=== PATIENT | female | born 1980 | race Caucasian/White ===

== ENCOUNTER 2018-11-18 13:03 | Emergency (ER) | payer BC, SELFPAY ==
[2018-11-18 13:06] VITALS: BP 121/71; PULSE 81; RESP 18; TEMP 36.8; O2SAT 100
--- NOTE | 2018-11-18 13:16 | ED.GENADUL_ITS ---
Discharge Plan Disposition Patient Disposition: HOME Condition: Stable Discharge Details Chief Complaint: AnimalBite Clinical Impression: Dog bite of extremity Primary Care Provider: Fito Harris ED Provider: Rodger Aguillon Home Meds and New Rx's Prescriptions: Continued escitalopram oxalate [Lexapro] 10 mg Tablet 10 mg PO DAILY RF: 0 Discharge Instructions Instructions: Animal Bite (ED) Additional Instructions: Continue to observe signs of dog bite for any secondary infection. If you have worsening symptoms and return immediately for reassessment. You may use over -the-counter acetaminophen or ibuprofen for pain or discomfort. Referrals: Fito Harris [Primary Care Provider] - (As needed for reassessment) Discharge Data Discharge Date/Time-TO BE ENTERED AT DEPARTURE: 11/18/18 13:47 Medical Decision Making Patient presenting to the emergency department for chief complaint of dog bite. Patient states this happened approximately 1 hour ago when she got out of her car some dogs came up and sniffed her as she was approaching the house which she thought nothing of. Then as she walked close to the house a Japanese Bonner came up and bit her in the right thigh and the left posterior calf. She denies any other injury or trauma, states that this appeared to be more similar to n ormal dog behavior. She did go home after the incident and appropriately washed the wound and noted no deep puncture but significant bruising. Physical exam shows moderate ecchymosis and swelling slight swelling to the right thigh with small abrasion and no bleeding noted. No puncture wound is noted on exam. Right calf has small area of ecchymosis that patient states may or may not be acute but no tenderness and otherwise exam is unremarkable. Given only small abrasion I do not feel that patient needs any antibiotic therapies, did discuss with patient risk versus benefit of rabies vaccination series which after thorough discussion patient decided to defer on this medication which I feel is appropriate at this time. Patient does have tetanus that is greater than 10 years ago and is agreeable to updating tetanus today. Otherwise I do not feel there or any other treatments needed except for basic wound care that patient can perform at home. After discussion of diagnosis and plan of care patient has no further needs, questions, or concerns and states clear understanding to return to the emergency department for any worsening symptoms. HPI General Mode of arrival: ambulatory . Date/Time Provider Initiated Documentation: 11/18/18 13:12 . Limitations to Documentation: no limitations . Information obtained by: patient and RN notes reviewed . History of Present Illness 38 year old F presents to the emergency department with the chief complaint of Dog bite, right thigh, Patient notes no other symptoms.. Patient did receive the following treatments prior to arrival, none Related Data Home Medications Medication Instructions Recorded Confirmed escitalopram oxalate [Lexapro] 10 mg PO DAILY 11/18/18 11/18/18 Allergies Allergy/AdvReac Type Severity Reaction Status Date / Time No Known Allergies Allergy Unverified 11/18/18 13:09 General Stated Complaint: AnimalBite CHE: 3 Review of Systems Musculoskeletal Denies abnormal gait, Denies deformity, Denies limited range of motion and Denies muscle weakness Integumentary/Breasts Reports as per HPI Neurologic Denies abnormal gait PFSH Medical History Anxiety Surgical History Repair of umbilical hernia Social History Smoking/Tobacco Use Status: Never Alcohol Intake: never Do you feel safe at home: Yes Do you feel safe in your relationship?: Yes Exam Const General: cooperative, no acute distress and not ill appearing Orientation: alert, awake and oriented x3 Resp Effort & Inspection: normal respiratory effort, able to speak in complete sentences and no respiratory distress Extrem Right lower extremity: hip/thigh Details: tenderness Location: of the proximal upper leg Location: laterally, normal ROM and ecchymosis (To right thigh with small abrasion no puncture wound); no deformity Left lower extremity: lower leg Details: ecchymosis (lateral calf); no tenderness Course Vital Signs Temperature 36.8 C 11/18/18 13:06 Pulse 81 11/18/18 13:06 Respiratory Rate 18 11/18/18 13:06 Blood Pressure 121/71 11/18/18 13:06 Pulse Oximetry 100 11/18/18 13:06 Temperature 36.8 C 11/18/18 13:06 Temperature Source Skin 11/18/18 13:06 Pulse 81 11/18/18 13:06 Respiratory Rate 18 11/18/18 13:06 Respiratory Effort 11/18/18 13:10 Blood Pressure 121/71 11/18/18 13:06 Blood Pressure Position Sitting 11/18/18 13:06 Pulse Oximetry 100 11/18/18 13:06 Oxygen Delivery Method Room Air 11/18/18 13:06 Oxygen Flow Rate 0 11/18/18 13:06 Pain Level 1 11/18/18 13:06
[2018-11-18 13:50] VITALS: BP 121/71; PULSE 81; RESP 18; TEMP 36.8; O2SAT 100
== END 2018-11-18 13:47 | disposition home or self-care (01) ==
PROVIDERS: Emergency Provider Nurse Practitioner Family; PCP Nurse Practitioner Family
DX: S70.311A Abrasion, right thigh, initial encounter (principal); S80.12XA Contusion of left lower leg, initial encounter; W54.0XXA Bitten by dog, initial encounter
CPT/HCPCS: 99282

== ENCOUNTER 2019-04-01 01:04 | Outpatient (CLI) | payer BC, SELFPAY ==
[2019-04-01 09:53] LABS: Anion Gap 7.8 mmol/L (3-11); BUN 15 mg/dL (7-18); CO2 27.2 mmol/L (21.0-32.0); CREATININE 0.87 mg/dL (0.55-1.02); Calcium 8.3 mg/dL (8.5-10.1); Calculated LDL 71 mg/dL; Chloride 105 mmol/L (98-107); Cholesterol 124 mg/dL (50-200); Glucose 87 mg/dL (70-100); HDL Cholesterol 46 mg/dL (40-60); Potassium 4.3 mmol/L (3.5-5.1); Sodium 140 mmol/L (136-145); TSH 1.16 uIU/mL (0.36-3.74); Triglyceride 36 mg/dL (30-150)
== END 2019-04-01 01:24 ==
PROVIDERS: PCP Nurse Practitioner Family; Visit Provider Nurse Practitioner Family
DX: Z00.00 Encounter for general adult medical examination without abnormal findings (principal); Z83.49 Family history of other endocrine, nutritional and metabolic diseases
CPT/HCPCS: 36415; 80048; 80061; 84443

== ENCOUNTER 2020-04-07 12:32 | Outpatient (REF) | payer BC, SELFPAY ==
--- NOTE | 2020-04-07 09:30 | PAPFT_PTH ---
PATIENT: Lizy Daily LOC: XU U#:[id number] AGE/SX: 39/F ROOM: RE04/07/[address]: TONE Kumar : 1980 BED: DIS: 04/07/2020 SPEC #: [id number] RECD: 04/07/20 13:16 STATUS: DEWEY REDusty #: [id number] KAYLEE: 04/07/20 09:[address]: Patti Estrada DEPT: [facility] Cytology RECD BY: Daja Silva ENTERED: 04/07/20 13:16 SP TYPE: PAPFT OTHR DR: Fito Harris Tissues: 1 - CX/ENDOCX FOR PAP SMEARS Procedures: PAP THIN PREP/UVM Screening HPV DNA PROBE Comments: [id number] ([id number] [facility])
== END 2020-04-07 12:52 ==
LOC: LBN 12:32
PROVIDERS: PCP Nurse Practitioner Family; Visit Provider Nurse Practitioner Family
DX: Z12.4 Encounter for screening for malignant neoplasm of cervix (principal)
CPT/HCPCS: 88142; 87624

== ENCOUNTER 2020-11-25 16:49 | Outpatient (REF) | payer BC, SELFPAY ==
[2020-11-29 14:58] LABS: Chlamydia Result Negative (Negative); GC Result Negative (Negative)
== END 2020-11-25 16:50 | disposition home or self-care (01) ==
LOC: LBN 16:49
PROVIDERS: PCP Nurse Practitioner Family; Visit Provider Nurse Practitioner Family
DX: Z11.3 Encounter for screening for infections with a predominantly sexual mode of transmission (principal)
CPT/HCPCS: 87491; 87591

== ENCOUNTER 2021-01-27 18:05 | Outpatient (REF) | payer BC, SELFPAY ==
[2021-01-30 14:04] LABS: Chlamydia Result Negative (Negative); GC Result Negative (Negative)
== END 2021-01-27 18:06 | disposition home or self-care (01) ==
LOC: LBN 18:05
PROVIDERS: PCP Nurse Practitioner Family; Visit Provider Obstetrics & Gynecology
DX: Z11.3 Encounter for screening for infections with a predominantly sexual mode of transmission (principal)
CPT/HCPCS: 87491; 87591

== ENCOUNTER 2021-04-28 12:38 | Outpatient (CLI) | payer BC, SELFPAY ==
--- NOTE | 2021-04-28 11:59 | DI.RAD_ITS ---
Exam(s) XR CHEST 2V PA LATERAL EXAM: XR CHEST 2V PA LATERAL CLINICAL HISTORY: COUGH, R05.8 TECHNIQUE: 2D digital imaging was performed of the chest. Two images were obtained. PA and lateral views were obtained. COMPARISON: No exams were available for comparison FINDINGS: MEDIASTINUM: Normal. HEART: Normal. PULMONARY VASCULATURE: Normal. LUNGS: Clear. PLEURAL SPACE: No pleural effusion or pneumothorax. BONE:Within normal limits for the patient's age. OTHER FINDINGS:Normal. IMPRESSION: No acute pulmonary findings. DATA REPOSITORY: RADIATION DOSE DELIVERED:
== END 2021-04-28 12:58 ==
LOC: DI 12:41
PROVIDERS: PCP Nurse Practitioner Family; Visit Provider Family Medicine
DX: R05.8 Other specified cough (principal)
CPT/HCPCS: 71046

== ENCOUNTER 2021-04-28 15:19 | Outpatient (REF) | payer BC, SELFPAY ==
[2021-04-28 14:08] LABS: Abs Immature Grans 0.02 10^3/uL (0.0-0.06); Absolute Basophil Count 0.05 10^3/uL (0.0-0.2); Absolute Eosinophil Count 0.08 10^3/uL (0.0-0.7); Absolute Lymphocyte Count 1.87 10^3/uL (1.2-3.4); Absolute Monocyte Count 0.56 10^3/uL (0.1-0.8); Absolute Neutrophil Count 3.72 10^3/uL (1.2-6.7); Basophils % 0.8; Eosinophils % 1.3; HCT 38.1 % (36.0-46.0); HGB 11.6 g/dL (11.2-15.7); Immature Grans % 0.3; Lymphocytes % 29.7; MCH 27.3 pg (27.0-33.0); MCHC 30.4 % (32.0-36.0); MCV 89.6 fL (80-95); MPV 12.5 fL (8.0-11.0); Monocytes % 8.9; Nucleated RBC 0 %; Platelet Count 203 10^3/uL (130-400); RBC 4.25 10^6/uL (3.93-5.22); RDW 13.7 % (11.7-14.6); RDW-SD 44.7 fL
[2021-04-28 14:38] LABS: ALT 22 U/L (14-59); AST 14 U/L (15-37); Albumin 3.9 g/dL (3.4-5.0); Alkaline Phosphatase 56 U/L (46-116); Anion Gap 6.4 mmol/L (3-11); BUN 17 mg/dL (7-18); Bilirubin, Total 0.6 mg/dL (0.2-1.0); CO2 29.6 mmol/L (21.0-32.0); CREATININE 0.9 mg/dL (0.55-1.02); Calcium 8.7 mg/dL (8.5-10.1); Chloride 105 mmol/L (98-107); Glucose 85 mg/dL (74-106); Potassium 4.3 mmol/L (3.5-5.1); Sodium 141 mmol/L (136-145); Total Protein 7.2 g/dL (6.4-8.2)
[2021-04-29 18:13] LABS: COVID-19 RT-PCR UVMMC Result Negative (Negative)
== END 2021-04-28 15:20 | disposition home or self-care (01) ==
LOC: LBN 15:19
PROVIDERS: PCP Nurse Practitioner Family; Visit Provider Family Medicine
DX: J02.9 Acute pharyngitis, unspecified (principal); R05.8 Other specified cough; Z20.822 Contact with and (suspected) exposure to COVID-19
CPT/HCPCS: 80053; U0003; 85025

== ENCOUNTER 2021-06-16 16:47 | Outpatient (REF) | payer BC, SELFPAY ==
--- NOTE | 2021-06-16 15:30 | SKI_PTH ---
PATIENT: Lizy Daily LOC: XU U#:[id number] AGE/SX: 41/F ROOM: RE06/16/[address]: Selin Hess MD : 1980 BED: DIS: 06/16/2021 SPEC #: [id number] RECD: 06/16/21 16:51 STATUS: DEWEY NEVAREZ #: [id number] KAYLEE: 06/16/21 15:[address]: Selin Hess DEPT: Surgical Specimen RECD BY: Daja Silva ENTERED: 06/16/21 16:52 SP TYPE: HOLLY BAUER DR: Fito Harris Tissues: 1 - SKIN BIOPSY(SHAVE/PUNCH) Procedures: GROSS AND MICRO LEVEL 3 Comments: [id number]
== END 2021-06-16 16:48 | disposition home or self-care (01) ==
LOC: LBN 16:47
PROVIDERS: PCP Nurse Practitioner Family; Visit Provider Obstetrics & Gynecology
DX: L72.3 Sebaceous cyst (principal)
CPT/HCPCS: 88304; 88305

== ENCOUNTER 2021-06-22 16:24 | Outpatient (REF) | payer BC, SELFPAY ==
[2021-06-23 18:10] LABS: Chlamydia Result Negative (Negative); GC Result Negative (Negative)
== END 2021-06-22 16:25 | disposition home or self-care (01) ==
LOC: LBN 16:24
PROVIDERS: PCP Nurse Practitioner Family; Visit Provider Obstetrics & Gynecology
DX: Z11.3 Encounter for screening for infections with a predominantly sexual mode of transmission (principal)
CPT/HCPCS: 87491; 87591

== ENCOUNTER 2021-06-23 01:43 | Outpatient (CLI) | payer BC, SELFPAY ==
[2021-06-23 15:34] LABS: C-Reactive Protein < 0.05 mg/dL (0.0-0.3)
[2021-06-26 11:12] LABS: Syphilis Serology (RPR) Negative (Negative)
[2021-06-26 11:34] LABS: Hepatitis A Antibody IgM Negative (Negative); Hepatitis B Core Antibody Negative (Negative); Hepatitis B surface Ag Negative (Negative); Hepatitis C Ab w Rflx HCV PCR Negative (Negative)
[2021-06-26 11:39] LABS: HIV-1/2 Ag & Ab Screen Negative (Negative)
[2021-06-26 14:00] LABS: ANA Interpretation Positive (Negative)
== END 2021-06-23 01:44 | disposition home or self-care (01) ==
LOC: LBO 01:43
PROVIDERS: PCP Nurse Practitioner Family; Visit Provider Obstetrics & Gynecology
DX: Z11.3 Encounter for screening for infections with a predominantly sexual mode of transmission (principal); N90.89 Other specified noninflammatory disorders of vulva and perineum; Z11.4 Encounter for screening for human immunodeficiency virus [HIV]; Z11.59 Encounter for screening for other viral diseases
CPT/HCPCS: 36415; 86704; 86709; 86803; 87340; 87389; 86038; 86140; 86592

== ENCOUNTER 2021-07-03 12:23 | Outpatient (REF) | payer BC, SELFPAY | END 2021-07-03 12:24 | disposition home or self-care (01) | LOC: LBN 12:23 | PROVIDERS: PCP Nurse Practitioner Family; Visit Provider Obstetrics & Gynecology | DX: N94.89 Other specified conditions associated with female genital organs and menstrual cycle (principal) | CPT/HCPCS: 87480; 87510; 87660 ==

== ENCOUNTER 2022-01-19 02:15 | Outpatient (CLI) | payer BC, SELFPAY ==
--- OUTSIDE RECORDS SUMMARY | 2022-01-19 02:17 | XMS_ITS | Continuity of Care Document ---
:1980 External Reference #:[id number] Author Advance Directives Description No Information Available Problems Description No Information Available Medications Active Medications SIG Qnty Indications Ordering Provide r Date Amoxicillin 500mg 1 po tid Unknown 2008 Capsules Vital Signs Date Vital Result Comment 06/22/2016 10:39am Weight 119.00 lb Height 64 inches BP Systolic 114 mmHg BP Diastolic 80 mmHg Weight 53.977 kg Height in cm's 162.6 cm BMI (Body Mass Index) 20.42 kg/m2 BSA (Body Surface Area) 1.56 m2 05/21/2008 8:41am Weight 118.00 lb BP Systolic 114 mmHg BP Diastolic 72 mmHg Heart Rate 60 /min Respiratory Rate 16 /min Body Temperature 97.9 ?F Weight 53.524 kg Body Temperature 36.6 ?C Assessments Description No Information Available
--- OUTSIDE RECORDS SUMMARY | 2022-01-19 02:17 | XMS_ITS | Encounter Summary ---
:1980 Author Organization [facility] Address [address] [place] [address] Care Team Providers Name Role Phone Sedrick Gant Primary Care Provider Encounter Details Date Type Department Care Team Description 04/27/2010 Office Visit Dermatology Manish Hodges MD [address] [place] [address] [address] DERMATOLOGY [place], [place] [address] [place] [address] [phone] (Wo rk) Social History Tobacco Use Types Packs/Day Years Used Date Never Assessed Sex Assigned at Date Recorded Not on file documented as of this encounter Plan of Treatment Not on filedocumented as of this encounter Visit Diagnoses Not on filedocumented in this encounter Care Teams Supervisor Record Press Relationship Specialty Start Date End Date Sedrick Gant PA PCP - General 04/11/10 05/21/11 [address] [place] [id number] documented as of this encounter
--- OUTSIDE RECORDS SUMMARY | 2022-01-19 02:17 | XMS_ITS | Clinical Summary ---
:1980 Author Organization [facility] Address [address] [place] [address] Care Team Providers Name Role Phone Fito Harris KENTRELL Primary Care Provider Social History Tobacco Use Types Packs/Day Years Used Date Never Assessed Sex Assigned at Date Recorded Not on file Plan of Treatment Health Maintenance Due Date Last Done Comments Hepatitis C Screen 1980 COVID-19 Vaccine (1) 1985 Insurance Payer Benefit Plan / Subscriber ID Effective Dates Phone Addre ss Type Group ANTHEM BCBS [place] [id number] 2016-Solitario [phone] [address] [address] [place] [id number] [address] [place] [address] Lizy Nice Personal/Family Self 1980 [address] (Home) [place] [address] Lizy Nice Personal/Family Self 1980 [address] (Home) [place] [address] Care Teams Oven Stripper Relationship Specialty Start Date End Date Fito Harris APRN PCP - General 05/20/[address] [place] [address] [address] [place], [place] [id number]
--- OUTSIDE RECORDS SUMMARY | 2022-01-19 02:17 | XMS_ITS | Encounter Summary ---
:1980 Author Organization [facility] Address [address] [place] [address] Care Team Providers Name Role Phone Unavailable Primary Care Provider Unavailable Encounter Details Date Type Department Care Team Description 06/10/2006 Results Only [facility] - Génesis Madison, conversion CNM [address] [address] [place] [address] (Wo rk) Social History Tobacco Use Types Packs/Day Years Used Date Never Assessed Sex Assigned at Date Recorded Not on file documented as of this encounter Plan of Treatment Not on filedocumented as of this encounter Procedures Procedure Name Priority Date/Time Associated Diagnosis Comme nts CYTOPATHOLOGY Routine 06/10/2006 0:00 EST Results for this procedure are i n the results section . documented in this encounter Results CYTOPATHOLOGY (06/10/2006 0:00 EST) Pathology Report: CYTOPATHOLOGY REPORT [facility] Reports generated via electronic interface contain harsha ginal data; however they are lacking the format of the original re port. Caution should be taken when reading/interpreting unfo rmatted reports. Name: ? LIZY GALEANA ? Accession #: ? [id number] : ? 1980 (Age: 26) ??F ?Collect Date: ? 05/21 Location: ? [facility] ? Receive Date : ? 06/11/2006 Provider: ?GÉNESIS BARRIOS [facility] Copy to: ? Specimen/Source: ? ThinPrep Pap Test, Cervix/Endocervix, processed on [employer] ThinPrep Imaging System, with manual evaluation Last Menstrual Period: ? 05/20/06 Other: ? Additional clinical information: All previous paps wnl per patient HPVA - HPV testing requested if ASC-US on the current ThinPrep Pap test. ? SPECIMEN ADEQUACY ? Satisfactory for Evaluation - transformation zone component present GENERAL CATEGORIZATION ? Negative for Intraepithelial Lesion or Malignan cy ? Document reviewed and electronically signed by: ? YU Nayak(ASCP) ? Report Date: ??06/12/2006 10:21 End of Report Specimen Performing Organization Address City/State/ZIP Code Phon e Number [facility] [address] [place] [address] SERVICES [facility] [address] [place] [address] documented in this encounter Visit Diagnoses Not on filedocumented in this encounter
--- OUTSIDE RECORDS SUMMARY | 2022-01-19 02:17 | XMS_ITS | Encounter Summary ---
:[address] [facility] Address [address] [place] [address] Care Team Providers Name Role Phone Unavailable Primary Care Provider Unavailable Encounter Details Date Type Department Care Team Description 06/19/2007 Results Only [facility] - Génesis Madison, conversion CNM [id number] [place] [phone] (Wo rk) Social History Tobacco Use Types Packs/Day Years Used Date Never Assessed Sex Assigned at Date Recorded Not on file documented as of this encounter Plan of Treatment Not on filedocumented as of this encounter Procedures Procedure Name Priority Date/Time Associated Diagnosis Comme nts CYTOPATHOLOGY Routine 06/19/2007 0:00 EST Results for this procedure are i n the results section . documented in this encounter Results CYTOPATHOLOGY (06/19/2007 0:00 EST) Pathology Report: CYTOPATHOLOGY REPORT [facility] Reports generated via electronic interface contain harsha ginal data; however they are lacking the format of the original re port. Caution should be taken when reading/interpreting unfo rmatted reports. Name: ? LIZY GALEANA ? Accession #: ? [id number] : ? 1980 (Age: 27) ??F ?Collect Date: ? 05/22 Location: ? [facility] ? Receive Date : ? 06/23/2007 Provider: ?GÉNESIS BARRIOS [facility] Copy to: ? Specimen/Source: ? ThinPrep Pap Test, Cervix/Endocervix, processed on [employer] ThinPrep Imaging System, with manual evaluation Last Menstrual Period: ? 06/02/07 Other: ? HPVA - HPV testing requested if ASC-US on the current ThinPrep Pap test. ? SPECIMEN ADEQUACY ? Unsatisfactory for Evaluation, - insufficient numbers of squamous epith elial cells (less than 10% of expected cellularity) - sample preparation compromised by excessive blood GENERAL CATEGORIZATION ? Specimen processed and examined, but unsatisfac tory for evaluation of epithelial abnormality. Recommend repeat Pap test or further follow up, as cli nically indicated. ? Document reviewed and electronically signed by: ? YU Nayak(ASCP) ? Report Date: ??06/27/2007 12:12 End of Report Specimen Performing Organization Address City/State/ZIP Code Phon e Number [facility] [address] [place] [address] SERVICES [facility] [address] [place] [address] documented in this encounter Visit Diagnoses Not on filedocumented in this encounter
--- OUTSIDE RECORDS SUMMARY | 2022-01-19 02:17 | XMS_ITS | Encounter Summary ---
:1980 Author Organization [facility] Address [address] [place] [address] Care Team Providers Name Role Phone Unavailable Primary Care Provider Unavailable Reason for Referral Consult (Routine) - Closed Specialty Diagnoses / Referred By Contact Referred To Contact Procedures Reproductive Diagnoses Male factor infertility Kristopher Carr Mp[facility] and MD Saúl [address] Infertility [address] [place], [place] [address] [address] [facility] Fax: [phone] [place] [phone] Referral ID Status Reason Start Date Expiration Date Visits V isits Requested Authorized [id number] Closed Specialty 05/22/2018 1 1 Services Required Question Answer Reason for Request: Azoospermia Encounter Details Date Type Department Care Team Description 05/22/2018 Orders Only [facility] Kristopher Carr Male fac tor Urology - [facility] peg Hays MD infertility (Primary [address] [place] [address] Avenue [phone] [address] (Wo rk) Social History Tobacco Use Types Packs/Day Years Used Date Never Assessed Sex Assigned at Date Recorded Not on file documented as of this encounter Plan of Treatment Scheduled Referrals Name Type Priority Associated Diagnoses Order S chedule AMB CONS/FOLLOW UP Outpatient Referral Routine Male Factor Or dered: INFERTILITY Infertility 05/22/2018 documented as of this encounter Visit Diagnoses Diagnosis 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
--- OUTSIDE RECORDS SUMMARY | 2022-01-19 02:17 | XMS_ITS | Encounter Summary ---
:[address] [facility] Address [address] [place] [address] Care Team Providers Name Role Phone Fito Harris APRN Primary Care Provider Encounter Details Date Type Department Care Team Description 06/17/2021 Lab Requisition [facility] Selin Hess, Encounter for other Pathology & MD general examination Laboratory Medicine [address] [place], [place] [address] [facility] [phone] [place] [address] Social History Tobacco Use Types Packs/Day Years Used Date Never Assessed Sex Assigned at Date Recorded Not on file documented as of this encounter Plan of Treatment Not on filedocumented as of this encounter Procedures Procedure Name Priority Date/Time Associated Diagnosis Comme nts SURGICAL PATHOLOGY Today 06/16/2021 15:30 Encounter for othe r Results for this EST general examination procedur e are in the results section. documented in this encounter Results SURGICAL PATHOLOGY (06/16/2021 15:30 EST) Note to Patient The following [facility] pathology results CENTER have been interpreted LABORATORY by your pathologist SERVICES and may be available to you before your health provider has had the opportunity to review them. Please allow time for your provider to receive these results and explore management options, if applicable. Final Diagnosis A. SKIN/CYST, PERINEUM, EXCISION/DEBRIDEMENT: [facility] - Fibroadipose tissue and ac clari inflammatory debris, consistent with abscess formation in the setting of a sebaceous cyst. [facility]ENTER LABORATORY SERVICES Attestation By the signature [facility] Electronica lly below, the attending CENTER signed by physician Srinivasan certifies LABORATORY Steve Mcgee MD on that they have 1) SERVICES 06/21/2021 a t 0836 personally conducted a gross and/or microscopic examination of the described specimen(s), and/or personally interpreted the results of laboratory testing of the described specimen(s), and 2) personally rendered or confirmed the above diagnosis. Clinical History Perineal cyst [facility] Gross Description A. [facility] Received in formalin [place] d with proper patient identification (initials R, T) and not otherwise specified is a 0.7 x 0.6 x 0.4 cm aggregate of michaels soft tissue. The specimen is submitted entirely in A1. [facility] AFSANEH ROSADO(ASCP) 06/19/2021 7:53 SER VICES Performing Lab [facility] Scanned Images [facility] Specimen Tissue - Skin (tissue) specimen (specime n) Performing Organization Address City/State/ZIP Code Phon e Number [facility] [address] [place] [address] SERVICES documented in this encounter Visit Diagnoses Diagnosis Encounter for other general examination documented in this encounter Care Teams Director Financial Systems Relationship Specialty Start Date End Date Fito Harris APRN PCP - General 05/20/[address] [place] [address] [address] [place] [address] documented as of this encounter
--- OUTSIDE RECORDS SUMMARY | 2022-01-19 02:17 | XMS_ITS | Encounter Summary ---
:1980 Author Organization [facility] Address [address] [place] [address] Care Team Providers Name Role Phone Unavailable Primary Care Provider Unavailable Encounter Details Date Type Department Care Team Description 07/08/2008 Before PRISM [facility] - Génesis Lam Converted Visit Maple conversion SHY Mandujano (Maple) [id number] [place] [phone] (Wo rk) Social History Tobacco Use Types Packs/Day Years Used Date Never Assessed Sex Assigned at Date Recorded Not on file documented as of this encounter Plan of Treatment Not on filedocumented as of this encounter Procedures Procedure Name Priority Date/Time Associated Diagnosis Comme [facility] CYTOPATHOLOGY Routine 07/08/2008 0:00 EST Results for this procedure are i n the results section . documented in this encounter Results CYTOPATHOLOGY (07/08/2008 0:00 EST) Pathology Report: CYTOPATHOLOGY REPORT ? [facility] ? LAB Reports generated via Lum[employer] interface contain original data; ? however they are lacking the format of the original report. ? Caution should be taken when reading/interpreting unformatted reports. ? Name: ? LISSETTLIZY ? Accession #: ? [id number] ? : ? 1980 (Age: 28) ??F ?Collect Date: ? 07/08/2008 ? Location: ? [facility] ? Receive Date: ? 07/12/2008 ? Provider: ?GÉNESIS LAR SEN CNM ? Copy to: ? Specimen/Source: ? Pap Test, Cervix/Endocervix, ThinPrep Imaging System ? with manual evaluation ? Last Menstrual Period: ? 02/02/09 ? Other: ? HPVA - HPV testing requested if ASC-US on the current ThinPrep Pap test. ? SPECIMEN ADEQUACY ? Satisfactory for Eval uation ? - transformation zone compon ent present ? - scant squamous epithelial component secondary to excessive inflammation ? GENERAL CATEGORIZATION ? Negative for Intraepi thelial Lesion or Malignancy ? Document reviewed and electr onically signed by: ? Angeline Jaimes, SCT( ASCP) ? Report Date: ??02/27/ 2009 16:19 ? End of Report ? Specimen Performing Organization Address City/State/ZIP Code Phon e Number [facility] [address] [place] [address] SERVICES [facility] [address] [place] [address] documented in this encounter Visit Diagnoses Not on filedocumented in this encounter
--- OUTSIDE RECORDS SUMMARY | 2022-01-19 02:17 | XMS_ITS | Clinical Summary ---
:1980 Author Organization [facility] [place] [address] Care Team Providers Name Role Phone Grisel Jean APRN Primary Care Provider [phone] Medications No known medications Active Problems Problem Noted Date Acne vulgaris 05/22/2011 Social History Tobacco Use Types Packs/Day Years Used Date Never Smoker Sex Assigned at Date Recorded Not on file Plan of Treatment Health Maintenance Due Date Last Done Comments Covid-19 Vaccine (#1) 1985 HIV screen 1998 Hepatitis C Screening 1998 Tdap adult 1999 Tetanus vaccine 1999 HPV test 2010 PAP Smear 2010 Breast Cancer Share Decision Needed 2020 Influenza (Flu) vaccine ( of - Influenza standard 01/18/2022 series) Care Teams Manager Infusion Relationship Specialty Start Date End Date Grisel Jean APRN PCP - General 05/22/[address] [place] [address] [place] [address]
--- OUTSIDE RECORDS SUMMARY | 2022-01-19 02:17 | XMS_ITS | Encounter Summary ---
:1980 Author Organization [facility] Address [address] [place] [address] Care Team Providers Name Role Phone Fito Harris APRN Primary Care Provider Encounter Details Date Type Department Care Team Description 01/28/2021 Lab Requisition [facility] Outr Resulting Lab, Pathology & Laboratory Provider [facility] [address] [place] [address] Social History Tobacco Use Types Packs/Day Years Used Date Never Assessed Sex Assigned at Date Recorded Not on file documented as of this encounter Plan of Treatment Not on filedocumented as of this encounter Procedures Procedure Name Priority Date/Time Associated Comments Diagnosis CHLAMYDIA/N. Routine 01/27/2021 15:00 Results for this GONORRHOEAE AMPLIFIED EDT proced ure are in RNA the results section. documented in this encounter Results CHLAMYDIA/N. GONORRHOEAE AMPLIFIED RNA (01/27/2021 15:00 EDT) Pathologist Sig nature Gonococcus Result Negative Negative [facility] Chlamydia Result Negative Negative [facility] Specimen Swab - Entire wall of cervix (body struc ture) Performing Organization Address City/State/ZIP Code Phon e Number [facility] [address] [place] [address] SERVICES documented in this encounter Visit Diagnoses Not on filedocumented in this encounter Care Teams Wool Puller Relationship Specialty Start Date End Date Fito Harris APRN PCP - General 05/20/21 [facility] [address] [place] [address] documented as of this encounter
--- OUTSIDE RECORDS SUMMARY | 2022-01-19 02:17 | XMS_ITS | Encounter Summary ---
:1980 Author Organization [facility] Address [address] [place] [address] Care Team Providers Name Role Phone Fito Harris APRN Primary Care Provider Encounter Details Date Type Department Care Team Description 06/23/2021 Lab Requisition [facility] Outr Resulting Lab, Pathology & Laboratory Provider [facility] [address] [place] [address] Social History Tobacco Use Types Packs/Day Years Used Date Never Assessed Sex Assigned at Date Recorded Not on file documented as of this encounter Plan of Treatment Not on filedocumented as of this encounter Procedures Procedure Name Priority Date/Time Associated Diagnosis Comme nts HOLD SST Today 06/23/2021 14:35 Results for this EST procedure are i n the results section. SYPHILIS SEROLOGY Today 06/23/2021 14:35 Result s for this EST procedure are i n the results section. ANTI NUCLEAR AB Today 06/23/2021 14:35 Results for this (KELLI), IFA EST procedure are i n the results section. documented in this encounter Results HOLD SST (06/23/2021 14:35 EST) Pathologist Sig nature Hold Hold [facility] Specimen Blood - Venous blood (substance) Performing Organization Address City/[facility]/ZIP Code Phon e Number [facility] [address] [place] [address] SERVICES SYPHILIS SEROLOGY (06/23/2021 14:35 EST) Pathologist Sig nature Syphilis Serology Negative Negative [facility] Specimen Blood - Venous blood (substance) Performing Organization Address City/[facility] Code Phon e Number [facility] [address] [place] [address] SERVICES (ABNORMAL) ANTI NUCLEAR AB (KELLI), IFA (06/23/2021 14:35 EST) KELLI Interpretation Positive (A) Negative [facility] Comment: [facility] For titers greater than or e qual to 1:160 (except the centromere and nucleolar patterns) it is recommended that specific follow-up autoantibody testing ??(such as for dsDNA and Extractable Nuclear Antig SERVICES ens) be performed on all diffuse and/or speckled patterns NOTE: For add-on testing dsD NA is stable for 7 days refrigerated while Extractable Nuclear Antigens are only stable for 48 hours refrigerated. KELLI Titer and Pattern 1:1280 Dense Fine [place] [address] Speckled [facility] Specimen Blood - Venous blood (substance) Narrative [facility] - 06/26/2021 13:55 EST Results were obtained with the INOVA NOV A Lite HEp-2 KELLI Kit by indirect immunofluorescence. Performing Organization Address City/State/ZIP Code Phon e Number [facility] [address] [place] [address] SERVICES documented in this encounter Visit Diagnoses Not on filedocumented in this encounter Care Teams Clinical Trial Head Relationship Specialty Start Date End Date Fito Harris APRN PCP - General 05/20/[address] [place] [address] [address] [place], [place] [id number] documented as of this encounter
--- OUTSIDE RECORDS SUMMARY | 2022-01-19 02:17 | XMS_ITS | Encounter Summary ---
:1980 Author Organization [facility] Address [address] [place] [address] Care Team Providers Name Role Phone Fito Harris APRN Primary Care Provider Encounter Details Date Type Department Care Team Description 11/26/2020 Lab Requisition [facility] Outr Resulting Lab, Pathology & Laboratory Provider [facility] [address] [place] [address] Social History Tobacco Use Types Packs/Day Years Used Date Never Assessed Sex Assigned at Date Recorded Not on file documented as of this encounter Plan of Treatment Not on filedocumented as of this encounter Procedures Procedure Name Priority Date/Time Associated Comments Diagnosis CHLAMYDIA/N. Routine 11/25/2020 15:30 Results for this GONORRHOEAE AMPLIFIED EDT proced ure are in RNA the results section. documented in this encounter Results CHLAMYDIA/N. GONORRHOEAE AMPLIFIED RNA (11/25/2020 15:30 EDT) Pathologist Sig nature Gonococcus Result Negative Negative [facility] Chlamydia Result Negative Negative [facility] Specimen Swab - Entire endocervix (body structure ) Performing Organization Address City/State/ZIP Code Phon e Number [facility] [address] [place] [address] SERVICES documented in this encounter Visit Diagnoses Not on filedocumented in this encounter Care Teams Unix System Administrator Relationship Specialty Start Date End Date Fito Harris APRN PCP - General 05/20/21 [facility] [address] [place] [address] documented as of this encounter
--- OUTSIDE RECORDS SUMMARY | 2022-01-19 02:17 | XMS_ITS | Continuity of Care Document ---
:1980 External Reference #:[id number] Author Advance Directives Description No Information Available [...]
--- OUTSIDE RECORDS SUMMARY | 2022-01-19 02:17 | XMS_ITS | Encounter Summary ---
:1980 Author Organization [facility] Address [address] [place] [address] Care Team Providers Name Role Phone Fito Harris APRN Primary Care Provider Encounter Details Date Type Department Care Team Description 06/23/2021 Lab Requisition [facility] Outr Resulting Lab, Pathology & Laboratory Provider [facility] [address] [place] [id number] Social History Tobacco Use Types Packs/Day Years Used Date Never Assessed Sex Assigned at Date Recorded Not on file documented as of this encounter Plan of Treatment Not on filedocumented as of this encounter Procedures Procedure Name Priority Date/Time Associated Comments Diagnosis HIV 1/2 ANTIGEN AND Routine 06/23/2021 14:35 Resu lts for this ANTIBODY, 4TH EST procedure are in GENERATION the results section. documented in this encounter Results HIV 1/2 ANTIGEN AND ANTIBODY, 4TH GENERATION (06/23/2021 14:35 EST) HIV 1 and 2 NegativeComment: If Negative [facility] Antibody/p24 acute HIV-1 LABORATORY Antigen, 4th infection is SERVICES Generation suspected in a high risk patient, submit plasma specimen for HIV-1 RNA quantitation test. Specimen Blood - Venous blood (substance) Narrative [facility] - 06/26/2021 11:36 EST Fourth Generation assay performed on the Siemens Centaur XPT. Performing Organization Address City/State/ZIP Code Phon e Number [facility] [address] [place] [address] SERVICES documented in this encounter Visit Diagnoses Not on filedocumented in this encounter Care Teams Certified Tumor Registrar Relationship Specialty Start Date End Date Fito Harris APRN PCP - General 05/20/[address] [place] [address] [address] [place], [place] [phone] documented as of this encounter
--- OUTSIDE RECORDS SUMMARY | 2022-01-19 02:17 | XMS_ITS | Encounter Summary ---
:1980 Author Organization [facility] Address [address] [place] [address] Care Team Providers Name Role Phone Fito Harris APRN Primary Care Provider Encounter Details Date Type Department Care Team Description 04/28/2021 Lab Requisition [facility] Outr Resulting Lab, Pathology & Laboratory Provider [facility] [address] [place] [address] Social History Tobacco Use Types Packs/Day Years Used Date Never Assessed Sex Assigned at Date Recorded Not on file documented as of this encounter Plan of Treatment Not on filedocumented as of this encounter Procedures Procedure Name Priority Date/Time Associated Diagnosis Comme nts COVID-19 TEST [facility] Today 04/28/2021 11:25 LAB PCR EST COVID-19 TESTING Routine 04/28/2021 11:25 Results for this EST procedure are i n the results section. documented in this encounter Results COVID-19 TEST [facility] LAB PCR (04/28/2021 11:25 EST) Specimen Swab Performing Organization Address City/State/ZIP Code Phon e Number [facility] [address] [place] [address] SERVICES COVID-19 TESTING (04/28/2021 11:25 EST) COVID-19 rt-PCR Negative Negative [facility] Result Comment: [facility]ENTER [facility] This test has not been FDA c leared or approved. This test has been authorized by FDA under an EUA for use by authorized laboratories. This test has been authorized only for detection of nucleic acid fro SERVICES m 2019-nCoV, not for any oth er viruses or pathogens. This test is only authorized for the duration of the declaration that circumstances exist justifying the authorization of emergency use of in vitro d iagnostic tests for detectio n and/or diagnosis of 2019-nCoV under section 564(b)(1) of Act, 21 U.S.C ?? 360bbb-3(b) (1), unless the authorization is terminated or revoked sooner. Negative results do not prec lude 2019-nCoV infection and should not be used as the sole basis for treatment or other patient management decisions. Negative results must be combined with clinical observa tions, patient history, and epidemiological informatio n. Performed on the eBooks in Motionher Fusion instrument Performing Lab [place] [facility] Lab [facility] Specimen Swab Performing Organization Address City/State/ZIP Code Phon e Number [facility] [address] [place] [address] SERVICES documented in this encounter Visit Diagnoses Not on filedocumented in this encounter Care Teams Electronics Test Engineer Relationship Specialty Start Date End Date Fito Harris APRN PCP - General 05/20/[address] [place] [address] [address] [place] [address] documented as of this encounter
--- OUTSIDE RECORDS SUMMARY | 2022-01-19 02:17 | XMS_ITS | Encounter Summary ---
:1980 Author Organization [facility] Address [address] [place] [address] Care Team Providers Name Role Phone Grisel Jean KENTRELL Primary Care Provider [phone] Reason for Visit Reason Comments Acne Encounter Details Date Type Department Care Team Description 05/22/2011 Office Visit Dermatology Manish Hodges, Acne vulgaris [address] [facility] (Primary Dx) [address] [place] [address] [id number] [place] [address] [phone] (Wo rk) Social History Tobacco Use Types Packs/Day Years Used Date Never Smoker Sex Assigned at Date Recorded Not on file documented as of this encounter Progress Notes Manish Hodges MD - 05/22/2011 5:49 PM EST Problem: Followup acne vulgaris. Lizy follows up and states that she still is not achieving adequate control of her acne. She has always been very desirous to avoid oral therapies in the past. She prefers just to use topicals. Physical examination reveals a pleasant now 31-year-old woman who has mild papular acne on her jaw line today and she states a little bit on her shoulders and back. It is fairly mild today. Assessment & Plan: Acne vulgaris, adult. a. Tretinoin in the past was too drying for her and Benzoyl Peroxide in the past caused too much irritation. Currently she is using Clindamycin 1% Solution in the morning and Sulfacet-R Lotion in the evening, but the latter is getting hard to find. She has to wait a week for them to order it and get it. b. Discussed the option of using Clindamycin in the morning and Metronidazole 0.75% Gel in the evening, 45gm dispensed with p.r.n. refills on the latter, and 60ml of the Clindamycin Solution with p.r.n. refills. c. Discussed the option of Spironolactone. The patient would like to think about this. Described the difficulty of treating her adult acne with just topicals. d. RTC p.r.n. Copy: [facility] [place] documented in this encounter Plan of Treatment Not on filedocumented as of this encounter Visit Diagnoses Diagnosis Acne vulgaris - Primary Other acne documented in this encounter Care Teams Combine Mechanic Relationship Specialty Start Date End Date Grisel Jean APRN PCP - General 05/22/[address] [place] [address] [place] [address] documented as of this encounter
--- OUTSIDE RECORDS SUMMARY | 2022-01-19 02:17 | XMS_ITS | Encounter Summary ---
:[address] [facility] Address [address] [place] [address] Care Team Providers Name Role Phone Fito Harris APRN Primary Care Provider Encounter Details Date Type Department Care Team Description 06/22/2021 Lab Requisition [facility] Outr Resulting Lab, Pathology & Laboratory Provider [facility] [address] [place] [address] Social History Tobacco Use Types Packs/Day Years Used Date Never Assessed Sex Assigned at Date Recorded Not on file documented as of this encounter Plan of Treatment Not on filedocumented as of this encounter Procedures Procedure Name Priority Date/Time Associated Comments Diagnosis CHLAMYDIA/N. Routine 06/22/2021 9:45 Results for this GONORRHOEAE AMPLIFIED EST proced ure are in RNA the results section. documented in this encounter Results CHLAMYDIA/N. GONORRHOEAE AMPLIFIED RNA (06/22/2021 9:45 EST) Pathologist Sig nature Gonococcus Result Negative Negative [facility] Chlamydia Result Negative Negative [facility] Specimen Urine - Urine, Initial Void Narrative [facility] - 06/23/2021 18:04 EST A first catch urine specimen is acceptab le for detection of Gonorrhea and Chlamydia, but might detect up to 10% fewer infecti ons when compared with vaginal and endocervical swab samples. Performing Organization Address City/State/ZIP Code Phon e Number [facility] [address] [place] [address] SERVICES documented in this encounter Visit Diagnoses Not on filedocumented in this encounter Care Teams Staff Radiographer Relationship Specialty Start Date End Date Fito Harris APRN PCP - General 05/20/21 [facility] [address] [place], [place] [phone] documented as of this encounter
--- OUTSIDE RECORDS SUMMARY | 2022-01-19 02:17 | XMS_ITS | Encounter Summary ---
:1980 Author Organization [facility] Address [address] [place] [address] Care Team Providers Name Role Phone Fito Harris APRN Primary Care Provider Encounter Details Date Type Department Care Team Description 05/04/2019 Lab Requisition [facility] Unknown, Provider, Pathology & Laboratory [facility] [address] [place] [address] [place] [address] Social History Tobacco Use Types Packs/Day Years Used Date Never Assessed Sex Assigned at Date Recorded Not on file documented as of this encounter Plan of Treatment Not on filedocumented as of this encounter Procedures Procedure Name Priority Date/Time Associated Comments Diagnosis CHLAMYDIA/N. Routine 05/04/2019 9:46 Results for this GONORRHOEAE AMPLIFIED EST proced ure are in RNA the results section. documented in this encounter Results CHLAMYDIA/N. GONORRHOEAE AMPLIFIED RNA (05/04/2019 9:46 EST) Pathologist Sig nature Gonococcus Result Negative Negative [facility] Chlamydia Result Negative Negative [facility] Specimen Urine - Urine (substance) Narrative [facility] - 05/05/2019 15:02 EST A first catch urine specimen is acceptab le for detection of Gonorrhea and Chlamydia, but might detect up to 10% fewer infecti ons when compared with vaginal and endocervical swab samples. Performing Organization Address City/State/ZIP Code Phon e Number [facility] [address] [place] [address] SERVICES documented in this encounter Visit Diagnoses Not on filedocumented in this encounter Additional Health Concerns Infection Onset Date Last Indicated Resolved Time R/O COVID-19 11/30/2019 11/30/2019 12/05/2019 22:17 EDT documented as of this encounter Care Teams Ultrasound Technologist Sonographer Relationship Specialty Start Date End Date Fito Harris APRN PCP - General 05/20/[address] [place] [address] [address] [place] [address] documented as of this encounter
--- OUTSIDE RECORDS SUMMARY | 2022-01-19 02:17 | XMS_ITS | Encounter Summary ---
:1980 Author Organization [facility] Address [address] [place] [address] Care Team Providers Name Role Phone Fito Harris APRN Primary Care Provider Encounter Details Date Type Department Care Team Description 05/04/2019 Lab Requisition [facility] Unknown, Provider, Pathology & Laboratory [facility] [address] [place] [address] [place] [address] Social History Tobacco Use Types Packs/Day Years Used Date Never Assessed Sex Assigned at Date Recorded Not on file documented as of this encounter Plan of Treatment Not on filedocumented as of this encounter Procedures Procedure Name Priority Date/Time Associated Diagnosis Comme nts MEASLES IGG AB Routine 05/04/2019 9:46 EST Result s for this procedure are i n the results section . [facility] Routine 05/04/2019 9:46 EST Results for this procedure are i n the results section . documented in this encounter Results MEASLES IGG AB (05/04/2019 9:46 EST) Measles IgG Ab PositiveComment: See Note [facility] Presence of LABORATORY SERVICES detectable measles virus IgG antibodies. Specimen Blood - Venous blood (substance) Performing Organization Address City/State/ZIP Code Phon e Number [facility] [address] [place] [address] SERVICES [facility] (05/04/2019 9:46 EST) Pathologist Sig nature [facility] 7.9 See Note mIU/mL [facility] TORY SERVICES Specimen Blood - Venous blood (substance) Narrative [facility] - 05/06/2019 15:23 EST NOTE: Female [facility] Reference Ranges (>= 13 Menst ruating): PHYSIOLOGICAL STATUS ? REFE RENCE RANGE ? ---- Follicular (-12 to -4 days): ?? 2.5 - 1 0.2 mIU/mL Midcycle (-3 to +2 days): ?3.4 - 33.4 mIU/mL Luteal (+4 to +12 days): ? 1.5 - 9.1 mIU/mL Postmenopausal: ? 23.0 - 116.3 mIU/mL Reference Ranges for female patients <13 years old have not been established. Performing Organization Address City/State/ZIP Code Phon e Number [facility] [address] [place] [address] SERVICES documented in this encounter Visit Diagnoses Not on filedocumented in this encounter Additional Health Concerns Infection Onset Date Last Indicated Resolved Time R/O COVID-19 11/30/2019 11/30/2019 12/05/2019 22:17 EDT documented as of this encounter Care Teams Outpatient Coder Relationship Specialty Start Date End Date Fito Harris APRN PCP - General 05/20/[address] [place] [address] [address] [place], [place] [phone] documented as of this encounter
[2022-01-19 15:36] LABS: Kit/Specimen SENT
[2022-01-19 15:46] LABS: Abs Immature Grans 0.02 10^3/uL (0.0-0.06); Absolute Basophil Count 0.03 10^3/uL (0.0-0.2); Absolute Eosinophil Count 0.05 10^3/uL (0.0-0.7); Absolute Lymphocyte Count 1.18 10^3/uL (1.2-3.4); Absolute Monocyte Count 0.62 10^3/uL (0.1-0.8); Absolute Neutrophil Count 7.66 10^3/uL (1.2-6.7); Basophils % 0.3; Eosinophils % 0.5; HCT 36.1 % (36.0-46.0); Immature Grans % 0.2; Lymphocytes % 12.3; MCHC 33.2 % (32.0-36.0); MCV 87 fL (80-95); MPV 12.1 fL (8.0-11.0); Monocytes % 6.5; Neutrophils % 80.2; Platelet Count 145 10^3/uL (130-400); RBC 4.14 10^6/uL (3.93-5.22); RDW 14.3 % (11.7-14.6); RDW-SD 46.2 fL; WBC 9.56 10^3/uL (4.4-10.8)
[2022-01-19 16:29] LABS: TSH (W/Ref FT4) 0.76 uIU/mL (0.36-3.74)
[2022-01-19 20:16] LABS: *AMPHETAMINES SCREEN URINE Negative (Negative); *BARBITURATES SCREEN URINE Negative (Negative); *BENZODIAZEPINES SCREEN URINE Negative (Negative); Cannabinoids THC Negative (Negative); Cocaine Screen,Urine Negative (Negative); METHADONE URINE SCREEN Negative (Negative); OPIATES URINE SCREEN Negative (Negative)
[2022-01-19 20:26] LABS: Tricyclic Antidepressants Negative (Negative)
[2022-01-21 09:27] LABS: HIV-1/2 Ag & Ab Screen Negative (Negative)
[2022-01-21 17:27] LABS: Chlamydia Result Negative (Negative); GC Result Negative (Negative)
[2022-01-22 09:39] LABS: Hepatitis C Ab w Rflx HCV PCR Negative (Negative)
[2022-01-22 09:47] LABS: Hepatitis B Surface Ag Negative (Negative)
[2022-01-22 10:12] LABS: Rubella IgG Ab (UVM) Positive (See Note); Varicella IgG Antibody Positive (See Note)
[2022-01-22 15:30] LABS: Syphilis IgG w/Reflex Nonreactive (Nonreactive)
[2022-01-26 12:26] LABS: Buprenorphine Negative ng/mL (Cutoff: 5.0); Norbuprenorphine Negative ng/mL (Cutoff: 2.5)
[2022-02-06 23:33] LABS: Result Summary NEGATIVE; Specimen WB Whole Blood
== END 2022-01-19 02:16 | disposition home or self-care (01) ==
LOC: LBO 02:16
PROVIDERS: PCP Nurse Practitioner Family; Visit Provider Advanced Practice Midwife
DX: Z34.91 Encounter for supervision of normal pregnancy, unspecified, first trimester (principal)
CPT/HCPCS: 36415; 80307; 81220; 81222; 86787; 86803; 86850; 86900; 86901; 87340; 87389; 87491; 87591; 84443; 85025; 86762; 86780; 87086

== ENCOUNTER 2022-04-06 14:42 | Outpatient (REF) | payer BC, SELFPAY | END 2022-04-06 14:43 | disposition home or self-care (01) | LOC: LBN 14:42 | PROVIDERS: PCP Nurse Practitioner Family; Visit Provider Advanced Practice Midwife | DX: Z34.92 Encounter for supervision of normal pregnancy, unspecified, second trimester (principal) | CPT/HCPCS: 87480; 87510; 87660 ==

== ENCOUNTER 2022-05-04 01:10 | Outpatient (CLI) | payer BC, SELFPAY ==
--- OUTSIDE RECORDS SUMMARY | 2022-05-04 01:11 | XMS_ITS | Continuity of Care Document ---
:1980 Author Organization [facility] Address [address] [place] [address] Care Team Providers Name Role Phone Fito Harris Lottie Primary Care Physician Encounter NCTY_UT Date(s): 03/29/22 - 03/29/[address] [facility] [address] [place] [address] Discharge Disposition: Home or Self Care Attending Physician: Marin Menezes MD Admitting Physician: Marin Menezes MD Referring Physician: Marin Menezes MD Allergies, Adverse Reactions, Alerts Substance Reaction Severity Status LATEX Unknown Active sulfamethoxazole-trimethoprim Urticaria Moderate Ac tive Assessment and Plan Future AppointmentsDiagnostic Tests PendingInsulin [facility] 03/29/22Homocysteine, Total, P HERRON 03/29/22Vitamin D, 25-OH Total UV 03/29/22 Immunizations Given and Recorded Vaccine Date Status Refusal Reason SARS-CoV-2 (COVID-19) mRNA-1273 vaccine 10/04/20 Recorded SARS-CoV-2 (COVID-19) mRNA-1273 vaccine 09/09/20 Recorded tetanus/diphth/pertuss (Tdap) adult/adol 11/20/18 Recorde d tetanus/diphth/pertuss (Tdap) adult/adol 07/08/08 Recorde d tetanus-diphth toxoids (Td) adult/adol 05/20/98 Recorded Not Given Vaccine Date Status Refusal Reason influenza, unspecified formulation1 11/27/21 Not Given Patient Refuses 1Result Comment: Patient declined - 04/29/2020 Medications cephalexin 500 mg oral capsule 500 mg = 1 cap, Oral, BID Start Date: 11/27/21 Status: OrderedmetroNIDAZOLE 500 mg oral tablet 500 mg = 1 tab, Oral, BID Start Date: 11/27/21 Status: Orderedmultivitamin adult, oral tablet 1 tab, Oral, Daily Start Date: 11/27/21 Status: OrderedVyvanse 20 mg oral capsule 20 mg = 1 cap, Oral, every morning, 0 Refill(s) Start Date: 11/27/21 Status: Ordered Problem List No Known Problems Procedures Procedure Date Related Diagnosis Body Site Status Umbilical Herniorrhaphy with Prolene 11/14/10 Completed Mesh Laparoscopic ablation of pelvic 01/17/00 Completed endometriosis Results Laboratory List Name Date C-Reactive Protein High Sensitivity (CRP) 03/29/22 Comprehensive Metabolic Panel (CMP) 03/29/22 Ferritin 03/29/22 Folate Level 03/29/22 Free T4 03/29/22 Hemoglobin A1c 03/29/22 Iron Level and TIBC 03/29/22 Lipid Panel 03/29/22 T3, Free [facility] 03/29/22 Vitamin B12 Level 03/29/22 Most recent to oldest [Reference Range]: 1 BUN [7-18 mg/dL] 14 mg/dL (03/29/22 10:06 AM) Cholesterol Total [50-200 mg/dL] 216 mg/dL *HI* (03/29/22 10:06 AM) LDL [0-130 mg/dL] 118 mg/dL (03/29/22 10:06 AM) Glucose Level [74-106 mg/dL] 82 mg/dL (03/29/22 10:06 AM) Potassium Level [3.5-5.1 mmol/L] 4.3 mmol/L (03/29/22 10:06 AM) HDL [40-60 mg/dL] 83 mg/dL *HI* (03/29/22 10:06 AM) T4 Free [0.76-1.46 ng/dL] 0.84 ng/dL (03/29/22 10:06 AM) AST [15-37 unit/L] 16 unit/L (03/29/22 10:06 AM) ALT [14-59 unit/L] 26 unit/L (03/29/22 10:06 AM) Sodium Level [136-145 mmol/L] 135 mmol/L *LOW* (03/29/22 10:06 AM) Folate Level [8.6-58.9 ng/mL] 55.7 ng/mL (03/29/22: AM) Triglycerides [0-150 mg/dL] 74 mg/dL (03/29/22 AM) Calcium Level [8.5-10.1 mg/dL] 8.1 mg/dL *LOW* (03/29/22 AM) Albumin Level [3.4-5.0 g/dL] 3.0 g/dL *LOW* (03/29/22 AM) Protein Total [6.4-8.2 g/dL] 6.4 g/dL (03/29/22 AM) Iron Sat [20-55 %] 16 % *LOW* (03/29/22 AM) Bilirubin Total [0.2-1.0 mg/dL] 0.4 mg/dL (03/29/22 AM) B12 Level [193-986 pg/mL] 524 pg/mL (03/29/22 AM) Alk Phos [46-146 unit/L] 49 unit/L (03/29/22 AM) Ferritin Level [8-252 ng/mL] 22 ng/mL (03/29/22 AM) CO2 [21-32 mmol/L] 25 mmol/L (03/29/22 AM) TIBC [250-450 mcg/dL] 389 mcg/dL (03/29/22: AM) Iron [50-170 mcg/dL] 62 mcg/dL (03/29/22 AM) eGFR Non-AA [>=60] 95 (03/29/22: AM) eGFR AA [>=60] 95 (03/29/22: AM) Hemoglobin A1c [4.0-6.0 %] 5.0 % (03/29/22 AM) Chloride Level [98-107 mmol/L] 102 mmol/L (03/29/22 AM) CRP High Sens [0.00-3.00 mg/L] 2.20 mg/L (03/29/22: AM) Creatinine Level [0.55-1.02 mg/dL] 0.80 mg/dL (11/10/22 10:06 AM) T3, Free [facility] [2.8-5.3 pg/mL] 3.0 pg/mL 1 *NA* (03/29/22 10:06 AM) 1Result Comment: Test performed [place] [address] Social History Social History Type Response Sex Female Patient Care team information Care Team PersonnelName: Fito Harris DYED YARN OPERATOR Position: Physician Member Role: Primary Care Physician Address: Address: [address]
[2022-05-04 16:17] LABS: HCT 34.4 % (36.0-46.0); HGB 11.4 g/dL (11.2-15.7); MCH 30.5 pg (27.0-33.0); MCHC 33.1 % (32.0-36.0); MCV 92 fL (80-95); MPV 11.8 fL (8.0-11.0); Platelet Count 140 10^3/uL (130-400); RBC 3.74 10^6/uL (3.93-5.22); RDW 13.2 % (11.7-14.6); RDW-SD 44.6 fL; WBC 11.69 10^3/uL (4.4-10.8)
[2022-05-04 16:20] LABS: Glucose,1 Hr (Glucola) 162 mg/dL (80-140)
== END 2022-05-04 01:11 | disposition home or self-care (01) ==
LOC: LBO 01:10
PROVIDERS: PCP Nurse Practitioner Family; Visit Provider Advanced Practice Midwife
DX: Z34.92 Encounter for supervision of normal pregnancy, unspecified, second trimester (principal); Z3A.26 26 weeks gestation of pregnancy
CPT/HCPCS: 36415; 82950; 85027

== ENCOUNTER 2022-05-17 02:10 | Outpatient (CLI) | payer BC, SELFPAY ==
[2022-05-17 10:01] LABS: Glucose 1 Hour 187 mg/dL
[2022-05-17 12:06] LABS: Glucose 3 Hour 99 mg/dL
--- NOTE | 2022-05-28 10:43 | W.DIABETESNO ---
Date of service: 05/28/22 Time of Service: 10:44 Diabetes Note Reason for Visit: GDM NOTE: Met with Lizy at [facility] today. She was dx with GDM last week and comes in today with QID finger sticks for last week. All values wnl. Reviewed diet principles to manage GDM. Provided written materials and contact information. WIll be available prn. Time Spent in Nutritional Counseling and Treatment: 10
== END 2022-05-17 02:11 | disposition home or self-care (01) ==
LOC: LBO 02:10
PROVIDERS: PCP Nurse Practitioner Family; Visit Provider Advanced Practice Midwife
DX: Z34.93 Encounter for supervision of normal pregnancy, unspecified, third trimester (principal)
CPT/HCPCS: 36415; 82951

== ENCOUNTER 2022-07-10 07:20 | Outpatient (CLI) | payer BC, SELFPAY ==
[2022-07-10 08:59] VITALS: BP 117/67; PULSE 73; TEMP 36.9
[2022-07-10 09:09] VITALS: BP 117/67; PULSE 73
--- NOTE | 2022-07-10 09:51 | W.OBNST ---
Date of service: 07/10/22 Time of Service: 09:51 NST Evaluation Reason for NST Reasons for Nonstress Test: ADVANCED MATERNAL AGE Gestational Age Gestational Age in Weeks and Days: 35 Weeks and 6Days Test and Monitor Explained Test/Monitor Explained: Test Explained and Monitor Explained Vital Signs Blood Pressure: 117/67 Pulse: 73 Temperature: 98.4 F NST Information Date on Monitor: 07/10/22 Time on Monitor: 09:02 Date off Monitor: 07/10/22 Time off Monitor: 09:44 Total Time on Monitor: 42 NST Interventions: PO Hydration NST Evaluation Patient States Movement: Present FHR Baseline: 145 Variability: Moderate 6-25 bpm Accelerations: 15x15 Decelerations: None NST Results: Reactive Note N/A NST Note Note: Category 1, reactive nonstress test NST Reviewed and Verified by: Lisa Gómez
[2022-07-10 09:52] VITALS: BP 117/67; PULSE 73; TEMP 36.9
== END 2022-07-10 09:44 | disposition home or self-care (01) ==
LOC: BCD 07:22 → OBS 08:57
PROVIDERS: PCP Nurse Practitioner Family; Visit Provider Obstetrics & Gynecology
DX: O09.523 Supervision of elderly multigravida, third trimester (principal); Z3A.35 35 weeks gestation of pregnancy
CPT/HCPCS: 59025

== ENCOUNTER 2022-07-12 17:50 | Inpatient (IN) | payer BC, SELFPAY ==
[2022-07-12 17:54] VITALS: BP 149/85; PULSE 116; RESP 18; TEMP 36.1; O2SAT 98
--- NOTE | 2022-07-12 18:00 | DI.RAD_ITS ---
Exam(s) XR TIB/FIB RT EXAM: XR TIB/FIB RT CLINICAL HISTORY: pain mid shaft post fall. TECHNIQUE: 2D digital imaging was performed. Two views. COMPARISON: No exams were available for comparison FINDINGS: BONES: There is a spiral fracture through the distal 3rd of the tibia with mild displacement. There is an oblique fracture through the proximal fibula with mild displacement. No bony destructive lesio n is seen. Visualized portion of knee and ankle joints are unremarkable however the ankle is not incl uded on the lateral view.. SOFT TISSUE: Swelling IMPRESSION: Proximal fibular fracture. Distal tibial fracture. DATA REPOSITORY: RADIATION DOSE DELIVERED:
--- NOTE | 2022-07-12 19:14 | DI.VRAD_ITS ---
PROCEDURE INFORMATION: Exam: XR Right Tibia and Fibula Exam date and time: 07/12/2022 6:42 PM Age: 42 years old Clinical indication: Injury or trauma; Fall; Blunt trauma; Lower leg; Right TECHNIQUE: Imaging protocol: Radiologic exam of the right tibia and fibula. Views: 2 views. COMPARISON: No relevant prior studies available. FINDINGS: Bones/joints: Spiral fracture of the right tibia distal diametaphyseal region. Mild displacement. There is also a proximal fibular displaced fracture at the fibular neck region. This is an oblique fracture. Distal fibular shaft is anteriorly displaced 7 mm. Proximal tibial shaft is anterior displaced 7 mm. Proximal tibial shaft is medially displaced 5 mm. Soft tissues: Soft tissue swelling. No foreign body. IMPRESSION: Tibia and fibular fractures as detailed above. Mild displacement. Dictated and Authenticated by: Percy Rubin MD. Ordering:ANASTASIYA Farnsworth MD
--- NOTE | 2022-07-12 19:27 | W.ORTHOCONSU ---
Assessment and Plan Assessment and plan (1) Closed fracture of right tibia and fibula: Status: Acute Assessment and plan: 42 year old female s/p fall with Right tibia & fibula shaft fxs; 36 weeks Discussed with hospitalist, OB, and [facility] teams Medical admission & optimization for surgery tomorrow: Right tibia intramedullary nailing NPO post midnight, IVF, NWB RLE, elevation, splint Patient met, evaluated, and plan discussed. Slip and fall twisting injury right leg last night. No pre-existing leg problems. Some pre-existing in the past bilateral foot neuropathy versus tendinitis that has not been completely worked up. Comfortable at rest. Difficulty with repositioning. No significant numbness or tingling pressure or pain. Right splint opened up and leg evaluated. Compartments all compressible. Moderate central anterior tibial bruise. Skin intact. Demonstrate intact motor EHL and able to wiggle toes. No significant pain with passive stretch. Not compartment syndrome or open fracture. Brisk cap refill distally. Reviewed the options for treatment tib-fib fractures relatively well aligned in adult including operative versus nonoperative management. Decision to proceed with surgery today right tibia intramedullary nailing with careful coordination between [facility] and OB teams The risks, benefits, and alternatives were thoroughly discussed. Patient was counseled regarding pain management, expected postoperative course, and recovery timeline. All questions were answered. Informed consent was obtained. Agree and understand treatment plan. [facility] All Active Problems (Updated 07/12/22 @ 19:30 by Tejas Muller MD) Closed fracture of right tibia and fibula (Acute 07/12/22) Swelling of left foot (Acute) SUSSY (stress urinary incontinence, female) (Acute) Gestational diabetes mellitus (GDM) affecting (Acute) 3 hour test F96, 1 h 187, 2h 150, 3h 99 Anxiety (Chronic) Family history of thyroid disease in mother (Acute) Advanced maternal age in multigravida (Acute) (Acute) Medical History Yeast vaginitis Surgical History Repair of umbilical hernia 2011 [facility] S/P laparoscopy Family History Father Diabetes Hypertension Mother Thyroid disorder Osteoporosis Social History Smoking/Tobacco Use Status: Never Smoking risk assessment performed?: Yes Alcohol Intake: never Drug use: Never Substance use type: does not use 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 Date GA/Weeks # Preg Succ Route Wgt Sex Labor Lgth Anesthesia Location Prov Complic 01/12/05 39 No Yes vaginal 6 lb 8 oz Female 6hr [place], [place] Delivery Date: 01/12/05 Last Updated by: Ashlyn Blake CNM SROM X 12 hours then augmentation with delivery 6 hours later. Results Last Vital Signs Temp 97.0 F L 07/12/22 17:54 Pulse 116 H 07/12/22 17:54 Resp 18 07/12/22 17:54 BP 149/85 H 07/12/22 17:54 Pulse Ox 98 07/12/22 17:54 Labs 07/12/22 20:12 07/12/22 20:12
--- NOTE | 2022-07-12 20:02 | OBCE_ITS ---
Date of service: 07/12/22 Time of Service: 20:02 Assessment and Plan Assessment and plan (1) Closed fracture of right tibia and fibula: Status: Acute Assessment and plan: I spoke with Dr. Muller who plans to proceed with surgery in the morning. I would normally recommend prophylactic Lovenox in a patient who anticipate being immobile. However the hope is to provide vaginal anesthesia and it would be best not to dose her Lovenox until 12 hours after her surgery. If the patient requires general anesthesia then she will be monitored for uterine contractions and heart rate during her surgery. (2) : Status: Acute Assessment and plan: Patient was scheduled tomorrow for a OB ultrasound to assess amniotic fluid index and estimated weight. We will cancel that and reschedule for later in the day or as an outpatient next week. Assuming that she does not require general anesthesia I did recommend a 1 hour monitoring postop of the heart rate and uterine contractions. (3) Advanced maternal age in multigravida: Status: Acute Assessment and plan: We will plan to continue her twice weekly visits including twice weekly NSTs in the postop period History of Present Illness History of Present Illness Chief Complaint: closed right tibia and fibula fracture, 36w0d Narrative: Patient is a 42-year-old G2, P1 female currently 36 weeks 0 days EGA with an estimated date of delivery of 08/09/2021. Patient was walking her dogs this evening when she slipped on ice and twisted her leg then proceeded to fall on he r buttocks. She did not strike her abdomen or have any vaginal bleeding or loss of amniotic fluid. She was driven to the [facility] ED by her neighbor and underwent xray of her tender, swollen R lower extremity with showed a spiral fracture of the distal right tibia and a proximal right fibula with displacement at the fibular neck region. Radiology interpretation was that there was no soft tissue swelling proximity to fractures. Patient has been admitted to the orthopedic service with OB consultation regarding management of related issues. Patient's course 1. AMA >40; Referred to [facility] [place] (offered and declines amniocentesis) - ASA recommended daily 1a. MFM recommendations for women 40 or greater: a. Weekly NST with GIANA, or twice weekly NST or Weekly BPP b. Induction between 39 and 39.6 c. If IOL declined, 2X weekly NST and GIANA d. US 34 week ____due to increased risk for SGA or LGA -ASA 2. cfDNA and CF testing being done, declines SMA. cfDNA low prob x5 male, CF negative 3. ADHD no meds 4. Has umbilical hernia, no issues during this 5. Anxiety - citalopram 10 mg PO daily- stopped taking 02/2022 6. GDM, diet controlled: (3 hr GTT, F 96, 1h 187, 2h 150, 3h 99). Finger sticks, Dietary Consults Consult date: 07/12/22 Requesting physician: Tejas Muller Review of Systems Constitutional Constitutional: Reports body ache(s) (Right lower extremity tender but not excruciating per patient report) Cardiovascular Cardiovascular: Reports system reviewed and no additional complaints, except as documented (swelling of extremities during . Negative LE Doppler 06/28/22.) and Reports claudication Gastrointestinal Gastrointestinal: Reports system reviewed and no additional complaints, except as documented Genitourinary Comments: No uterine contractions, no loss of fluid, no vaginal bleeding. Musculoskeletal Comments: Unable to weight-bear on right lower extremity. Integumentary/Breasts Skin/Breast: Reports system reviewed and no additional complaints, except as documented Neurologic Comments: Sensation motion are intact right lower extremity Psychiatric Psychiatric: Reports system reviewed and no additional complaints, except as documented Comments: Patient has some concerns about undergoing surgery at this stage of her . I provided reassurance about the safety of the anesthesia method and the importance of properly repairing her fracture. [facility] All Active Problems (Updated 07/12/22 @ 19:30 by Tejas Muller MD) Closed fracture of right tibia and fibula (Acute 07/12/22) Swelling of left foot (Acute) SUSSY (stress urinary incontinence, female) (Acute) Gestational diabetes mellitus (GDM) affecting (Acute) 3 hour test F96, 1 h 187, 2h 150, 3h 99 Anxiety (Chronic) Family history of thyroid disease in mother (Acute) Advanced maternal age in multigravida (Acute) (Acute) Medical History Yeast vaginitis Surgical History Repair of umbilical hernia 2011 [facility] S/P laparoscopy Family History Father Diabetes Hypertension Mother Thyroid disorder Osteoporosis Social History Smoking/Tobacco Use Status: Never Smoking risk assessment performed?: Yes Alcohol Intake: never 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 Date GA/Weeks # Preg Succ Route Wgt Sex Labor Lgth Anesth esia Location Prov Complic 01/12/05 39 No Yes vaginal 6 lb 8 oz Female 6hr [place] Delivery Date: 01/12/05 Last Updated by: Ashlyn Blake CNM SROM X 12 hours then augmentation with delivery 6 hours later. Exam Narrative Exam Narrative: Patient sitting in wheelchair. No acute distress. Const Nutritional Appearance: average body habitus Orientation: alert, awake and oriented x3 Resp Effort & Inspection: normal respiratory effort GI Palpation: soft (No focal abdominal tenderness) and other (Gravid. heart tones auscultated by Doppler in the ER) Other: Vaginal exam deferred. Patient denies uterine contractions none palpated Back/Spine/Pelvis Back: no CVA tenderness Skin General skin exam: no rashes or lesions noted Trauma: no lacerations or abrasions Extrem Right lower extremity: normal capillary refill and edema Psych Appearance: grossly normal Mental Status: mental status grossly normal Speech and Movement: speech and movement normal Mood: congruent mood and anxious mood Affect: normal affect Attitude: cooperative Thought Process: normal Thought Content: normal Insight: insight good Judgment: judgment good Results Last Vital Signs Temp 97.0 F L 07/12/22 17:54 Pulse 116 H 07/12/22 17:54 Resp 18 07/12/22 17:54 BP 149/85 H 07/12/22 17:54 Pulse Ox 98 07/12/22 17:54 Labs 07/12/22 19:50 07/12/22 19:50 Imaging Chest x-ray: report reviewed and image reviewed
[2022-07-12] MEDS: MORPHine 10 MG/ML VIAL 2 MG IVP (20:18)
[2022-07-12 20:22] LABS: Abs Immature Grans 0.06 10^3/uL (0.0-0.06); Absolute Basophil Count 0.02 10^3/uL (0.0-0.2); Absolute Eosinophil Count 0.03 10^3/uL (0.0-0.7); Absolute Lymphocyte Count 1.13 10^3/uL (1.2-3.4); Absolute Monocyte Count 0.65 10^3/uL (0.1-0.8); Basophils % 0.2; Eosinophils % 0.3; HCT 33.4 % (36.0-46.0); Immature Grans % 0.6; Lymphocytes % 11.7; MCH 28.9 pg (27.0-33.0); MCHC 32.9 % (32.0-36.0); MCV 88 fL (80-95); MPV 12.7 fL (8.0-11.0); Monocytes % 6.7; Neutrophils % 80.5; Platelet Count 127 10^3/uL (130-400); RDW-SD 41.8 fL; WBC 9.69 10^3/uL (4.4-10.8)
[2022-07-12 20:39] LABS: ALT 18 U/L (14-59); AST 12 U/L (15-37); Albumin 2.6 g/dL (3.4-5.0); Alkaline Phosphatase 113 U/L (46-116); Anion Gap 6.2 mmol/L (3-11); BUN 13 mg/dL (7-18); Bilirubin, Total 0.3 mg/dL (0.2-1.0); CO2 22.8 mmol/L (21.0-32.0); CREATININE 0.9 mg/dL (0.55-1.02); Calcium 8.1 mg/dL (8.5-10.1); Chloride 105 mmol/L (98-107); Estimated GFR 81.86 (mL/min/1.73m2); Glucose 127 mg/dL (74-106); Potassium 3.5 mmol/L (3.5-5.1); Sodium 134 mmol/L (136-145); Total Protein 6.2 g/dL (6.4-8.2)
[2022-07-12] MEDS: MORPHine 4 MG/ML SYR (20:52)
[2022-07-12 21:24] VITALS: BP 145/83; PULSE 83; TEMP 36.3; O2SAT 96
[2022-07-12 21:31] LABS: Source Nasal/Nares
--- NOTE | 2022-07-12 21:35 | HPE_ITS ---
Date of service: 07/12/22 Time of Service: 21:35 Assessment and Plan Assessment and plan (1) Closed fracture of right tibia and fibula: Status: Acute Assessment and plan: Splint is applied to the right lower extremity. Distal sensation and circulation is intact at this time. Management of the fracture will be done by orthopedics tomorrow. She can be fed tonight and will be n.p.o. after midnight. (2) Gestational diabetes mellitus (GDM) affecting : Status: Acute Assessment and plan: Blood sugar will be tested 4 times a day. (3) Advanced maternal age in multigravida: Status: Acute Assessment and plan: She has been seen by obstetrics and they will check her again tomorrow. There are no obstetric complications at this time. She normally takes aspirin but this will be restarted tomorrow if okay with orthopedics. History of Present Illness History of Present Illness Chief Complaint: Pain, right lower extremity Narrative: This 42-year-old female is here in the emergency department because of right lower extremity pain. She is currently 36 weeks with her second . She is 2 para 1 with 1 living child who is 17 years old. She was walking her dogs a short while ago and went to turn and as she was going down a small incline she slipped and fell landing on her right leg. She twisted it. She also landed on her buttocks. She did not land on her abdomen and did not hit her head or chest. She called out for help and someone came to help her and brought her to the hospital. She was evaluated in the emergency department was found to have a distal shaft fracture of her right tibia and a proximal rig ht fibular fracture. She has been seen by obstetrics who felt that she should be admitted to the hospital service. Orthopedics was consulted and is planning on operating on her tomorrow. She has no chronic medical problems except there is a record of urinary incontinence and attention deficit disorder. Only medicine she is on currently is aspirin because of her advanced maternal age. She has no allergies. She does not use tobacco. She said she used alcohol rarely before she got . She does have a history of gestational diabetes and been monitoring her blood sugars and they have been generally well controlled with sugars between 72 and 143. Fasting sugars are usually between 7 0 and 90 and blood sugars later in the day are often 110 and 130. It sounds like she is quite presybeterian about checking her sugars regularly 4 times a day. She said she had a wrist fracture when she was a child. She has had surgeries of laparoscopic copies that was for endometriosis and repair of an umbilical hernia. She thinks umbilical hernia is recurring at this time is not causing any significant discomfort. She states she has had the COVID vaccines but has not had a flu shot this season. Review of Systems Constitutional Constitutional: Denies chills, Denies fever(s), Denies increased appetite, Denies weakness and Denies weight loss Cardiovascular Cardiovascular: Denies chest pain, Denies rapid heart rate, Reports leg edema and Denies dyspnea Respiratory Respiratory: Denies cough and Denies dyspnea Gastrointestinal Gastrointestinal: Denies abdominal pain, Denies diarrhea, Denies nausea and Denies vomiting Genitourinary Genitourinary: Reports amenorrhea, Denies difficulty voiding and Denies dysuria Neurologic Neurologic: Denies weakness [facility] All Active Problems (Updated 07/12/22 @ 19:30 by Tejas Muller MD) Closed fracture of right tibia and fibula (Acute 07/12/22) Swelling of left foot (Acute) SUSSY (stress urinary incontinence, female) (Acute) Gestational diabetes mellitus (GDM) affecting (Acute) 3 hour test F96, 1 h 187, 2h 150, 3h 99 Anxiety (Chronic) Family history of thyroid disease in mother (Acute) Advanced maternal age in multigravida (Acute) (Acute) Medical History Yeast vaginitis Surgical History Repair of umbilical hernia 2011 [facility] S/P laparoscopy Family History Father Diabetes Hypertension Mother Thyroid disorder Osteoporosis Social History Smoking/Tobacco Use Status: Never Smoking risk assessment performed?: Yes Alcohol Intake: never 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 Date GA/Weeks # Preg Succ Route Wgt Sex Labor Lgth Anesth esia Location Prov Complic 01/12/05 39 No Yes vaginal 2948.35 g Female 6hr [place] Delivery Date: 01/12/05 Last Updated by: Ashlyn Blake CNM SROM X 12 hours then augmentation with delivery 6 hours later. Meds Allergies and Home Medications Allergies Allergy/AdvReac Type Severity Reaction Status Date / Time No Known Allergies Allergy Verified 07/12/22 17:56 Home Medications Medication Instructions Recorded Confirmed Type prenat.vits,diana,ybv-imdf-btvrr 1 tab PO DAILY 12/06/21 07/12/22 History aspirin 81 mg capsule 81 mg PO DAILY 02/16/22 07/12/22 History ondansetron HCl 4 mg tablet 4 mg PO Q6H PRN nausea and 03/03/22 07/12/22 Rx vomiting #30 tabs cetirizine 10 mg capsule (Zyrtec) 10 mg PO DAILY PRN 03/16/22 07/12/22 History alcohol swabs (Alcohol Pads) 1 pad topical .4 times daily #200 05/17/22 07/12/22 Rx ea blood sugar diagnostic (FreeStyle #100 ea 05/17/22 07/12/22 Rx Lite Strips) blood-glucose meter (FreeStyle #1 ea 05/17/22 07/12/22 Rx Lite Meter kit) lancets 28 gauge (FreeStyle #100 ea 05/17/22 07/12/22 Rx Lancets) Exam Const General: cooperative, healthy appearing, comfortable, no acute distress, not ill appearing and well hydrated Nutritional Appearance: average body habitus and well nourished Orientation: alert, awake and oriented x3 Neck Neck: normal visual inspection, no lymphadenopathy and no JVD Resp Auscultation: clear to auscultation bilaterally, no rales, no rhonchi and no wheezes Cardio Rate: regular rate Rhythm: regular rhythm Heart Sounds: S1 normal, S2 normal, no gallops and no murmurs GI Palpation: soft and no hepatosplenomegaly Other: with Est weight of 2800g. No palp contractions. No uterine tenderness. Extrem General: no clubbing, no cyanosis and no edema Other: Splint is on the right lower extremity from the proximal lower leg to the right foot. There is intact sensation and warmth to the toes of the right foot. Splint is not removed. Results Labs 07/12/22 20:12 07/12/22 20:12 Labs: Laboratory Results - last 24 hr 07/12/22 07/12/22 07/12/22 20:12 20:12 21:15 WBC 9.69 RBC 3.80 L Hgb 11.0 L Hct 33.4 L MCV 88 MCH 28.9 MCHC 32.9 RDW 13.0 Plt Count 127 L MPV 12.7 H Immature Gran % 0.6 Neutrophils % 80.5 Lymphocytes % 11.7 Monocytes % 6.7 Eosinophils % 0.3 Basophils % 0.2 Nucleated RBC % 0.0 Absolute Neutrophils 7.80 H Absolute Lymphocytes 1.13 L Absolute Monocytes 0.65 Absolute Eosinophils 0.03 Absolute Basophils 0.02 Sodium 134 L Potassium 3.5 Chloride 105 Carbon Dioxide 22.8 Anion Gap 6.2 BUN 13 Creatinine 0.9 Est GFR (CKD-EPI 2020) 81.86 Glucose 127 H Calcium 8.1 L Total Bilirubin 0.3 AST 12 L ALT 18 Alkaline Phosphatase 113 Total Protein 6.2 L Albumin 2.6 L COVID-19 Source Nasal/Nares Last Vital Signs Temp 36.3 C L 07/12/22 21:24 Pulse 83 07/12/22 21:24 Resp 18 07/12/22 17:54 BP 145/83 H 07/12/22 21:24 Pulse Ox 96 07/12/22 21:24 Time Spent Time spent with Patient: 40-54 minutes Time was spent: preparing to see the patient(eg.review tests), obtaining and/or reviewing separately otained hiistory, ordering medications,tests, procedures and referring, communicating with other health patient care nursing assistant
[2022-07-12 21:42] VITALS: BP 127/89; PULSE 82; RESP 16; TEMP 37.1; O2SAT 98
[2022-07-12 22:14] LABS: COVID-19 PCR Negative (Negative)
[2022-07-12 22:20] VITALS: BP 124/85; PULSE 84; RESP 20; TEMP 36.7
--- NOTE | 2022-07-12 23:01 | ED.GENADUL_ITS ---
Discharge Plan Disposition Patient Disposition: Admit to [facility] Condition: Stable Discharge Details Clinical Impression: , Closed fracture of right tibia and fibula Admit Date/Time: 07/12/22 21:07 Admit Provider: Lisa Gómez Attending Provider: Lisa Gómez Primary Care Provider: Fito Harris ED Provider: Daja Haynes Discharge Data Discharge Date/Time-TO BE ENTERED AT DEPARTURE: 07/13/22 14:43 Medical Decision Making This 42-year-old female who presents 36 weeks has trauma noted to her right leg, she is neurovascularly intact, she is tearful She has no tenderness to abdomen, heart rate is monitored for several minutes and ranges from 1 35-1 45 No tenderness to CVA region, patient denies any vaginal bleeding No signs of head trauma Has a notable spiral fracture to her right tibia mildly displaced with right fibula fracture proximally, discussed with Dr. Muller, patient will need surgery He will take patient to the OR Dr. Therese Bocanegra will consult and actually evaluates the patient in the emergency department and agrees with plan Patient has been alert and oriented, we reviewed risk associated with radiation and benefit of performing x-ray Also patient is in significant pain, will lower morphine for discomfort and Tylenol Medical Records Medical records reviewed: Yes I reviewed the patient's medical records. Lab Data Lab results reviewed: Yes I reviewed the patient's lab results. HPI General Date/Time Provider Initiated Documentation: 07/12/22 17:56 . HPI Narrative: This 42-year-old female presents with report of slip and fall while walking her dogs, on ice twisting right ankle pain of right knee. Landed on buttocks. 36 weeks . Denies any additional injuries, vaginal bleeding, pelvic pain, cramping. She has been otherwise healthy, she is G2, P1. The event occurred approximately an hour prior to arrival. She denies any head injury or loss of consciousness. Pain is localized to her right lower leg. She has not been able to place weight on the leg since the event occurred. Related Data Home Medications Medication Instructions Recorded Confirmed prenat.vits,diana,[id number] 1 tab PO DAILY 12/06/21 07/12/22 aspirin 81 mg capsule 81 mg PO DAILY 02/16/22 07/12/22 ondansetron HCl 4 mg tablet 4 mg PO Q6H PRN nausea and 03/03/22 07/12/22 vomiting #30 tabs cetirizine 10 mg capsule (Zyrtec) 10 mg PO DAILY PRN 03/16/22 07/12/22 alcohol swabs (Alcohol Pads) 1 pad topical .4 times daily #200 05/17/22 07/12/22 ea blood sugar diagnostic (FreeStyle #100 ea 05/17/22 07/12/22 Lite Strips) blood-glucose meter (FreeStyle #1 ea 05/17/22 07/12/22 Lite Meter kit) lancets 28 gauge (FreeStyle #100 ea 05/17/22 07/12/22 Lancets) enoxaparin 40 mg/0.4 mL 40 mg (0.4 mL) subcut DAILY #4 mL 07/13/22 subcutaneous syringe (Lovenox) Previous Rx's Medication Instructions Recorded ondansetron HCl 4 mg tablet 4 mg PO Q6H PRN nausea and 03/03/22 vomiting #30 tabs alcohol swabs (Alcohol Pads) 1 pad topical .4 times daily #200 05/17/22 ea blood sugar diagnostic (FreeStyle #100 ea 05/17/22 Lite Strips) blood-glucose meter (FreeStyle #1 ea 05/17/22 Lite Meter kit) lancets 28 gauge (FreeStyle #100 ea 05/17/22 Lancets) enoxaparin 40 mg/0.4 mL 40 mg (0.4 mL) subcut DAILY #4 mL 07/13/22 subcutaneous syringe (Lovenox) Allergies Allergy/AdvReac Type Severity Reaction Status Date / Time No Known Allergies Allergy Verified 07/12/22 17:56 General Stated Complaint: Orthopedic CHE: 4 PFSH All Active Problems (Updated 07/14/22 @ 08:58 by AFSANEH Mondragon) Closed fracture of right tibia and fibula (Acute 07/12/22) Swelling of left foot (Acute) SUSSY (stress urinary incontinence, female) (Acute) Gestational diabetes mellitus (GDM) affecting (Acute) 3 hour test F96, 1 h 187, 2h 150, 3h 99 Anxiety (Chronic) Family history of thyroid disease in mother (Acute) Advanced maternal age in multigravida (Acute) (Acute) Medical History Yeast vaginitis Surgical History Repair of umbilical hernia 2012 [facility] S/P laparoscopy Family History Father Diabetes Hypertension Mother Thyroid disorder Osteoporosis Social History Smoking/Tobacco Use Status: Never Smoking risk assessment performed?: Yes Alcohol Intake: never Drug use: Never Substance use type: does not use 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 Date GA/Weeks # Preg Succ Route Wgt Sex Labor Lgth Anesth esia Location Prov [facility] 01/12/05 39 No Yes vaginal 2948.35 g Female 6hr [place], [place] Delivery Date: 01/12/05 Last Updated by: Ashlyn Blake CNM SROM X 12 hours then augmentation with delivery 6 hours later. Exam Const General: cooperative and anxious HENMT Head: normal to inspection Mouth: oral mucosae normal Eyes Pupils: PERRL Resp Effort & Inspection: normal respiratory effort Auscultation: clear to auscultation bilaterally Cardio Rate: regular rate Rhythm: regular rhythm GI Inspection: normal to inspection Other: Nontender abdominal exam Skin General skin exam: no rashes or lesions noted Neuro General: patient alert Extrem Other: Tenderness with palpation to midshaft tib-fib, tenderness to right knee, no tenderness right foot, neurovascularly intact Course Vital Signs Vital signs: Vital Signs Temperature 36.1 C L 07/12/22 17:54 Pulse 116 H 07/12/22 17:54 Respiratory Rate 18 07/12/22 17:54 Blood Pressure 149/85 H 07/12/22 17:54 Pulse Oximetry 98 07/12/22 17:54 Temperature 36.3 C L 07/12/22 21:24 Temperature Source Tympanic 07/12/22 21:24 Pulse 83 07/12/22 21:24 Respiratory Rate 18 07/12/22 17:54 Respiratory Effort Normal, Non-Labored 07/12/22 17:55 Blood Pressure 145/83 H 07/12/22 21:24 Pulse Oximetry 96 07/12/22 21:24 Oxygen Delivery Method Room Air 07/12/22 21:24 Oxygen Flow Rate 0 07/12/22 21:24 Pain Level 1 07/12/22 21:24 Procedures Orthopedic Splinting/Casting Injury #1: Side: right Lower Extremity Injury Location: lower leg Lower Extremity Immobilizer: posterior splint and stirrup splint Additional Comments: Neurovascularly intact pre and postprocedure discussed
[2022-07-12 23:10] LABS: Bilirubin Negative (Negative); Blood Negative (Negative); Clarity Sl Cloudy (Clear); Glucose Negative (Negative); Ketones Negative (Negative); Leukocyte Esterase Negative (Negative); Nitrite Negative (Negative); Specific Gravity >= 1.030 (1.005-1.025); Urobilinogen 0.2 mg/dL (Up to 0.2)
[2022-07-12 23:12] LABS: Bacteria Rare HPF (Negative); C & S Indicated? No; Casts Negative LPF (Negative); Crystals Negative HPF (Negative); Epithelial Cells Rare HPF (Negative); Mucus Negative (Negative); RBC Negative HPF (0-2); WBC Negative HPF (0-5)
[2022-07-12] MEDS: MORPHine 2 MG/ML SYR IVP (23:23)
[2022-07-12] MEDS: Normal Saline Flush 10 ML SYR IVP (23:25)
[2022-07-12] MEDS: Normal Saline 1,000 ML 200 ML IV (23:59)
[2022-07-13] VITALS (16 sets, daily range): BP systolic 114–142; BP diastolic 60–80; PULSE 72–95; RESP 12–18; TEMP 36.6–37.2; O2SAT 98–99; BMI 30.9
[2022-07-13] MEDS: MORPHine 2 MG/ML SYR IVP ×2 (01:20→03:10)
[2022-07-13] MEDS: Normal Saline Flush 10 ML SYR IVP ×2 (01:25→05:40)
[2022-07-13] MEDS: MORPHine 2 MG/ML SYR 1 MG IVP (03:43)
[2022-07-13] MEDS: MORPHine 2 MG/ML SYR 3 MG IVP ×2 (05:39→20:50)
--- NOTE | 2022-07-13 07:16 | ANES.PREOP_ITS ---
General Info Date of Service Date Performed: 07/13/22 Height: 5 ft 4 in Weight: 81.647 kg Body Mass Index (BMI): 30.9 Surgical Procedure: Operation Date: 07/13/22 09:10 Proposed Procedure Side Surgeon p Tibial Rodding/IM Nailing Left Tejas Muller MD Meds Allergies and Home Medications Allergies Allergy/AdvReac Type Severity Reaction Status Date / Time No Known Allergies Allergy Verified 07/12/22 17:56 Home Medication Medication Instructions Recorded prenat.vits,diana,[id number] 1 tab PO DAILY 12/06/21 aspirin 81 mg capsule 81 mg PO DAILY 02/16/22 ondansetron HCl 4 mg tablet 4 mg PO Q6H PRN nausea and 03/03/22 vomiting #30 tabs cetirizine 10 mg capsule (Zyrtec) 10 mg PO DAILY PRN 03/16/22 alcohol swabs (Alcohol Pads) 1 pad topical .4 times daily #200 05/17/22 ea blood sugar diagnostic (FreeStyle #100 ea 05/17/22 Lite Strips) blood-glucose meter (FreeStyle #1 ea 05/17/22 Lite Meter kit) lancets 28 gauge (FreeStyle #100 ea 05/17/22 Lancets) enoxaparin 40 mg/0.4 mL 40 mg (0.4 mL) subcut DAILY #4 mL 07/13/22 subcutaneous syringe (Lovenox) Current Visit Medications: Current Medications Generic Name Dose Route Start Last Admin Trade Name Freq PRN Reason Stop Dose Admin Acetaminophen 1,000 mg 07/12/22 21:41 Acetaminophen 500 Mg Tab PO Q6H PRN PRN Dimethicone/Zinc Oxide 0 gm 07/12/22 19:50 Nacho Protect Cream 142 Gm Tube TP PRN PRN Sodium Chloride 1,000 mls @ 200 mls/hr 07/12/22 20:15 07/12/22 23:59 Saline 1000ml Bag IV 200 mls/hr INFUSION BELL Administration Morphine Sulfate 3 mg 07/13/22 03:31 07/13/22 05:39 Morphine 2 Mg/Ml Syr IVP 3 mg Q2H PRN PRN Administration Ondansetron HCl 4 mg 07/12/22 21:24 Ondansetron 4 Mg/2 Ml Vial IVP Q4H PRN PRN Sodium Chloride 0 ml 07/12/22 23:00 07/13/22 05:40 Normal Saline Flush 10 Ml Syr IVP 10 ml PRN PRN Administration PFSH Active Problems Active Problems: Problem Status Onset Code Closed fracture of right tibia and fibula 07/12/22 S82.201A, S82.401A Swelling of left foot M79.89 SUSSY (stress urinary incontinence, female) N39.3 Gestational diabetes mellitus (GDM) affecting O24.419 Anxiety Family history of thyroid disease in mother Z83.49 Advanced maternal age in multigravida O09.529 Z34.90 Medical History Medical History Yeast vaginitis Surgical History Surgical History Repair of umbilical hernia 2011 [facility] S/P laparoscopy Tobacco Smoking/Tobacco Use Status: Never Alcohol Alcohol Intake: never Substance Use Substance use: Never Substance use type: does not use Prental History History 2 Para 1 Hx # Term Pregnancies 1 Multiple births 0 Hx # Pregnancies 0 Ectopic pregnancies 0 AB induced 0 Hx Number of Living Children 1 AB spontaneous 0 Past Pregnancies Del. Date GA/Weeks # Preg Succ Route Wgt Sex Labor Lgth Anesth [facility] 01[facility]05 39 No Yes vaginal 2948.35 g Female 6hr [place], [place] Delivery Date: 01/12/05 Last Updated by: Ashlyn Blake CNM SROM X 12 hours then augmentation with delivery 6 hours later. Vital Signs and Lab Results Vital Signs Most Recent Vital Signs in EMR: Most Recent Vital Signs Temp Pulse Resp BP Pulse Ox 37.0 C 88 18 114/72 98 07/13/22 05:33 07/13/22 05:33 07/13/22 05:33 07/13/22 05:33 07/12/22 21:42 Lab Results 07/12/22 20:12 07/12/22 20:12 Blood Type / Crossmatch: No Data to Display Complete Blood Count: White Blood Count 9.69 10^3/uL (4.4-10.8) 07/12/22 20:12 Red Blood Count 3.80 10^6/uL (3.93-5.22) L 07/12/22 20:12 Hemoglobin 11.0 g/dL (11.2-15.7) L 07/12/22 20:12 Hematocrit 33.4 % (36.0-46.0) L 07/12/22 20:12 Platelet Count 127 10^3/uL (130-400) L 07/12/22 20:12 Complete Metabolic Panel: Sodium 134 mmol/L (136-145) L 07/12/22 20:12 Potassium 3.5 mmol/L (3.5-5.1) 07/12/22 20:12 Chloride 105 mmol/L (98-107) 07/12/22 20:12 Carbon Dioxide 22.8 mmol/L (21.0-32.0) 07/12/22 20:12 BUN 13 mg/dL (7-18) 07/12/22 20:12 Creatinine 0.9 mg/dL (0.55-1.02) 07/12/22 20:12 Est GFR (CKD-EPI 2020) 81.86 (mL/min/1.73m2) 07/12/22 20:12 Calcium 8.1 mg/dL (8.5-10.1) L 07/12/22 20:12 Albumin 2.6 g/dL (3.4-5.0) L 07/12/22 20:12 Glucose 127 mg/dL (74-106) H 07/12/22 20:12 Liver Function Panel: Alanine Aminotransferase (ALT/SGPT) 18 U/L (14-59) 07/12/22 20: 12 Aspartate Amino Transf (AST/SGOT) 12 U/L (15-37) L 07/12/22 20: 12 Coagulation Panel: No Data to Display Cardiac Panel: No Data to Display Arterial Blood Gas: No Data to Display Venous Blood Gas: No Data to Display Pancreas Panel: No Data to Display Thyroid Panel: No Data to Display Infectious Disease: Coronavirus (COVID-19)(PCR) Negative (Negative) 07/12/22 21:15 Coronavirus 2019 Source Nasal/Nares 07/12/22 21:15 Blood Cultures: No Data to Display Toxicology Panel: No Data to Display Panel: No Data to Display Anesthesia Assessment and Plan Anesthesia History Personal History: No History of Anesthesia Complications Family History: No Family History of Anesthesia Complications Exercise Tolerance Exercise Tolerance: Metabolic Equivalents>4 Pertinent Negatives Pertinent Negatives: No Major Cardiovascular Symptoms or Complaints and No Major Pulmonary Symptoms or Complaints Cardiac & Pulmonary Exam Cardiac Exam: Normal S1/S2 Heart Sounds Pulmonary Exam: Clear Bilateral Breath Sounds Implantable Cardiac Device Does patient have a Pacemaker or an ICD?: No Airway Exam Known Difficult Airway: No Mallampati Class: 2 Mouth Opening: Normal (> 3cm) Thyromental Distance: Greater than 3 cm Neck Range of Motion: Full ROM Neck Circumference: Normal Teeth Condition: Normal Dentition ASA Classification ASA Score: ASA 2 Emergency Case?: No NPO Status NPO Status: NPO Clears >2 hours, Solids >8 hours and Full Stomach (36/weeks ) Status Status: Confirmed Anesthesia Plan Resuscitation Status: Full Code Anesthesia Technique: Spinal Anesthesia Airway Planned: Natural Airway Pain Management: Surgeon and patient request nerve block Monitors Used: Standard Monitors Preoperative Comments:: Plan for preoperative regional nerve block, SAB for surgery, no sedation. Backup GA plan with monitoring in place for duration of surgery if required.
--- NOTE | 2022-07-13 08:30 | DI.US_ITS ---
Exam(s) US OB GIANA WEIGHT EXAM: US OB GIANA WEIGHT CLINICAL HISTORY: AMA. TECHNIQUE: Transabdominal obstetrical ultrasound performed. COMPARISON: No exams were available for comparison FINDINGS:: Number of fetuses: One. position: Vertex. Placental location: Posterior. No evidence of previa. BIOMETRIC DATA: BPD: 92mm = 37+ 3 weeks HC: 334mm = 38+ 1 weeks AC: 317mm = 35+5 weeks FL: 71 mm = 36+ 3 weeks EFW: 2904 Gms = 53% Composite Age: 37+ 0 weeks EDC: 03 August 2022 Heart Rate: 157BPM Amniotic fluid index: 16.4 cm. Amount of fluid is visually within normal limits. IMPRESSION: size and weight are within the expected range. DATA REPOSITORY:
--- NOTE | 2022-07-13 08:30 | DI.RAD_ITS ---
Exam(s) XR TIB/FIB RT EXAM: XR TIB/FIB RT CLINICAL HISTORY: Closed fracture of right tibia and fibula. TECHNIQUE: 2D and realtime digital imaging was performed. COMPARISON: No exams were available for comparison FINDINGS: Hard copy images show placement of an intramedullary sammy through the tibia for fracture fixation. Th e alignment appears anatomic. Please see procedure note for details. Fluoro time: 135.9seconds RADIATION DOSE DELIVERED: janette Donnelly=6.10 mGy
[2022-07-13] MEDS: Lactated Ringers 1,000 ML 50 ML IV (09:43)
--- NOTE | 2022-07-13 10:40 | W.ANESNERVE ---
Nerve Block Single Injection Procedure Date and Time Date Performed: 07/13/22 Procedure Start: 09:22 Location Where Procedure Performed Procedure Location: PACU Reason Performed: Postoperative Analgesia Requesting Provider: Tejas Muller Timeout Performed Timeout Performed: Yes Monitoring Used ECG, Blood Pressure, SpO2, ETCO2 and See EMR for corresponding vital signs Sterility Sterility: Hand Hygiene, Surgical Cap, Surgical Mask, Sterile Gloves and Chlorhexidine Sedation Given During Procedure Sedation Given (Indicate Dose Given): No Sedation given Patient Mental Status Patient Mental Status: Awake Nerve Block 1st Nerve Block: Laterality: Right Block Type: Popliteal Sciatic Ultrasound Image Saved?: Yes Needle / Catheter Used: 100mm SonoPlex II Local Anesthetic Bolus (Indicate Dose Given): Lidocaine used for local infiltration of skin, Injected in 3-5ml increments after negative blood aspiration and Bupivacaine 0.375% Dose:: 20 mL Additives (Indicate Dose Given): None Ultrasound: Sterile probe cover and gel used Nerve Stimulator: Not Used Paresthesia: Right Paresthesia Duration: Transient (Described as pressure) Procedure Tolerated: No Complications Procedure Outcome: Successful Procedure Comment: Sheldon Kessler CRNA assist Performed By: Jasmin Overton 2nd Nerve Block: Laterality: Right Block Type: Adductor Canal Ultrasound Image Saved?: Yes Needle / Catheter Used: 100mm SonoPlex II Local Anesthetic Bolus (Indicate Dose Given): Lidocaine used for local infiltration of skin, Injected in 3-5ml increments after negative blood aspiration and Bupivacaine 0.375% Dose:: 10 mL Additives (Indicate Dose Given): None Ultrasound: Used to lefty site Nerve Stimulator: Not Used Paresthesia: None Procedure Tolerated: No Complications Procedure Outcome: Successful Procedure Comment: Sheldon Kessler CRNA assist with block Performed By: Jasmin Overton
[2022-07-13] MEDS: ceFAZolin 2 GM/50 ML BAG 100 GM (10:57)
[2022-07-13] MEDS: Bupivacaine 0.25% Pres-Free W/EPI 30 ML VIAL (10:58)
--- NOTE | 2022-07-13 12:14 | W.PM.OP ---
Date of service: 07/13/22 Time of Service: 10:00 Operative Note Operative Note DATE OF PROCEDURE: 07/13/22 PRE-OP DIAGNOSIS: Right displaced tibia and fibular shaft fractures POST-OP DIAGNOSIS: same Separate nondisplaced posterior malleolus fracture PROCEDURE: Right tibia intramedullary nailing, CPT #14870 Closed treatment without manipulation isolated posterior malleolus fracture, CPT #07241 SURGEON: Tejas Muller ALTERNATIVE MEDICINE PRACTITIONER: Uma Adam ANESTHESIA TYPE: Local By Surgeon, Spinal and Primary Nerve Block Refer to Anesthesia Record ESTIMATED BLOOD LOSS: 10 TOURNIQUET TIME: 0 COMPLICATIONS: None Patient was transported to: PACU Patient's condition: stable Implants: Synthes tibia expert nail 10 x 300 mm with 2x distal and 2x proximal 5.0 mm locking screws Indications: Please see complete medical record for details. Procedure Description: In the operating room, spinal anesthesia was induced. Appropriate obstetrical monitoring was done followed by shielding of the patient. The patient was positioned supine on the operating room table avoiding pressure of the IVC with tilt to her left. All bony prominences were well-padded. Preoperative antibiotics were administered. The right leg was prepped and draped in the usual sterile fashion. The correct patient, procedure, and side of the procedure were all verified prior to incision. The lateral extra-articular approach to the proximal tibia was with the patella mobilized medially. The appropriate start point was obtained with the cannulated awl and confirmed fluoroscopically. The awl was used to open the proximal tibia followed by insertion of a ball tip guidewire. The guidewire was directed down the tibia to the fracture site, which was reduced manually via closed means. The ball wire was then passed across the fracture and centered in the distal tibial physis. Reaming was then done sequentially taking care to maintain reduced fracture position starting with 8.5 mm and going up to 11.5 mm with strong chatter at this last reamer. During the reaming process, a nondisplaced posterior malleolus fracture became visible. It was scrutinized and monitored throughout the reaming especially distally. It demonstrated no displacement or motion. The depth gauge was used and appropriately length nail was selected. The nail was assembled on the jig and then passed into the tibia over the guidewire, carefully directed across reduced fracture, and then into a central position in the distal tibia with the guidewire removed before final seating. The posterior malleolus fracture was not disrupted. Distal locking was then done using perfect circles technique. The fracture was well reduced so only gentle backslapping was done. Proximal locking was then done medially to laterally through the jig. The jig was removed. X-rays used to confirm appropriate hardware placement and tibial and fibular shaft fracture reduction. The posterior malleolus is also remained in completely nondisplaced position. Decision was made to omit any additional fixation. The small locking sites were irrigated then skin closed with 3-0 nylon. The proximal lateral approach was then copiously irrigating ensuring all reamings were removed from the site before closing the retinaculum with 2-0 Monocryl, subcutaneous tissue with 2-0 Monocryl, and then skin with 3-0 Monocryl running. Steri-Strips applied over this incision. Xeroform over all incisions followed by 4 x 4 gauze, sterile soft roll, and the foot through thigh gently wrapped in Brant bandage. A cam boot was obtained appropriately sized to protect the posterior malleolus ankle fracture. The patient tolerated the procedure without complication and was transferred to the recovery room in a stable condition.
--- NOTE | 2022-07-13 12:14 | W.PM.PROGNOT ---
Date of Service Date of service: 07/13/22 Time of Service: 17:51 Assessment and Plan Assessment and plan (1) Closed fracture of right tibia and fibula: Status: Acute Assessment and plan: 42 year old female postop day #0 status post right tibia intramedullary nailing and nondisplaced posterior malleolus fracture Second dose IV antibiotics, resume diet, physical therapy and Occupational Therapy ordered Multimodal pain control. Typically use NSAIDs, but will avoid given . Acetaminophen and oxycodone as needed. Recommend ice and elevation right lower extremity minimize swelling and discomfort. Encourage range of motion to ankle and toes to improve circulation prevent stiffness. Exam not concerning for compartment syndrome or other problem. Although pain is reported high, she does not appear to be in any distress at all. Reassured patient. Patient has received minimal pain medicine since surgery. Medication recommendations and changes made?discussed with nursing staff and primary obstetric team Call if any questions or concerns Postoperative instructions? Surgery 07/13/22 Right tibia intramedullary nailing, closed treatment posterior malleolus fracture Activity: Weightbearing as tolerated in CAM boot with crutches or walker. Boot off while resting. Prescriptions: Per obstetrics team, recommend acetaminophen and oxycodone Dressings: Adjust/loosen Brant bandage as needed for comfort. Leave dressing in place for 5 days. May then remove and leave open to air or cover incisions with Band-Aids. May shower after 7 days. Follow-up: 10-[address] Muller (my office will call you to make this appointment) Subjective Subjective Interval history since last seen: Feeling significant pain and pressure in her entire leg. Nerve block is largely worn off. Some minor decrease sensation. Able to ambulate short distance physical therapy with boot. Exam Narrative Exam Narrative: No acute distress. Reports significant pain with pressure in the leg. Brant bandage opened up, and examined mend thoroughly. Leg compartments all soft. Thigh okay. Able to demonstrate reasonably good active range of motion ankle and toes. Absolutely no pain with passive stretch. Tolerates passive range of motion about knee without difficulty. Able to reposition lift leg up and put it back down without undue stress. Sensation largely intact dorsal foot with minor decrease sensation superficial peroneal, deep peroneal. Sensation largely intact throughout thigh and leg without paresthesias. Plantar foot is moderately densely numb patient reports from nerve block still. Extrem Other: Patient sitting upright in bed, appears somewhat uncomfortable. Right lower extremity with post-op dressing/BRANT wrap in place. Wiggles toes. Tolerates gentle passive movement of the hip and knee to prop lower leg up on pillows. Sensation intact to light touch. 2+ dorsalis pedis pulse. Objective Last Vital Signs Temp 99.0 F 07/13/22 09:19 Pulse 82 07/13/22 09:19 Resp 16 07/13/22 09:19 BP 142/79 H 07/13/22 09:19 Pulse Ox 98 07/13/22 09:19 Laboratory Results - last 24 hr 07/12/22 07/12/22 07/12/22 20:12 20:12 21:15 WBC 9.69 RBC 3.80 L Hgb 11.0 L Hct 33.4 L MCV 88 MCH 28.9 MCHC 32.9 RDW 13.0 Plt Count 127 L MPV 12.7 H Immature Gran % 0.6 Neutrophils % 80.5 Lymphocytes % 11.7 Monocytes % 6.7 Eosinophils % 0.3 Basophils % 0.2 Nucleated RBC % 0.0 Absolute Neutrophils 7.80 H Absolute Lymphocytes 1.13 L Absolute Monocytes 0.65 Absolute Eosinophils 0.03 Absolute Basophils 0.02 Sodium 134 L Potassium 3.5 Chloride 105 Carbon Dioxide 22.8 Anion Gap 6.2 BUN 13 Creatinine 0.9 Est GFR (CKD-EPI 2020) 81.86 Glucose 127 H Calcium 8.1 L Total Bilirubin 0.3 AST 12 L ALT 18 Alkaline Phosphatase 113 Total Protein 6.2 L Albumin 2.6 L Urine Color Urine Clarity Urine pH Ur Specific [place] Urine Protein Urine Ketones Urine Blood Urine Nitrite Urine Bilirubin Urine Urobilinogen Ur Leukocyte Esterase Urine RBC Urine WBC Ur Epithelial Cells Urine Crystals Urine Bacteria Urine Casts Urine Mucus Ur Culture Indicated? Urine Glucose COVID-19 Source Nasal/Nares SARS-CoV-2 (PCR) Negative 07/12/22 22:57 WBC RBC Hgb Hct MCV MCH MCHC RDW Plt Count MPV Immature Gran % Neutrophils % Lymphocytes % Monocytes % Eosinophils % Basophils % Nucleated RBC % Absolute Neutrophils Absolute Lymphocytes Absolute Monocytes Absolute Eosinophils Absolute Basophils Sodium Potassium Chloride Carbon Dioxide Anion Gap BUN Creatinine Est GFR (CKD-EPI 2020) Glucose Calcium Total Bilirubin AST ALT Alkaline Phosphatase Total Protein Albumin Urine Color Yellow Urine Clarity Sl Cloudy Urine pH 6.0 Ur Specific [place] >= 1.030 H Urine Protein 30 H Urine Ketones Negative Urine Blood Negative Urine Nitrite Negative Urine Bilirubin Negative Urine Urobilinogen 0.2 Ur Leukocyte Esterase Negative Urine RBC Negative Urine WBC Negative Ur Epithelial Cells Rare Urine Crystals Negative Urine Bacteria Rare Urine Casts Negative Urine Mucus Negative Ur Culture Indicated? No Urine Glucose Negative COVID-19 Source SARS-CoV-2 (PCR) Time Spent with Patient Time Spent with Patient: <25 minutes Time was spent: counseling the patient
--- NOTE | 2022-07-13 13:20 | NUR.NOTE ---
Returned to room 305 via Med Surg bed from OR. Alert oriented IV patent via R periph line .
[2022-07-13] MEDS: HYDROmorphone 2 MG/ML SYR 1 MG IVP (14:24)
[2022-07-13] MEDS: oxyCODONE 5 mg/Acetaminophen 325 mg TAB PO (15:21)
--- NOTE | 2022-07-13 15:54 | W.ANESPOSTOP ---
Postoperative Evaluation Date, Time and Location Date Performed: 07/13/22 Time Performed: 15:54 Patient Location: Obstetrics Vital Signs Most Recent Imported Vital Signs: Most Recent Vital Signs Temp Pulse Resp BP Pulse Ox 36.8 C 95 H 14 130/70 99 07/13/22 13:24 07/13/22 14:34 07/13/22 14:30 07/13/22 14:34 07/13/22 14:30 Pain Score Most Recent Pain Score: Most Recent Pain Score Pain Level 8 07/13/22 15:21 Assessment Mental Status: Awake (Alert & Oriented to Patient Baseline) Airway and Respiratory Function: Patent airway with normal (patient baseline) respiratory exam Cardiovascular Function: Hemodynamically Stable Hydration Status: Adequately Hydrated Nausea & Vomiting: No Nausea or Vomiting Pain: Pain is Moderate or Severe Postoperative Pain Management: Pain being addressed with medication (Reports medial pain, receiving oral pain medications) Peripheral Nerve Block: Regional nerve block not resolved at time of post operative discharge
--- NOTE | 2022-07-13 16:22 | PT.INIE ---
PT Notes Visit Reasons: Right Tib/Fib Fracture Physical Therapy Inpatient Initial Evaluation Date: 07/13/22 Referring Doctor: Tejas Muller MD PT Orders: PT CONSULT: s/p ortho surgery Precautions: Fall. Standard. WBAT R LE with CAM boot. 36 weeks gestation Patient Profile/Admitting Diagnosis: Lizy is 42 yo female that presented to the ER on 07/12/22 after a fall resulting in right tibial fibular fracture. She is POD #0 for right tibia intramedullary nailing. She is currently 36 weeks gestation. PMHX: See EMR Social History/Home Situation: Lives with partner in apartment, 12 [address] outside with bilateral hand rails, 4 steps to bedroom. Independent at baseline Equipment Owned/DME: None Subjective: Cleared by nursing to see patient and patient is agreeable to PT. Patient sitting up in bed at time of consult with legs elevated. Objective: General Observation: , bandage right LE Mental Status: A&O x3 Pain: Right LE pain - rating not acquired ROM: Right Upper Extremity: Shoulder Flexion WFL. Shoulder abduction WFL. Elbow flexion WFL. Wrist flexion WFL. Opening and closing of hand WFL. Left Upper Extremity: Shoulder Flexion WFL. Shoulder abduction WFL. Elbow flexion WFL. Wrist flexion WFL. Opening and closing of hand WFL. Right Lower Extremity: Hip flexion WFL. Hip abduction WFL. Knee flexion impaired. Ankle dorsiflexion impaired. Ankle plantarflexion WFL. Left Lower Extremity: Hip flexion WFL. Hip abduction WFL. Knee flexion WFL. Ankle dorsiflexion WFL. Ankle plantarflexion WFL. Strength: Right Upper Extremity: Shoulder flexors 5/5. Shoulder abductors 5/5. Elbow flexors 5/5. Elbow extensors 5/5. Custodial Foreman strong. Left Upper Extremity: Shoulder flexors 5/5. Shoulder abductors 5/5. Elbow flexors 5/5. Elbow extensors 5/5. Custodial Foreman strong. Right Lower Extremity: Hip flexors 5/5. Knee flexors 5/5. Knee extensors 5/5. Ankle dorsiflexors 5/5. Ankle plantarflexors 5/5. Left Lower Extremity: Hip flexors 4/5. Knee flexors 2/5. Knee extensors 2/5. Ankle dorsiflexors 2/5. Ankle plantarflexors 2/5. Sensation: Decreased sensory awareness in right buttock region and right LE Bed Mobility/Transfers: Supine to sit: Mod A for leg Sit to supine: Mod A for leg Sit to stand: SBA Stand to sit: SBA Gait: Ambulated 10ft in room x2 with FWW, CAM boot, and step to gait Stairs: Not assessed this session Balance: Static Sitting: Normal Dynamic Sitting: Normal Static Standing: Good Dynamic Standing: Fair Therapeutic Activity (91032) dynamic movement and functional strengthening to improve physical performance: 15 minutes Ambulation to bathroom with FWW Patient performed personal care with assist of partner Special Tests: Mobility Limitations Standardized Measure [facility] AM-PAC 6 clicks Basic Mobility Inpatient Short Form: Raw Score: 14 CMS Score: 61% Informed Consent/Education: Patient instructed in purpose of PT consult and plan of care. Assessment: Patient presents with clinical signs and symptoms consistent with current/admitting diagnoses that have resulted to mobility limitations, gait instability, generalized weakness, and impairment of motor control as demonstrated by the following impairment level findings: 1. Decreased strength to right lower extremity major muscle groups 2. Impaired standing balance 3. Impaired activity tolerance 4. Limitation of joint range of motion in right knee/ankle Impairments are contributing to the following functional limitations: 1. Increased dependence with bed mobility skills 2. Increased dependence with transfers 3. Inability to safely ambulate without assistive device and physical assistance 4. Increase completion time for mobility ADL performance 5. Increased fall risk 6. Inability to negotiate steps alone safely Patient is assessed as a Low complexity based on the following: History: 42 year old female with impairment level findings, functional limitations, and past medical history as indicated above Examination: Demonstrable impairment in strength, balance, and mobility level with underlying impairments and functional limitations as documented above Presentation: Stable Decision Making: Low complexity Goals: Goals x1 week 1. Supine-Sit: independent 2. Sit-Supine: independent 3. Sit-Stand: independent 4. Stand-Sit: independent 5. Bed-Chair: independent 6. Chair-Bed: independent 7. Independent gait on level surface with use of least restrictive device for at least 300 feet without report of pain nor dyspnea 8. Good static and dynamic standing balance/tolerance 9. Independent with home exercise program 10. Independent stair negotiation while holding onto bilateral rails for at least 10 steps without report of pain nor dyspnea Plan of Care/Treatment Plan: 1-2x/day, 7 days/week x1 week. Plan of care has been reviewed with the ICE SKATING COACH providing the service under Physical Therapy direction. Initiate Physical Therapy intervention for strengthening, bed mobility, transfers, gait, stairs, balance training, and use of assistive device. Discharge Plan DISCHARGE RECOMMENDATIONS: Home with no services, FWW TREATMENT CODE/TIME: 15:35-16:18 (43 minutes), [id number], [id number] Thank you for the opportunity to participate in the care of this patient. Radha Hummel, PT, DPT, OCS [facility] [place], [place]
[2022-07-13] MEDS: Acetaminophen 325 MG TAB 650 MG PO (17:48)
[2022-07-13] MEDS: oxyCODONE 5 MG TAB 10 MG PO (17:49)
[2022-07-13] MEDS: oxyCODONE 5 MG TAB PO (21:45)
[2022-07-14] VITALS (9 sets, daily range): BP systolic 107–129; BP diastolic 57–74; PULSE 69–87; RESP 16–18; TEMP 36.7–37.2; O2SAT 98
[2022-07-14] MEDS: Acetaminophen 500 MG TAB 1000 MG PO ×4 (00:59→17:55)
[2022-07-14] MEDS: oxyCODONE 5 MG TAB PO ×7 (02:34→23:39)
[2022-07-14] MEDS: diphenhydrAMINE 25 MG CAP PO (02:34)
--- NOTE | 2022-07-14 04:03 | NUR.NOTE ---
0330 pt awoke and was complaining of contractions was put on the monitor had 2 contractions in 5 minutes mild to palpations iNursing Note: then the contractions stopped. mom instructed to let us know if she has anymore contractions
--- NOTE | 2022-07-14 09:38 | PGE_ITS ---
Date of Service Date of service: 07/14/22 Time of Service: 09:38 Assessment and Plan Assessment and plan (1) : Status: Acute Assessment and plan: at 36 weeks. continue surveillance with twice weekly nonstress testing. (2) Gestational diabetes mellitus (GDM) affecting : Status: Acute Assessment and plan: Continue Accu-Cheks. Diet as directed. (3) Closed fracture of right tibia and fibula: Status: Acute Assessment and plan: Status post right tibial intramedullary nailing. Will need pain control with narcotic pain medication and acetaminophen. Lovenox, 40 mg subcu for DVT prophylaxis. Subjective Subjective Interval history since last seen: Patient seen this morning. She continues to have some lower extremity pain, but improved with pain medication. We discussed the use of her Lovenox up until the time of delivery. She does understand that if she has labor symptoms, spontaneous rupture of membranes she will discontinue Lovenox prior to delivery. She also has some apprehension about being at home as they have 12 stairs to get into their residence. Physical therapy will be assisting in her mobility. Exam Narrative Exam Narrative: Doing well. Pain is improved today Const General: cooperative, healthy appearing and comfortable Orientation: alert and oriented x3 HENMT Head: normal to inspection Eyes General: appearance normal, both eyes and all related structures Resp Effort & Inspection: normal respiratory effort and no cough Cardio Rate: regular rate GI Inspection: normal to inspection Psych Appearance: grossly normal Mental Status: mental status grossly normal Speech and Movement: speech and movement normal Mood: congruent mood Affect: normal affect Attitude: cooperative Objective Last Vital Signs Temp 98.6 F 07/14/22 03:35 Pulse 72 07/14/22 03:35 Resp 18 07/14/22 03:35 BP 121/68 07/14/22 03:35 Pulse Ox 99 07/13/22 17:45 Time Spent with Patient Time Spent with Patient: 25-34 minutes Time was spent: obtaining and/or reviewing separately otained hiistory, referring, communicating with other health vocational childcare teacher, counseling the patient and care coordination
--- NOTE | 2022-07-14 09:47 | DSE_ITS ---
Date of service: 07/14/22 Time of Service: 09:47 DS: Diagnosis Discharge Diagnosis (1) : Status: Acute Asessment and Plan: at 36 weeks. Advanced maternal age. Continue surveillance, twice weekly nonstress testing. Delivery at 39 weeks will be planned. (2) Gestational diabetes mellitus (GDM) affecting : Status: Acute Asessment and Plan: Continue diet modifications, Accu-Cheks. (3) Closed fracture of right tibia and fibula: Status: Acute Asessment and Plan: Pain medications, follow-up with orthopedics. Physical therapy evaluation perfo rmed. DVT prophylaxis with subcutaneous Lovenox. Discharge Plan Disposition Patient Disposition: Home Condition: Improving Discharge Details Reason For Visit: Right Tib/Fib Fracture Admit Date/Time: 07/12/22 21:07 Admit Provider: Lisa Gómez Attending Provider: Lisa Gómez Primary Care Provider: Fito Harris Hospital Course Hospital Course: Patient was admitted via the emergency department after having a fall and tib- fib fracture of her right leg. She was admitted, seen by orthopedics and underwent intramedullary nailing. She had an uncomplicated postoperative course she was discharged home postoperative day #1 with oral pain medication and therapy 40 mg subcu daily for DVT prophylaxis. She will continue to have surveillance with twice weekly nonstress testing. Patient will have labor induction at 39 weeks. Home Meds and New Rx's Prescriptions: New oxycodone 5 mg Tablet 5 - 10 mg PO Q4H PRN PRNQty: 30 0RF Continued prenat.vits,diana,[id number] Tablet 1 tab PO DAILY Zyrtec 10 mg capsule 10 mg PO DAILY PRN ondansetron HCl 4 mg tablet 4 mg PO Q6H PRN (Reason: nausea and vomiting) Qty: 30 2RF (DME) FreeStyle Lite Strips Strip See Rx Instructions .Route Qty: 100 4RF Rx Instructions: 4 times daily (DME) blood-glucose meter [FreeStyle Lite Meter] Kit See Rx Instructions .Route Qty: 1 0RF Rx Instructions: 4 times daily (DME) lancets [FreeStyle Lancets] 28 gauge misc See Rx Instructions .Route Qty: 100 4RF Rx Instructions: 4 times daily alcohol swabs [Alcohol Pads] Pads, Medicated 1 pad topical .4 times daily Qty: 200 2RF enoxaparin [Lovenox] 40 mg/0.4 mL syringe 40 mg subcut DAILY Qty: 4 0RF Held aspirin 81 mg capsule 81 mg PO DAILY Hold Instructions: Resume on 08/10/22. Discharge Instructions Additional Instructions: physical therapy. Lovenox injection education. Follow-up for twice weekly surveillance. Follow-up with orthopedics. Surgery 07/13/22 Right tibia intramedullary nailing, closed treatment posterior malleolus fracture Activity: Weightbearing as tolerated in CAM boot with crutches or walker.? Boot off while resting. Prescriptions: Per obstetrics team, recommend acetaminophen and oxycodone Dressings: Adjust/loosen Brant bandage as needed for comfort. ? Leave dressing in place for 5 days.? May then remove and leave open to air or cover incisions with Band-Aids.? May shower after 7 days. Follow-up: 10-[address] Muller (my office will call you to make this appointment) Activity:: Activity as Tolerated Equipment/Supplies:: cam boot Diet:: Carb Counting Discharge Orders Discharge Orders: Discharge Order (Routine); Ordered 07/14/22 Ordered By: Lisa Gómez DS: Summary Time Spent with Patient providing and/or coordinating discharge services: Greater than 30 minutes Status at Discharge Functional status at discharge: independent ambulation (cam boot) Overall status at discharge: patient is progressing back to baseline Mental Status: mental status grossly normal Speech and Movement: speech and movement normal Mood: congruent mood Affect: normal affect Exam Psych Mental Status: mental status grossly normal Speech and Movement: speech and movement normal Mood: congruent mood Affect: normal affect DS: Data Vitals/I&O Vitals and I&O: Vital Signs Temperature 98.6 F 07/14/22 03:35 Temperature Source Tympanic 07/13/22 20:00 Pulse 72 07/14/22 03:35 Pulse Rhythm Regular 07/14/22 01:05 Respiratory Rate 18 07/14/22 03:35 Respiratory Effort Normal 07/14/22 01:05 Respiratory Depth Normal 07/14/22 01:05 Respiratory Pattern Normal 07/14/22 01:05 Blood Pressure 121/68 07/14/22 03:35 Blood Pressure Mean 85 07/13/22 20:09 Blood Pressure Position Supine 07/13/22 09:19 Pulse Oximetry 99 07/13/22 17:45 Oxygen Delivery Method Room Air 07/14/22 01:00 Oxygen Flow Rate 0 07/14/22 01:00 Pain Level 3 07/14/22 03:35 Intake & Output 07/13/22 07/13/22 07/14/22 11:59 23:59 11:59 Intake Total 600 / 600 Output Total 200 / 575 375 / 575 400 / 400 Balance - 225 / 25 -400 / -400 Weight 180 lb Intake: IV 600 / 600 Output: Urine 200 / 575 375 / 575 400 / 400 Other: Urine Color Yellow Yellow Light Raisa Urine Appearance Clear Clear Clear Urine Odor None None None Comment pt had voided 150 cc's prior to bladder scan Voiding Methods Bedpan Bedside Commode PFS All Active Problems (Updated 07/14/22 @ 08:58 by AFSANEH Mondragon) Closed fracture of right tibia and fibula (Acute 07/12/22) Swelling of left foot (Acute) SUSSY (stress urinary incontinence, female) (Acute) Gestational diabetes mellitus (GDM) affecting (Acute) 3 hour test F96, 1 h 187, 2h 150, 3h 99 Anxiety (Chronic) Family history of thyroid disease in mother (Acute) Advanced maternal age in multigravida (Acute) (Acute) Medical History Yeast vaginitis Surgical History Repair of umbilical hernia 2011 [facility] S/P laparoscopy Family History Father Diabetes Hypertension Mother Thyroid disorder Osteoporosis Social History Smoking/Tobacco Use Status: Never Smoking risk assessment performed?: Yes Alcohol Intake: never Drug use: Never Substance use type: does not use 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 Date GA/Weeks # Preg Succ Route Wgt Sex Labor Lgth Anesth esia Location Prov Complic 01/12/05 39 No Yes vaginal 6 lb 8 oz Female 6hr [place], [place] Delivery Date: 01/12/05 Last Updated by: Ashlyn Blake CNM [facility] X 12 hours then augmentation with delivery 6 hours later. Time Spent with Patient Time Spent with Patient: <45 minutes Time was spent: preparing to see the patient(eg.review tests), obtaining and/or reviewing separately otained hiistory, ordering medications,tests, procedures, referring, communicating with other health patient care technician instructor, counseling the patient and care coordination
[2022-07-14] MEDS: Enoxaparin 40 MG/0.4 ML SYR SC (09:51)
--- NOTE | 2022-07-14 10:18 | W.PM.PROGNOT ---
Date of Service Date of service: 07/14/22 Time of Service: 10:18 Assessment and Plan Assessment and plan (1) Closed fracture of right tibia and fibula: Status: Acute Assessment and plan: Lizy is a 42-year-old who is postop day 1 status post intramedullary fixation of a right midshaft tibia fracture with a posterior malleolar fragment and fibular shaft fracture. She is doing well. This is complicated by her 36-week gestational age. It is imperative that pain is manage preemptively rather than reactionary. It is going to heart for a few days and then it should level off and start to improve. The most important thing currently is just to transfer getting out of the bed and into a chair and out of a chair and onto the bathroom. This will allow her to go to home. Ambulation distance is not very important in the first few days. It is important to work on gentle range of motion of the ankle and the knee. The boot should be worn when mobilizing but does not have to be worn otherwise. However, it is important to try to get into the boot every day to work on ankle positioning. The dressings may be removed and replaced with Mepilex dressings or taken down altogether after [address] Muller's complete note from yesterday with the detailed discharge instruction plan. I will be available for any other postoperative questions. Subjective Subjective Interval history since last seen: Lizy was able to rest better last night. Unfortunate, she continues have some pain about the right leg this morning. She is awaiting pain medication currently. She was able to mobilize minimally yesterday but found it difficult to get into the boot. She is concerned about being able to mobilize and do stairs. No acute issues though post operatively. No chest pain or shortness of breath. No issues. Exam Narrative Exam Narrative: Sitting up in the hospital bed. No acute distress. Alert and orient x3. Evaluation of the right lower extremity shows clean dry and intact dressings. She is able to actively dorsiflex and plantarflex her right ankle with good motion. No significant increase in pain. She is able to actively extend and flex the great toe once again with no significant increase in pain. Gentle knee extension and flexion also does not increase pain. Objective Last Vital Signs Temp 36.7 C 02/25/23 09:37 Pulse 72 07/14/22 03:35 Resp 18 07/14/22 03:35 BP 121/68 07/14/22 03:35 Pulse Ox 99 07/13/22 17:45 Time Spent with Patient Time Spent with Patient: <25 minutes Time was spent: obtaining and/or reviewing separately otained hiistory and counseling the patient
--- NOTE | 2022-07-14 11:40 | PT.INTREAT ---
PT Notes Visit Reasons: Right Tib/Fib Fracture Inpatient Physical Therapy Treatment Note [facility] Date: 07/14/22 SUBJECTIVE: Lizy states that she is pretty uncomfortable, but able to manage. She is hoping to go home today as long as they can manage the pain. OBJECTIVE: [] PAIN: 4/10 at beginning of session, 5/10 at end BED MOBILITY/TRANSFERS Supine-sit:min assist with LE Sit-supine: min assist with LE Sit-stand: SBA Stand-sit: SBA Bed-Chair: CGA Chair-bed: CGA GAIT Assistive Device: FWW Weight bearing: TTWB Assist: CGA Distance: 20' plus 15' STAIRS:one full flight of stairs using one rail and partner for assistance. Verbal cues for proper sequencing. ASSESSMENT: tolerated session well. She was quite fatigued post rx. Admitted to being fearful of falling or re-injuring her leg. Partner very supportive. PLAN: possible dc later today. If she is here tomorrow will work on functional mobility and possibly stair training again. Depending on her needs. TREATMENT CODE/TIME: 30 min. [id number]
[2022-07-14] MEDS: MORPHine 2 MG/ML SYR 3 MG IVP ×2 (12:24→14:14)
[2022-07-14] MEDS: Normal Saline Flush 10 ML SYR IVP (12:25)
[2022-07-15] MEDS: diphenhydrAMINE 25 MG CAP PO (00:41)
[2022-07-15] MEDS: Acetaminophen 500 MG TAB 1000 MG PO ×3 (00:42→12:25)
[2022-07-15 00:58] VITALS: BP 115/69; PULSE 75; RESP 18
[2022-07-15] MEDS: oxyCODONE 5 MG TAB PO ×3 (03:59→12:05)
--- NOTE | 2022-07-15 06:45 | DSE_ITS ---
Date of service: 07/15/22 Time of Service: 06:50 DS: Diagnosis Discharge Diagnosis (1) Closed fracture of right tibia and fibula: Status: Acute Discharge Plan Disposition Patient Disposition: Home Condition: Improving Discharge Details Reason For Visit: Right Tib/Fib Fracture Admit Date/Time: 07/12/22 21:07 Admit Provider: Lisa Gómez Attending Provider: Lisa Gómez Primary Care Provider: Fito Harris Hospital Course Hospital Course: Patient was admitted via the emergency department after having a fall and tib- fib fracture of her right leg. She was admitted, seen by orthopedics and underwent intramedullary nailing. She had an uncomplicated postoperative course she was discharged home postoperative day #1 with oral pain medication and therapy 40 mg subcu daily for DVT prophylaxis. She will continue to have surveillance with twice weekly nonstress testing. Patient will have labor induction at 39 weeks. Home Meds and New Rx's Prescriptions: New oxycodone 5 mg Tablet 5 - 10 mg PO Q4H PRN PRNQty: 30 0RF Continued prenat.vits,diana,[id number] Tablet 1 tab PO DAILY Zyrtec 10 mg capsule 10 mg PO DAILY PRN ondansetron HCl 4 mg tablet 4 mg PO Q6H PRN (Reason: nausea and vomiting) Qty: 30 2RF (DME) FreeStyle Lite Strips Strip See Rx Instructions .Route Qty: 100 4RF Rx Instructions: 4 times daily (DME) blood-glucose meter [FreeStyle Lite Meter] Kit See Rx Instructions .Route Qty: 1 0RF Rx Instructions: 4 times daily (DME) lancets [FreeStyle Lancets] 28 gauge misc See Rx Instructions .Route Qty: 100 4RF Rx Instructions: 4 times daily alcohol swabs [Alcohol Pads] Pads, Medicated 1 pad topical .4 times daily Qty: 200 2RF enoxaparin [Lovenox] 40 mg/0.4 mL syringe 40 mg subcut DAILY Qty: 4 0RF Held aspirin 81 mg capsule 81 mg PO DAILY Hold Instructions: Resume on 08/10/22. Discharge Instructions Additional Instructions: physical therapy. Lovenox injection education. Follow-up for twice weekly surveillance. Follow-up with orthopedics. Surgery 07/13/22 Right tibia intramedullary nailing, closed treatment posterior malleolus fracture Activity: Weightbearing as tolerated in CAM boot with crutches or walker.? Boot off while resting. While in the bed work on ankle pumps and gentle knee range of motion. Prescriptions: Per obstetrics team, recommend acetaminophen and oxycodone. Daily Lovenox for blood clot prevention. Dressings: Leave dressings in place for at least 7 days. If they become soiled you may change them with Mepilex or bandaids. Follow-up: 10-[address] Muller (my office will call you to make this appointment). You may call Dr. Lee directly at [phone] if there are any immediate concerns, otherwise the Dr. Lee and Dr. Muller's office team is available at [phone]. Referrals: Tejas Muller MD [ [facility] STAFF PHYSICIAN] - Activity:: Activity as Tolerated Equipment/Supplies:: cam boot Diet:: Carb Counting Discharge Orders Discharge Orders: Discharge Order (Routine); Ordered 07/15/22 Ordered By: Ronnell Lee DS: Summary Time Spent with Patient providing and/or coordinating discharge services: Less than 30 minutes Status at Discharge Functional status at discharge: uses cane/walker Overall status at discharge: patient is progressing back to baseline Mental Status: mental status grossly normal Speech and Movement: speech and movement normal Mood: congruent mood Affect: normal affect Exam Narrative Exam Narrative: Dressing with some sanguinous discharge. All dressings changed to Mepilex. Able to straight leg raise. +ADF/APF/EHL/FHL. SILT DP/SP/Tib. Psych Mental Status: mental status grossly normal Speech and Movement: speech and movement normal Mood: congruent mood Affect: normal affect DS: Data Vitals/I&O Vitals and I&O: Vital Signs Temperature 37.2 C 07/14/22 20:00 Temperature Source Tympanic 07/13/22 20:00 Pulse 75 07/15/22 00:58 Pulse Rhythm Regular 07/14/22 20:05 Respiratory Rate 18 07/15/22 00:58 Respiratory Effort Normal 07/14/22 20:05 Respiratory Depth Normal 07/14/22 20:05 Respiratory Pattern Normal 07/14/22 20:05 Blood Pressure 115/69 07/15/22 00:58 Blood Pressure Mean 84 07/15/22 00:58 Blood Pressure Position Supine 07/13/22 09:19 Pulse Oximetry 98 07/14/22 09:30 Oxygen Delivery Method Room Air 07/14/22 01:00 Oxygen Flow Rate 0 07/14/22 01:00 Pain Level 1 07/15/22 06:29 Intake & Output 07/14/22 07/14/22 07/15/22 11:59 23:59 11:59 Output Total 480 / 1180 700 / 1180 600 / 600 Balance -480 / -1180 -700 / -1180 -600 / -600 Output: Urine 480 / 1180 700 / 1180 600 / 600 Other: Urine Color Yellow Yellow Yellow Urine Appearance Clear Clear Clear Urine Odor None None Comment up to void /c PT, not measured encourage to drink more urine is concentrated Voiding Methods Bedside Commode Toilet Toilet PFSH All Active Problems (Updated 07/14/22 @ 08:58 by AFSANEH Mondragon) Closed fracture of right tibia and fibula (Acute 07/12/22) Swelling of left foot (Acute) SUSSY (stress urinary incontinence, female) (Acute) Gestational diabetes mellitus (GDM) affecting (Acute) 3 hour test F96, 1 h 187, 2h 150, 3h 99 Anxiety (Chronic) Family history of thyroid disease in mother (Acute) Advanced maternal age in multigravida (Acute) (Acute) Medical History Yeast vaginitis Surgical History Repair of umbilical hernia [facility] Family History Father Diabetes Hypertension Mother Thyroid disorder Osteoporosis Social History Smoking/Tobacco Use Status: Never Smoking risk assessment performed?: Yes Alcohol Intake: never Drug use: Never Substance use type: does not use 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 Date GA/Weeks # Preg Succ Route Wgt Sex Labor Lgth Anesth esia Location Prov Complic 01/12/05 39 No Yes vaginal 2948.35 g Female 6hr [place], [place] Delivery Date: 01/12/05 Last Updated by: Ashlyn Blake CNM SROM X 12 hours then augmentation with delivery 6 hours later. Time Spent with Patient Time Spent with Patient: <45 minutes Time was spent: preparing to see the patient(eg.review tests), indepentently interpreting results, counseling the patient and care coordination
--- NOTE | 2022-07-15 07:33 | PGE_ITS ---
Date of Service Date of service: 07/15/22 Time of Service: 07:33 Assessment and Plan Assessment and plan (1) Advanced maternal age in multigravida: Status: Acute Assessment and plan: Continue surveillance with twice weekly nonstress. Anticipate delivery at 39 weeks. (2) Gestational diabetes mellitus (GDM) affecting : Status: Acute Assessment and plan: Continue Accu-Cheks, diet modification, and surveillance (3) Closed fracture of right tibia and fibula: Status: Acute Assessment and plan: Management per orthopedics Subjective Subjective Interval history since last seen: Patient seen and examined this morning. Better night. Taking oxycodone alternating with Tylenol. The pain over the night was a 1. Dressing change per Dr. Lee. From an extension standpoint stable. Will be discharged home. Follow-up for twice weekly nonstress testing. Continue Lovenox 40 mg subcu daily through delivery and increase mobility. Exam Narrative Exam Narrative: Doing well. Pain is improved today Const General: cooperative, healthy appearing and comfortable Orientation: alert and oriented x3 HENMT Head: normal to inspection Eyes General: appearance normal, both eyes and all related structures Resp Effort & Inspection: normal respiratory effort and no cough Cardio Rate: regular rate GI Inspection: normal to inspection Psych Appearance: grossly normal Mental Status: mental status grossly normal Speech and Movement: speech and movement normal Mood: congruent mood Affect: normal affect Attitude: cooperative Objective Last Vital Signs Temp 99 F 07/14/22 20:00 Pulse 75 07/15/22 00:58 Resp 18 07/15/22 00:58 BP 115/69 07/15/22 00:58 Pulse Ox 98 07/14/22 09:30 Time Spent with Patient Time Spent with Patient: 25-34 minutes Time was spent: obtaining and/or reviewing separately otained hiistory, referring, communicating with other health md do resident urgent care, indepentently interpreting results, counseling the patient and care coordination
--- NOTE | 2022-07-15 07:53 | W.OBNST ---
Date of service: 07/15/22 Time of Service: 07:54 NST Evaluation Reason for NST Reasons for Nonstress Test: OTHER, SEE COMMENT Reason for NST Other: post op Gestational Age Gestational Age in Weeks and Days: 36 Weeks and 3Days Test and Monitor Explained Test/Monitor Explained: Test Explained, Monitor Explained and Patient Verbalized Understanding Vital Signs Blood Pressure: 129/70 Pulse: 87 Temperature: 98.1 F NST Information Date on Monitor: 07/14/22 Time on Monitor: 10:13 Date off Monitor: 07/14/22 Time off Monitor: 10:35 Total Time on Monitor: 22 NST Interventions: PO Hydration and IV Fluids NST Evaluation Patient States Movement: Present FHR Baseline: 135 Variability: Moderate 6-25 bpm Accelerations: 15x15 Decelerations: None NST Results: Reactive Note N/A NST Note Note: REactive, category 1 NST NST Reviewed and Verified by: Lisa Gómez
[2022-07-15 07:54] VITALS: BP 129/70; PULSE 87; TEMP 36.7
[2022-07-15] MEDS: Enoxaparin 40 MG/0.4 ML SYR SC (08:02)
[2022-07-15 09:00] VITALS: BP 112/64; PULSE 80; RESP 17; TEMP 36.7
--- NOTE | 2022-07-16 08:15 | NUR.NOTE ---
Nursing Note: Accessed chart for [facility] billing purposes.
--- NOTE | 2022-07-16 12:59 | PT.INNT ---
Date of service: 07/15/22 PT Notes Visit Reasons: Right Tib/Fib Fracture Lizy declined treatment today indicating that she was being discharged home later this am. She reports that she has to do a flight of stairs when she gets home and is afraid that it would be too much. She reported an increase in pain after yesterdays PT session.
--- NOTE | 2022-07-17 08:02 | INDS_ITS ---
PT Notes Visit Reasons: Right Tib/Fib Fracture Inpatient Physical Therapy Discharge Summary Date: 07/17/22 Dates of Service: 07/13/22 through 07/16/22 This is a clinical summary of care provided for the duration of dates listed above. No charge was made in the completion of this documentation. Referring Doctor: Tejas Muller MD PT Orders: PT CONSULT: s/p ortho surgery Precautions: Fall. Standard. WBAT R LE with CAM boot. 36 weeks gestation Patient Profile/Admitting Diagnosis:[place] is 42 yo female that presented to the ER on 07/12/22 after a fall resulting in right tibial fibular fracture. She is POD #0 for right tibia intramedullary nailing. She is currently 36 weeks gestation. PMHX: See EMR Social History/Home Situation: Lives with partner in apartment, 12 [address] outside with bilateral hand rails, 4 steps to bedroom. Independent at baseline. Equipment Owned/DME: None Subjective:?See most recent THERAPEUTIC ASSISTANT notes. Objective:? ROM: Right Upper Extremity: Shoulder Flexion WFL. Shoulder abduction WFL. Elbow flexion WFL. Wrist flexion WFL. Opening and closing of hand WFL. Left Upper Extremity: Shoulder Flexion WFL. Shoulder abduction WFL. Elbow flexion WFL. Wrist flexion WFL. Opening and closing of hand WFL. Right Lower Extremity: Hip flexion WFL. Hip abduction WFL. Knee flexion impaired. Ankle dorsiflexion impaired. Ankle plantarflexion WFL. Left Lower Extremity: Hip flexion WFL. Hip abduction WFL. Knee flexion WFL. Ankle dorsiflexion WFL. Ankle plantarflexion WFL. Strength: Right Upper Extremity: Shoulder flexors 5/5. Shoulder abductors 5/5. Elbow flexors 5/5. Elbow extensors 5/5. Agricultural Researcher strong. Left Upper Extremity: Shoulder flexors 5/5. Shoulder abductors 5/5. Elbow flexors 5/5. Elbow extensors 5/5. Agricultural Researcher strong. Right Lower Extremity: Hip flexors 5/5. Knee flexors 5/5. Knee extensors 5/5. Ankle dorsiflexors 5/5. Ankle plantarflexors 5/5. Left Lower Extremity: Hip flexors 4/5. Knee flexors 2/5. Knee extensors 2/5. Ankle dorsiflexors 2/5. Ankle plantarflexors 2/5. Sensation:?Intact. Bed Mobility/Transfers: Supine to sit: Min A for leg Sit to supine: Min A for leg Sit to stand: Supervision Stand to sit: Supervision Balance:? Static Sitting: Normal Dynamic Sitting: Normal Static Standing: Normal Dynamic Standing: Good Assessment: Patient able to safely get in and out of bed with min A to support right lower extremity. She is able to walk short distances with CAM boot and FWW. Uses step to gait. Was able to do flight of stairs with cues and support of partner. This was fatiguing, but will be able to safely do this at home. PT services were beneficial in instruction for functional mobility and progression towards independence. Goals: Goals x1 week 1. Supine-Sit: independent - Not met 2. Sit-Supine: independent - Not met 3. Sit-Stand: independent - Met 4. Stand-Sit: independent - Met 5. Bed-Chair: independent - Met 6. Chair-Bed: independent - Met 7. Independent gait on level surface with use of least restrictive device for at least 300 feet without report of pain nor dyspnea - Not met 8. Good static and dynamic standing balance/tolerance - Met 9. Independent with home exercise program - Met 10. Independent stair negotiation while holding onto bilateral rails for at least 10 steps without report of pain nor dyspnea - Not met Discharge Plan DISCHARGE RECOMMENDATIONS: Home with no services, FWW TREATMENT CODE/TIME: No charge Thank you for the opportunity to participate in this patient's care.
== END 2022-07-15 13:00 | disposition home or self-care (01) | DRG 819 ==
LOC: ER 19:54 → OBS 07-13 06:43 → MS 07-13 10:16 → OBS 07-13 10:40
PROVIDERS: Student in an Organized Health Care Education/Training Program; Admitting Provider Obstetrics & Gynecology; Emergency Provider Physician Assistant; PCP Nurse Practitioner Family; Visit Provider Obstetrics & Gynecology
PROC: 0QSG06Z Reposition Right Tibia with Intramedullary Internal Fixation Device, Open Approach (ICD-10-PCS; CPT 27759; principal; 2022-07-13 09:00)
DX: O26.893 Other specified pregnancy related conditions, third trimester (principal); S82.391A Other fracture of lower end of right tibia, initial encounter for closed fracture; S82.831A Other fracture of upper and lower end of right fibula, initial encounter for closed fracture; O24.410 Gestational diabetes mellitus in pregnancy, diet controlled; O09.523 Supervision of elderly multigravida, third trimester; O99.343 Other mental disorders complicating pregnancy, third trimester; F41.9 Anxiety disorder, unspecified; F90.9 Attention-deficit hyperactivity disorder, unspecified type; Z3A.36 36 weeks gestation of pregnancy; K42.9 Umbilical hernia without obstruction or gangrene; N39.3 Stress incontinence (female) (male); W01.0XXA Fall on same level from slipping, tripping and stumbling without subsequent striking against object, initial encounter; Y93.K1 Activity, walking an animal
CPT/HCPCS: 27759; 27767; 29515; 76000; 76816; 76942; 80053; 87635; 96361; 96365; 96375; 96376; 97161; 97530; 99285; J1650; 59025; 73590; 81003; 81015; 85025; 99222; G0378; J0131; J0690; J1170; J2270; J2370; J2405

== ENCOUNTER 2022-07-17 13:54 | Outpatient (CLI) | payer BC, SELFPAY ==
[2022-07-17 18:13] VITALS: BP 130/72; PULSE 78; TEMP 36.9
[2022-07-17 18:34] VITALS: BP 130/72; BP 143/72; PULSE 73; PULSE 78; TEMP 36.7
--- NOTE | 2022-07-18 11:05 | W.OBNST ---
Date of service: 07/18/22 Time of Service: 11:05 NST Evaluation Reason for NST Reasons for Nonstress Test: ADVANCED MATERNAL AGE Gestational Age Gestational Age in Weeks and Days: 36 Weeks and 6Days Test and Monitor Explained Test/Monitor Explained: Test Explained, Monitor Explained and Patient Verbalized Understanding Vital Signs Blood Pressure: 130/72 Pulse: 78 Temperature: 98.4 F NST Information Date on Monitor: 07/17/22 Time on Monitor: 18:11 Date off Monitor: 07/17/22 Time off Monitor: 18:41 Total Time on Monitor: 30 Contraction Frequency: x1 NST Evaluation Patient States Movement: Present FHR Baseline: 140 Variability: Moderate 6-25 bpm Accelerations: 15x15 Decelerations: None NST Results: Reactive Note N/A NST Note Note: Reactive NST. Patient is status post a open reduction internal fixation of right tibia fibula fractures. She has a walking cast. She has been increasing her activity still has limited mobility. She continues on Lovenox 40 mg daily. She requests a refill of the oxycodone she has been using 5 mg every 4-6 hours for pain. I refilled her prescription for oxycodone 5 mg every 4-6 hours #30 dispensed no refills. She will continue to take acetaminophen as needed. I recommended against ibuprofen or other NSAIDs. The plan is to continue Lovenox 40 mg daily and to discontinue approximately 12 hours before planned induction of labor at 39 weeks. Anesthesia was consulted and agrees with the above plan. Patient will return later in the week for repeat NST. NST Reviewed and Verified by: Therese Andrea
[2022-07-18 11:09] VITALS: BP 130/72; PULSE 78; TEMP 36.9
== END 2022-07-17 19:10 | disposition home or self-care (01) ==
LOC: BCD 13:56 → OBS 17:35
PROVIDERS: PCP Nurse Practitioner Family; Visit Provider Obstetrics & Gynecology Gynecology
DX: O09.523 Supervision of elderly multigravida, third trimester (principal); O26.893 Other specified pregnancy related conditions, third trimester; S82.391A Other fracture of lower end of right tibia, initial encounter for closed fracture; S82.831A Other fracture of upper and lower end of right fibula, initial encounter for closed fracture; X58.XXXA Exposure to other specified factors, initial encounter; Z3A.36 36 weeks gestation of pregnancy
CPT/HCPCS: 59025; 87081

== ENCOUNTER 2022-07-20 17:47 | Outpatient (CLI) | payer BC, SELFPAY ==
[2022-07-20 18:47] VITALS: BP 133/78; PULSE 77; TEMP 36.6
[2022-07-20 19:13] VITALS: BP 135/76; PULSE 75
[2022-07-20 19:19] VITALS: BP 133/78; PULSE 82; TEMP 36.8
--- NOTE | 2022-07-23 07:11 | W.OBNST ---
Date of service: 07/23/22 Time of Service: 07:11 NST Evaluation Reason for NST Reasons for Nonstress Test: OTHER, SEE COMMENT Reason for NST Other: S/P tib/Fib repair Gestational Age Gestational Age in Weeks and Days: 37 Weeks and 2Days Test and Monitor Explained Test/Monitor Explained: Test Explained, Monitor Explained and Patient Verbalized Understanding Vital Signs Blood Pressure: 133/78 Pulse: 82 Temperature: 98.3 F NST Information Date on Monitor: 07/20/22 Time on Monitor: 18:40 Date off Monitor: 07/20/22 Time off Monitor: 19:10 Total Time on Monitor: 30 NST Interventions: None NST Evaluation Patient States Movement: Present FHR Baseline: 145 Variability: Moderate 6-25 bpm Accelerations: 15x15 Decelerations: None NST Results: Reactive Note N/A NST Note Note: Category 1, reactive nonstress test. Occasional uterine contraction. NST Reviewed and Verified by: Lisa Gómez
[2022-07-23 07:12] VITALS: BP 133/78; PULSE 82; TEMP 36.8
== END 2022-07-20 19:40 | disposition home or self-care (01) ==
LOC: BCD 17:47 → OBS 18:46
PROVIDERS: PCP Nurse Practitioner Family; Visit Provider Obstetrics & Gynecology
DX: O09.523 Supervision of elderly multigravida, third trimester (principal); O9A.213 Injury, poisoning and certain other consequences of external causes complicating pregnancy, third trimester; Z3A.37 37 weeks gestation of pregnancy
CPT/HCPCS: 59025

== ENCOUNTER 2022-07-24 08:01 | Outpatient (CLI) | payer BC, SELFPAY | END 2022-07-24 08:02 | disposition home or self-care (01) | LOC: BCD 08:02 | PROVIDERS: PCP Nurse Practitioner Family; Visit Provider Obstetrics & Gynecology ==

== ENCOUNTER 2022-07-24 15:59 | Outpatient (CLI) | payer BC, SELFPAY ==
--- NOTE | 2022-07-24 15:45 | DI.RAD_ITS ---
Exam(s) XR TIB/FIB RT EXAM: XR TIB/FIB RT CLINICAL HISTORY: f/u surgery. TECHNIQUE: 2D digital imaging was performed. COMPARISON: CR,XR XR TIB/FIB RT from 07/12/2022 FINDINGS: Two views: There has been interval rodding of the tibial fracture located below the midshaft level. This appear s to be in satisfactory position alignment. On the lateral view there is a nondisplaced posterior malleolus fracture noted. The fracture in the proximal fibular diaphysis is unchanged. IMPRESSION: Interval tibial rodding. There also appear to be fractures posterior malleolus as well as an additional fracture line seen low er down on the lateral view. Recommend dedicated ankle images. DATA REPOSITORY: RADIATION DOSE DELIVERED:
== END 2022-07-24 16:00 | disposition home or self-care (01) ==
LOC: DIORS 15:59
PROVIDERS: PCP Nurse Practitioner Family; Referring Provider Nurse Practitioner Family; Visit Provider Student in an Organized Health Care Education/Training Program
DX: S82.391D Other fracture of lower end of right tibia, subsequent encounter for closed fracture with routine healing (principal); S82.64XA Nondisplaced fracture of lateral malleolus of right fibula, initial encounter for closed fracture; X58.XXXD Exposure to other specified factors, subsequent encounter
CPT/HCPCS: 73590

== ENCOUNTER 2022-07-24 17:00 | Inpatient (IN) | payer BC, SELFPAY ==
[2022-07-24] VITALS (8 sets, daily range): BP systolic 118–175; BP diastolic 61–98; PULSE 68–89; RESP 16–18; TEMP 36.8
[2022-07-24 17:58] LABS: HCT 33.1 % (36.0-46.0); HGB 10.6 g/dL (11.2-15.7); MCH 29.1 pg (27.0-33.0); MCV 91 fL (80-95); MPV 13.5 fL (8.0-11.0); Platelet Count 156 10^3/uL (130-400); RBC 3.64 10^6/uL (3.93-5.22); RDW 13.8 % (11.7-14.6); RDW-SD 45.6 fL; WBC 9.75 10^3/uL (4.4-10.8)
[2022-07-24 18:13] LABS: ALT 49 U/L (14-59); AST 26 U/L (15-37); Albumin 2.6 g/dL (3.4-5.0); Alkaline Phosphatase 144 U/L (46-116); Anion Gap 10.5 mmol/L (3-11); BUN 21 mg/dL (7-18); Bilirubin, Total 0.3 mg/dL (0.2-1.0); CO2 23.5 mmol/L (21.0-32.0); CREATININE 1.1 mg/dL (0.55-1.02); Calcium 8.8 mg/dL (8.5-10.1); Chloride 106 mmol/L (98-107); Estimated GFR 64.34 (mL/min/1.73m2); Glucose 81 mg/dL (74-106); Sodium 140 mmol/L (136-145); Total Protein 6.7 g/dL (6.4-8.2); Uric Acid 5.4 mg/dL (2.6-6.0)
[2022-07-24 18:15] LABS: COMMENT (LAB VIEW ONLY) 117.44 mg/dL; PROTEIN 23.1 mg/dL; Prot/Crea Ur Ratio 0.19
[2022-07-24] MEDS: NIFEdipine 10 MG CAP PO (18:40)
[2022-07-24] MEDS: Acetaminophen 325 MG TAB 650 MG PO ×2 (18:41→22:40)
--- NOTE | 2022-07-24 18:53 | HPE_ITS ---
Date of service: 07/24/22 Time of Service: 19:26 Assessment and Plan Assessment and plan (1) Pre-eclampsia: Status: Acute Assessment and plan: Regular BP monitoring. PO Nifedipine given for severely elevated BP with good response. Will start Mag sulfate 6g loading dose, then 1g/hr maintenance due to elevated creatinine (1.1). Will check Mag level 6hrs after start and adjust accordingly. Awaiting the rest of the blood work results. Will recheck cervix and start pitocin for labor induction if no cervical change. OB-HPI Labor/Delivery History of Present Illness Reason for Visit: Elevated BP Chief Complaint: Signs/Symptoms Gestational HTN , Associated Signs and Symptoms of GestationalHTN: Elevated BPs, headache, edema. ROCKY Calculator Estimated Delivery Date Method Current WG Current Estimate 08/08/22 LMP (Certain) 37w 6d Other Estimates 08/10/22 Ultrasound #1 37w 4d Comments: Pt comes to the center today after having a significant elevated BP at her ortho appt. She reports not feeling well for the past few days. She has had consistent diarrhea and some nausea. She has a mild headache but it's isn't too bad. She missed her 4:30 tylenol dose. She denies visual changes. She does report increased swelling in her left leg today though it usually improves when she can rest it and she had several appts today. Her right leg is in a boot due to recent tib/fib fracture. She reports some abdominal pressure but no regular uncomfortable contractions. No LOF, though some increased discharge. No bleeding. Good movement. History of Present Expected Delivery Route/Plan - CNM FOB/aiden Daily (his first child) BB Specific Issues/Plan 1. AMA >40; [place] [facility] [place] - Weekly NST with GIANA, or twice weekly NST or Weekly BPP - Induction between 39 and 39.6 - US 34 week: 53%ile - ASA - cfDNA low prob x5 male, CF negative 2. ADHD no meds 3. Has umbilical hernia, may need repair PP 4. Anxiety - citalopram 10 mg PO daily- stopped taking 02/2022 5. GDM, diet controlled: (3 hr GTT, F 96, 1h 187, 2h 150, 3h 99). Finger sticks, Dietary 6. PEC -Induction Review of Systems Constitutional Constitutional: Reports system reviewed and no additional complaints, except as documented Comments: In general she does not feel well the past few days. Gastrointestinal Gastrointestinal: Reports heartburn, Reports diarrhea, Reports nausea and Denies vomiting Genitourinary Genitourinary: Reports system reviewed and no additional complaints, except as documented Musculoskeletal Comments: No regular contractions Neurologic Comments: Reports a mild headache this afternoon. Did not take her 4:30pm dose of tylenol. Psychiatric Comments: Feeling more anxious PFSH All Active Problems (Updated 07/24/22 @ 19:18 by Selin Hess MD) Pre-eclampsia (Acute) Anxiety (Chronic) (Acute) Advanced maternal age in multigravida (Acute) Family history of thyroid disease in mother (Acute) Gestational diabetes mellitus (GDM) affecting (Acute) 3 hour test F96, 1 h 187, 2h 150, 3h 99 SUSSY (stress urinary incontinence, female) (Acute) Swelling of left foot (Acute) Closed fracture of right tibia and fibula (Acute 07/12/22) Fracture of posterior malleolus of right tibia (Acute 07/12/22) Medical History Yeast vaginitis Surgical History Repair of umbilical hernia 2011 [facility] S/P laparoscopy Family History Father Diabetes Hypertension Mother Thyroid disorder Osteoporosis Social History Smoking/Tobacco Use Status: Never Smoking risk assessment performed?: Yes Alcohol Intake: never Drug use: Never Substance use type: does not use 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 Date GA/Weeks # Preg Succ Route Wgt Sex Labor Lgth Anesth esia Location Prov [facility] [address] 01/12/05 39 No Yes vaginal 6 lb 8 oz [facility] [place] Delivery Date: 01/12/05 Last Updated by: Ashlyn Blake CNM SROM X 12 hours then augmentation with delivery 6 hours later. Meds Allergies and Home Medications Allergies Allergy/AdvReac Type Severity Reaction Status Date / Time No Known Allergies Allergy Verified 07/24/22 16:00 Home Medications Medication Instructions Recorded Confirmed Type prenat.vits,diana,keb-iaxn-lfwug 1 tab PO DAILY 12/06/21 07/24/22 History aspirin 81 mg capsule 81 mg PO DAILY 02/16/22 07/24/22 History ondansetron HCl 4 mg tablet 4 mg PO Q6H PRN nausea and 03/03/22 07/24/22 Rx vomiting #30 tabs cetirizine 10 mg capsule (Zyrtec) 10 mg PO DAILY PRN 03/16/22 07/24/22 History alcohol swabs (Alcohol Pads) 1 pad topical .4 times daily #200 05/17/22 07/24/22 Rx ea blood sugar diagnostic (FreeStyle #100 ea 05/17/22 07/24/22 Rx Lite Strips) blood-glucose meter (FreeStyle #1 ea 05/17/22 07/24/22 Rx Lite Meter kit) lancets 28 gauge (FreeStyle #100 ea 05/17/22 07/24/22 Rx Lancets) oxycodone 5 mg tablet 5 - 10 mg PO Q4H PRN PRN pain #30 07/17/22 07/24/22 Rx tabs enoxaparin 40 mg/0.4 mL 40 mg (0.4 mL) subcut DAILY #6 mL 07/18/22 07/24/22 Rx subcutaneous syringe (Lovenox) Exam Physical Exam Vital signs: Temp Pulse Resp BP 98.2 F 68 18 168/80 H 07/24/22 18:13 07/24/22 18:13 07/24/22 18:13 07/24/22 18:13 Vital Signs Reviewed: Yes Detailed Labor and Delivery Exam Dilation: 2 Effacement (%): 60 station: -3 Cervix position: anterior Consistency: medium Harrison Score: Cervical Points Exam 0 1 2 3 Dilation Closed 1-2cm 3-4 cm 5-6cm Effacement 0-30% 40-50% 60-70% 80% Consistency Firm Medium Soft Station -3 -2 -1,0 +1,+2 Position Posterior Mid Anterior HARRISON Score(Cervical Ripeness Score): 6 Amniotic Membrane Status: Intact Contraction Frequency(min): q5 min Fetus A Heart Rate Baseline: 155 Monitor Accelerations: 15 X 15 Monitor Decelerations: None Variability: Moderate (6-25 BPM) Presentation: Vertex (Confirmed by bedside sono) Detailed HEENT Exam Head: Present normocephalic and atraumatic Abdominal Exam Abdominal Exam: Abnormal (Mild epigastric tenderness. No RUQ tenderness) Detailed Abdominal Exam Comments: gravid, nontender Detailed Extremities Exam Comments: 2+ LLE swelling. Boot on the right leg. 3+ DTRs on the left leg. Detailed Neurological Exam Neurological: Present alert, oriented X3 and CN II-XII intact DetailedPsychiatric Exam Psychiatric: Present normal affect, normal thought process and cooperative Results Results Group Beta Strep: Negative Abnormal Lab Findings: Abnormal Labs 07/24/22 07/24/22 17:42 17:42 RBC 3.64 L Hgb 10.6 L Hct 33.1 L MPV 13.5 H BUN 21 H Creatinine 1.1 H Alkaline Phosphatase 144 H Albumin 2.6 L Risk Assessment Risk for Shoulder Dystocia Historical/Initial OB: NEGATIVE FOR: Pelvic Abnormality, Pre- BMI>30, Previous Shoulder Dystocia or Previous Macrosomia Date/Initial: 01/19/22: Risk for Pre-Eclampsia Yes, if one or more: NEGATIVE FOR: Hx Pre-E/Gest HTN, Chronic HTN, Multiple Gestation, Pre-gestational DM, Renal Disease, Systemic Lupus or APA Syndrome Yes, if 2 or more: POSITIVE FOR: Age>= 35 yrs and >10yr btwn pregnancies; NEGATIVE FOR: Nulliparity, BMI>30, ethinicty, Mother/Sister w/ Pre-E or Previous IUGR Risk for Post- Hemorrhage Initial: NEGATIVE FOR: Multiple Gestation, Previous PPH, Known Clotting Deficiency, Grand Multiparity or Anticoagulation Risks Reviewed Risks Reviewed Upon Admission: Yes
[2022-07-24] MEDS: MAGNESIUM SULFATE 20 GM/500 ML BAG IV (19:58)
[2022-07-24] MEDS: Normal Saline 500 ML IV ×2 (20:00→21:01)
[2022-07-24 20:31] LABS: Source Nasal/Nares
[2022-07-24 21:01] LABS: Magnesium 1.8 mg/dL (1.8-2.4)
[2022-07-24 21:02] LABS: COVID-19 PCR Negative (Negative)
--- NOTE | 2022-07-24 22:28 | PGE_ITS ---
Date of service: 07/24/22 Time of Service: 22:29 Pelvic Exam Dilation: 2 Effacement (%): 60 station: -3 Contractions Contraction Frequency(min): q5min Fetus A Heart Rate Baseline: 150 Presentation: Vertex Variability: Moderate (6-25 BPM) Categories: Category I Accelerations: 15 X 15 Decelerations: None Assessment and Plan Assessment and plan (1) Pre-eclampsia: Status: Acute Assessment and plan: Will continue mag. Pt will nap for a few hours and then start pitocin and try getting out of bed on the cube. Continue to monitor BPs. Objective Abnormal lab results 07/24/22 07/24/22 Range/Units 17:42 17:42 RBC 3.64 L (3.93-5.22) 10^6/uL Hgb 10.6 L (11.2-15.7) g/dL Hct 33.1 L (36.0-46.0) % MPV 13.5 H (8.0-11.0) fL BUN 21 H (7-18) mg/dL Creatinine 1.1 H (0.55-1.02) mg/dL Alkaline Phosphatase 144 H (46-116) U/L Albumin 2.6 L (3.4-5.0) g/dL Temp Pulse Resp BP 98.2 F 77 18 133/79 07/24/22 18:13 07/24/22 22:10 07/24/22 18:13 07/24/22 22:10 Laboratory Results WBC 9.75 10^3/uL (4.4-10.8) 07/24/22 17:42 RBC 3.64 10^6/uL (3.93-5.22) L 07/24/22 17:42 Hgb 10.6 g/dL (11.2-15.7) L 07/24/22 17:42 Hct 33.1 % (36.0-46.0) L 07/24/22 17:42 MCV 91 fL (80-95) 07/24/22 17:42 MCH 29.1 pg (27.0-33.0) 07/24/22 17:42 MCHC 32.0 % (32.0-36.0) 07/24/22 17:42 RDW 13.8 % (11.7-14.6) 07/24/22 17:42 Plt Count 156 10^3/uL (130-400) 07/24/22 17:42 MPV 13.5 fL (8.0-11.0) H 07/24/22 17:42 Sodium 140 mmol/L (136-145) 07/24/22 17:42 Potassium 4.0 mmol/L (3.5-5.1) 07/24/22 17:42 Chloride 106 mmol/L (98-107) 07/24/22 17:42 Carbon Dioxide 23.5 mmol/L (21.0-32.0) 07/24/22 17:42 Anion Gap 10.5 mmol/L (3-11) 07/24/22 17:42 BUN 21 mg/dL (7-18) H 07/24/22 17:42 Creatinine 1.1 mg/dL (0.55-1.02) H 07/24/22 17:42 Est GFR (CKD-EPI 2020) 64.34 (mL/min/1.73m2) 07/24/22 17:42 Glucose 81 mg/dL (74-106) 07/24/22 17:42 Uric Acid 5.4 mg/dL (2.6-6.0) 07/24/22 17:42 Calcium 8.8 mg/dL (8.5-10.1) 07/24/22 17:42 Magnesium 1.8 mg/dL (1.8-2.4) 07/24/22 17:42 Total Bilirubin 0.3 mg/dL (0.2-1.0) 07/24/22 17:42 AST 26 U/L (15-37) 07/24/22 17:42 ALT 49 U/L (14-59) 07/24/22 17:42 Alkaline Phosphatase 144 U/L (46-116) H 07/24/22 17:42 Total Protein 6.7 g/dL (6.4-8.2) 07/24/22 17:42 Albumin 2.6 g/dL (3.4-5.0) L 07/24/22 17:42 Ur Random Creatinine 117.44 mg/dL 07/24/22 17:42 U Random Total Protein 23.1 mg/dL 07/24/22 17:42 U [place] Prot/Creat Ratio 0.19 07/24/22 17:42 COVID-19 Source Nasal/Nares 07/24/22 20:00 SARS-CoV-2 (PCR) Negative (Negative) 07/24/22 20:00 Patient ABO/Rh A Positive 07/24/22 17:42 Antibody Screen NEGATIVE 07/24/22 17:42 Objective Narrative Objective Narrative: BPs have improved s/p nifedipine. Labs all normal except elevated creatinine. Subjective Interval history since last seen: Pt reports continued mild headache. She feels very tired right now. Diarrhea has improved. Feels some contractions more strongly here and there. Results Hemoglobin/Hematocrit: Hgb 10.6 g/dL (11.2-15.7) L 07/24/22 17:42 Hct 33.1 % (36.0-46.0) L 07/24/22 17:42 Abnormal Lab Findings: Abnormal Labs 07/24/22 07/24/22 17:42 17:42 RBC 3.64 L Hgb 10.6 L Hct 33.1 L MPV 13.5 H BUN 21 H Creatinine 1.1 H Alkaline Phosphatase 144 H Albumin 2.6 L
[2022-07-25] VITALS (118 sets, daily range): BP systolic 68–175; BP diastolic 41–103; PULSE 46–133; RESP 16–18; TEMP 36.5–37.4; O2SAT 96–100; BMI 30.9
--- NOTE | 2022-07-25 00:44 | NUR.NOTE ---
Patient requests that she be able to rest awhile longer before the Pitocin gets started.
--- NOTE | 2022-07-25 03:44 | NUR.NOTE ---
Pt to commode for 300 cc of light brown semi liquid, foul smelling stool, with some bright red blood also in it. perineum inspected and no bloody show evident. No blood appeared on the cleansing wipes used to wipe griselda area. Pt. states she has had diarrhea for 2-3 days
[2022-07-25 03:45] LABS: Magnesium 3.6 mg/dL (1.8-2.4)
[2022-07-25] MEDS: Oxytocin/Normal Saline 30 UNIT/500 ML BAG 2 UNITS IV (04:04)
[2022-07-25] MEDS: Acetaminophen 325 MG TAB 650 MG PO ×2 (04:47→12:16)
[2022-07-25 05:01] LABS: C Diff PCR Negative (Negative)
[2022-07-25] MEDS: Fluticasone NASAL SPRAY 16 GM BTL NS (05:03)
--- NOTE | 2022-07-25 06:33 | W.PM.OBNL1 ---
Date of service: 07/25/22 Time of Service: 06:33 Pelvic Exam Dilation: 5 Effacement (%): 90 station: -1 Cervix Position: anterior Consistency: soft Comments: Cervix stretched to 7cm with contraction Fetus A Amniotic Membrane Status: Ruptured Rupture Method: Artifical (clear with slight blood) Assessment and Plan Assessment and plan (1) Pre-eclampsia: Status: Acute Assessment and plan: BPs stable. Mag level 3.6 - will increase mag to 2g/hr. Headache resolved s/p rest. Stool sample neg for C. Diff. Progressing with labor. Pit at 6 and will decrease to 2. AROM. Await delivery. Objective Abnormal lab results 07/24/22 07/24/22 07/25/22 Range/Units 17:42 17:42 03:25 RBC 3.64 L (3.93-5.22) 10^6/uL Hgb 10.6 L (11.2-15.7) g/dL Hct 33.1 L (36.0-46.0) % MPV 13.5 H (8.0-11.0) fL BUN 21 H (7-18) mg/dL Creatinine 1.1 H (0.55-1.02) mg/dL Magnesium 3.6 H (1.8-2.4) mg/dL Alkaline Phosphatase 144 H (46-116) U/L Albumin 2.6 L (3.4-5.0) g/dL Temp Pulse Resp BP Pulse Ox 98.2 F 80 16 137/75 97 07/25/22 03:28 07/25/22 05:57 07/25/22 00:41 07/25/22 05:57 07/25/22 05:53 Laboratory Results WBC 9.75 10^3/uL (4.4-10.8) 07/24/22 17:42 RBC 3.64 10^6/uL (3.93-5.22) L 07/24/22 17:42 Hgb 10.6 g/dL (11.2-15.7) L 07/24/22 17:42 Hct 33.1 % (36.0-46.0) L 07/24/22 17:42 MCV 91 fL (80-95) 07/24/22 17:42 MCH 29.1 pg (27.0-33.0) 07/24/22 17:42 MCHC 32.0 % (32.0-36.0) 07/24/22 17:42 RDW 13.8 % (11.7-14.6) 07/24/22 17:42 Plt Count 156 10^3/uL (130-400) 07/24/22 17:42 MPV 13.5 fL (8.0-11.0) H 07/24/22 17:42 Sodium 140 mmol/L (136-145) 07/24/22 17:42 Potassium 4.0 mmol/L (3.5-5.1) 07/24/22 17:42 Chloride 106 mmol/L (98-107) 07/24/22 17:42 Carbon Dioxide 23.5 mmol/L (21.0-32.0) 07/24/22 17:42 Anion Gap 10.5 mmol/L (3-11) 07/24/22 17:42 BUN 21 mg/dL (7-18) H 07/24/22 17:42 Creatinine 1.1 mg/dL (0.55-1.02) H 07/24/22 17:42 Est GFR (CKD-EPI 2020) 64.34 (mL/min/1.73m2) 07/24/22 17:42 Glucose 81 mg/dL (74-106) 07/24/22 17:42 Uric Acid 5.4 mg/dL (2.6-6.0) 07/24/22 17:42 Calcium 8.8 mg/dL (8.5-10.1) 07/24/22 17:42 Magnesium 3.6 mg/dL (1.8-2.4) H 07/25/22 03:25 Total Bilirubin 0.3 mg/dL (0.2-1.0) 07/24/22 17:42 AST 26 U/L (15-37) 07/24/22 17:42 ALT 49 U/L (14-59) 07/24/22 17:42 Alkaline Phosphatase 144 U/L (46-116) H 07/24/22 17:42 Total Protein 6.7 g/dL (6.4-8.2) 07/24/22 17:42 Albumin 2.6 g/dL (3.4-5.0) L 07/24/22 17:42 Ur Random Creatinine 117.44 mg/dL 07/24/22 17:42 U Random Total Protein 23.1 mg/dL 07/24/22 17:42 U [place] Prot/Creat Ratio 0.19 07/24/22 17:42 Stl C.difficile Tox PCR Negative (Negative) 07/25/22 02:55 COVID-19 Source Nasal/Nares 07/24/22 20:00 SARS-CoV-2 (PCR) Negative (Negative) 07/24/22 20:00 Patient ABO/Rh A Positive 07/24/22 17:42 Antibody Screen NEGATIVE 07/24/22 17:42 Subjective Interval history since last seen: Pt feeling more pressure with contractions. Coping ok at moment. Results Hemoglobin/Hematocrit: Hgb 10.6 g/dL (11.2-15.7) L 07/24/22 17:42 Hct 33.1 % (36.0-46.0) L 07/24/22 17:42 Abnormal Lab Findings: Abnormal Labs 07/24/22 07/24/22 07/25/22 17:42 17:42 03:25 RBC 3.64 L Hgb 10.6 L Hct 33.1 L MPV 13.5 H BUN 21 H Creatinine 1.1 H Magnesium 3.6 H Alkaline Phosphatase 144 H Albumin 2.6 L
--- NOTE | 2022-07-25 07:16 | W.PM.OBNL1 ---
Date of service: 07/25/22 Time of Service: 07:19 Pelvic Exam Dilation: 7 Effacement (%): 90 station: -1 Position: OP Cervix Position: anterior Consistency: soft Contractions Contraction Frequency(min): q2-3 Fetus A Monitor: External (US) Heart Rate Baseline: 130 Presentation: Vertex Variability: Moderate (6-25 BPM) Categories: Category I Accelerations: 15 X 15 Decelerations: None Assessment and Plan Assessment and plan (1) Pre-eclampsia: Status: Acute Assessment and plan: BPs stable. Repeat labs at 9:30. Continued labor progression. Pitocin @2. Anticipate NVD. Objective Abnormal lab results 07/24/22 07/24/22 07/25/22 Range/Units 17:42 17:42 03:25 RBC 3.64 L (3.93-5.22) 10^6/uL Hgb 10.6 L (11.2-15.7) g/dL Hct 33.1 L (36.0-46.0) % MPV 13.5 H (8.0-11.0) fL BUN 21 H (7-18) mg/dL Creatinine 1.1 H (0.55-1.02) mg/dL Magnesium 3.6 H (1.8-2.4) mg/dL Alkaline Phosphatase 144 H (46-116) U/L Albumin 2.6 L (3.4-5.0) g/dL Temp Pulse Resp BP Pulse Ox 98.2 F 80 16 137/75 97 07/25/22 03:28 07/25/22 05:57 07/25/22 00:41 07/25/22 05:57 07/25/22 05:53 Laboratory Results WBC 9.75 10^3/uL (4.4-10.8) 07/24/22 17:42 RBC 3.64 10^6/uL (3.93-5.22) L 07/24/22 17:42 Hgb 10.6 g/dL (11.2-15.7) L 07/24/22 17:42 Hct 33.1 % (36.0-46.0) L 07/24/22 17:42 MCV 91 fL (80-95) 07/24/22 17:42 MCH 29.1 pg (27.0-33.0) 07/24/22 17:42 MCHC 32.0 % (32.0-36.0) 07/24/22 17:42 RDW 13.8 % (11.7-14.6) 07/24/22 17:42 Plt Count 156 10^3/uL (130-400) 07/24/22 17:42 MPV 13.5 fL (8.0-11.0) H 07/24/22 17:42 Sodium 140 mmol/L (136-145) 07/24/22 17:42 Potassium 4.0 mmol/L (3.5-5.1) 07/24/22 17:42 Chloride 106 mmol/L (98-107) 07/24/22 17:42 Carbon Dioxide 23.5 mmol/L (21.0-32.0) 07/24/22 17:42 Anion Gap 10.5 mmol/L (3-11) 07/24/22 17:42 BUN 21 mg/dL (7-18) H 07/24/22 17:42 Creatinine 1.1 mg/dL (0.55-1.02) H 07/24/22 17:42 Est GFR (CKD-EPI 2020) 64.34 (mL/min/1.73m2) 07/24/22 17:42 Glucose 81 mg/dL (74-106) 07/24/22 17:42 Uric Acid 5.4 mg/dL (2.6-6.0) 07/24/22 17:42 Calcium 8.8 mg/dL (8.5-10.1) 07/24/22 17:42 Magnesium 3.6 mg/dL (1.8-2.4) H 07/25/22 03:25 Total Bilirubin 0.3 mg/dL (0.2-1.0) 07/24/22 17:42 AST 26 U/L (15-37) 07/24/22 17:42 ALT 49 U/L (14-59) 07/24/22 17:42 Alkaline Phosphatase 144 U/L (46-116) H 07/24/22 17:42 Total Protein 6.7 g/dL (6.4-8.2) 07/24/22 17:42 Albumin 2.6 g/dL (3.4-5.0) L 07/24/22 17:42 Ur Random Creatinine 117.44 mg/dL 07/24/22 17:42 U Random Total Protein 23.1 mg/dL 07/24/22 17:42 U [place] Prot/Creat Ratio 0.19 07/24/22 17:42 Stl C.difficile Tox PCR Negative (Negative) 07/25/22 02:55 COVID-19 Source Nasal/Nares 07/24/22 20:00 SARS-CoV-2 (PCR) Negative (Negative) 07/24/22 20:00 Patient ABO/Rh A Positive 07/24/22 17:42 Antibody Screen NEGATIVE 07/24/22 17:42 Subjective Interval history since last seen: Feeling more pressure with contractions Results Hemoglobin/Hematocrit: Hgb 10.6 g/dL (11.2-15.7) L 07/24/22 17:42 Hct 33.1 % (36.0-46.0) L 07/24/22 17:42 Abnormal Lab Findings: Abnormal Labs 07/24/22 07/24/22 07/25/22 17:42 17:42 03:25 RBC 3.64 L Hgb 10.6 L Hct 33.1 L MPV 13.5 H BUN 21 H Creatinine 1.1 H Magnesium 3.6 H Alkaline Phosphatase 144 H Albumin 2.6 L
--- NOTE | 2022-07-25 07:57 | ANES.PREOP_ITS ---
General Info Date of Service Date Performed: 07/25/22 Height: 5 ft 4 in Weight: 81.647 kg Body Mass Index (BMI): 30.9 Meds Allergies and Home Medications Allergies Allergy/AdvReac Type Severity Reaction Status Date / Time No Known Allergies Allergy Verified 07/24/22 16:00 Home Medication Medication Instructions Recorded prenat.vits,diana,yzc-cjpa-mevjh 1 tab PO DAILY 12/06/21 aspirin 81 mg capsule 81 mg PO DAILY 02/16/22 ondansetron HCl 4 mg tablet 4 mg PO Q6H PRN nausea and 03/03/22 vomiting #30 tabs cetirizine 10 mg capsule (Zyrtec) 10 mg PO DAILY PRN 03/16/22 alcohol swabs (Alcohol Pads) 1 pad topical .4 times daily #200 05/17/22 ea blood sugar diagnostic (FreeStyle #100 ea 05/17/22 Lite Strips) blood-glucose meter (FreeStyle #1 ea 05/17/22 Lite Meter kit) lancets 28 gauge (FreeStyle #100 ea 05/17/22 Lancets) oxycodone 5 mg tablet 5 - 10 mg PO Q4H PRN PRN pain #30 07/17/22 tabs enoxaparin 40 mg/0.4 mL 40 mg (0.4 mL) subcut DAILY #6 mL 07/18/22 subcutaneous syringe (Lovenox) Current Visit Medications: Current Medications Generic Name Dose Route Start Last Admin Trade Name Freq PRN Reason Stop Dose Admin Acetaminophen 650 mg 07/24/22 17:34 07/25/22 04:47 Acetaminophen 325 Mg Tab PO 650 mg Q4H PRN PRN Administration Acetaminophen 650 mg 07/24/22 19:50 07/24/22 22:40 Acetaminophen 325 Mg Tab PO 650 mg Q4H PRN PRN Administration Bupivacaine HCl 0 ml 07/25/22 07:49 Bupivacaine 0.25% Pres-Free 10 Ml Vial EP 07/25/22 07:50 NOW ONE Fentanyl 0 mcg 07/25/22 07:49 Fentanyl 100 Mcg/2 Ml Vial EP 07/25/22 07:50 NOW ONE Fentanyl/Ropivacaine 200 ml 07/25/22 08:00 Fentanyl/Ropivacaine 2 Mcg/Ml And 0.1% 200 Ml [place] EP DIRECTED BELL Fluticasone Propionate 0 gm 07/25/22 04:26 07/25/22 05:03 Fluticasone Nasal [place] 16 Gm Btl NS 2 sprays DAILY PRN Administration Sodium Chloride 500 mls @ 0 mls/hr 07/24/22 18:28 07/24/22 21:01 Saline 500ml Bag IV 500 mls/hr PRN PRN Administration As Directed Magnesium Sulfate 20 gm in 500 mls @ 25 mls/hr 07/24/22 18:45 07/25/22 06:44 IV 1.5 gm/hr INFUSION BELL 37.5 mls/hr Titration Protocol 1 GM/HR Oxytocin/Sodium Chloride 30 unit in 500 mls @ 2 mls/hr 07/24/22 22:30 07/25/22 07:30 Pitocin/Normal Saline IV 1 milliunits/min INFUSION BELL 1 mls/hr Titration Protocol 2 MILLIUNITS/MIN Ringer's Solution 1,000 mls @ 50 mls/hr 07/25/22 04:15 IV INFUSION BELL Sodium Chloride 1,000 mls @ 100 mls/hr 07/25/22 04:15 Saline 1000ml Bag IV INFUSION BELL Ringer's Solution 500 mls @ 500 mls/hr 07/25/22 07:49 IV 07/25/22 08:48 BOLUS ONE IV Miscellaneous Supplies 1 each 07/24/22 18:30 Iv Access IV DIRECTED BELL Labetalol HCl 200 mg 07/24/22 20:00 07/24/22 22:41 Labetalol 100 Mg Tab PO Not Given BID BELL Sodium Chloride 0 ml 07/24/22 18:28 Normal Saline Flush 10 Ml Syr IVP PRN PRN PFSH Active Problems Active Problems: Problem Status Onset Code Anxiety Z34.90 Advanced maternal age in multigravida O09.529 Family history of thyroid disease in mother Z83.49 Gestational diabetes mellitus (GDM) affecting O24.419 SUSSY (stress urinary incontinence, female) N39.3 Swelling of left foot M79.89 Closed fracture of right tibia and fibula 07/12/22 S82.201A, S82.401A Fracture of posterior malleolus of right tibia 07/12/22 S82.391A Pre-eclampsia O14.90 Medical History Medical History Yeast vaginitis Surgical History Surgical History Repair of umbilical hernia 2011 [facility] S/P laparoscopy Tobacco Smoking/Tobacco Use Status: Never Alcohol Alcohol Intake: never Substance Use Substance use: Never Substance use type: does not use Prental History History 2 Para 1 Hx # Term Pregnancies 1 Multiple births 0 Hx # Pregnancies 0 Ectopic pregnancies 0 AB induced 0 Hx Number of Living Children 1 AB spontaneous 0 Past Pregnancies Del. Date GA/Weeks # Preg Succ Route Wgt Sex Labor Lgth Anesth esia Location Prov Complic 01/12/05 39 No Yes vaginal 2948.35 g Female 6hr [place], [place] Delivery Date: 01/12/05 Last Updated by: Ashlyn Blake CNM SROM X 12 hours then augmentation with delivery 6 hours later. Vital Signs and Lab Results Vital Signs Most Recent Vital Signs in EMR: Most Recent Vital Signs Temp Pulse Resp BP Pulse Ox 36.8 C 91 H 16 133/67 99 07/25/22 03:28 07/25/22 07:26 07/25/22 00:41 07/25/22 07:25 07/25/22 07:26 Lab Results 07/24/22 17:42 07/24/22 17:42 Blood Type / Crossmatch: Patient ABO/Rh A Positive 07/24/22 Antibody Screen NEGATIVE 07/24/22 Complete Blood Count: White Blood Count 9.75 10^3/uL (4.4-10.8) 07/24/22 17:42 Red Blood Count 3.64 10^6/uL (3.93-5.22) L 07/24/22 17:42 Hemoglobin 10.6 g/dL (11.2-15.7) L 07/24/22 17:42 Hematocrit 33.1 % (36.0-46.0) L 07/24/22 17:42 Platelet Count 156 10^3/uL (130-400) 07/24/22 17:42 Complete Metabolic Panel: Sodium 140 mmol/L (136-145) 07/24/22 17:42 Potassium 4.0 mmol/L (3.5-5.1) 07/24/22 17:42 Chloride 106 mmol/L (98-107) 07/24/22 17:42 Carbon Dioxide 23.5 mmol/L (21.0-32.0) 07/24/22 17:42 BUN 21 mg/dL (7-18) H 07/24/22 17:42 Creatinine 1.1 mg/dL (0.55-1.02) H 07/24/22 17:42 Est GFR (CKD-EPI 2020) 64.34 (mL/min/1.73m2) 07/24/22 17:42 Magnesium 3.6 mg/dL (1.8-2.4) H 07/25/22 03:25 Calcium 8.8 mg/dL (8.5-10.1) 07/24/22 17:42 Albumin 2.6 g/dL (3.4-5.0) L 07/24/22 17:42 Glucose 81 mg/dL (74-106) 07/24/22 17:42 Liver Function Panel: Alanine Aminotransferase (ALT/SGPT) 49 U/L (14-59) 07/24/22 17: 42 Aspartate Amino Transf (AST/SGOT) 26 U/L (15-37) 07/24/22 17:42 Coagulation Panel: No Data to Display Cardiac Panel: No Data to Display Arterial Blood Gas: No Data to Display Venous Blood Gas: No Data to Display Pancreas Panel: No Data to Display Thyroid Panel: No Data to Display Infectious Disease: Coronavirus (COVID-19)(PCR) Negative (Negative) 07/24/22 20:00 Coronavirus 2019 Source Nasal/Nares 07/24/22 20:00 Blood Cultures: No Data to Display Toxicology Panel: No Data to Display Panel: No Data to Display Anesthesia Assessment and Plan Anesthesia History Personal History: No History of Anesthesia Complications Family History: No Family History of Anesthesia Complications Exercise Tolerance Exercise Tolerance: Metabolic Equivalents>4 Pertinent Negatives Pertinent Negatives: No Major Cardiovascular Symptoms or Complaints, No Major Pulmonary Symptoms or Complaints and No History of CVA/TIA Cardiac & Pulmonary Exam Cardiac Exam: Normal S1/S2 Heart Sounds Pulmonary Exam: Clear Bilateral Breath Sounds Implantable Cardiac Device Does patient have a Pacemaker or an ICD?: No Airway Exam Known Difficult Airway: No Mallampati Class: 2 Mouth Opening: Normal (> 3cm) Thyromental Distance: Greater than 3 cm Neck Range of Motion: Full ROM Neck Circumference: Normal Teeth Condition: Normal Dentition ASA Classification ASA Score: ASA 2 Emergency Case?: No NPO Status NPO Status: Full Stomach Status Status: Confirmed Anesthesia Plan Resuscitation Status: Full Code Anesthesia Technique: Epidural Anesthesia Airway Planned: Natural Airway Pain Management: Epidural Monitors Used: Standard Monitors
[2022-07-25] MEDS: Lactated Ringers 1,000 ML 999 ML IV (08:20)
[2022-07-25] MEDS: FentaNYL/ROPIvacaine 2 mcg/ml and 0.1% 200 ML CADD Cassette EP (08:32)
--- NOTE | 2022-07-25 08:44 | W.ANESNEU ---
Epidural/Spinal Catheter Date Performed: 07/25/22 Procedure Start: 08:20 Procedure Stop: 08:50 Requesting Provider: Selin Hess Procedure Location: Obstetrics Reason Performed: Labor Epidural Standard Monitors Applied: Blood Pressure, SpO2 and See EMR for corresponding vital signs Patient Position: Sitting Sedation Given (Indicate Dose Given): No Sedation given Patient Mental Status: Awake Sterility: Hand Hygiene, Surgical Cap, Surgical Mask, Sterile Gloves, Sterile Drape/Sheet and Chlorhexidine Procedure Location: L3-L4 Interspace Epidural Needle: Tuohy 18 Gauge Needle Length: 3.5 Inch Needle Approach: Midline Epidural Procedure: Skin Prepped, Sterile Drape Placed, 1% Lidocaine to skin and subcutaneous tissue with 25G needle, Tuohy Needle placed, MINO to Saline Used, Epidural Catheter Placed, Negative Heme, Negative CSF Flow and Tuohy Needle Removed Catheter Placed?: Catheter Placed Test Dose (Indicate Dose Given): 3ml 1.5% Lidocaine with 1:200K Epinephrine Given and Negative Test Dose Loss of Resistance Depth (cm): 5 Catheter depth at skin (cm): 12 Dressing: [place] Dressing Placed and Mastisol Used Epidural Provider Bolus (Indicate Dose Given): Total bolus dose given in 3-5 ml divided doses and Total Ropivacaine 0.1% with Fentanyl 2mcg/ml Given from pump. (ml) Dose:: 15 ml Additives (Indicate Dose Given ): None Infusion Medication: Medication Infusion Began Medication Infusion: Ropivacaine 0.1% with Fentanyl 2mcg/ml Maintenance Infusion Rate (ml/hour): 10 PCEA Bolus Dose (ml): 5 Post Procedure Pain score (0-10): 3 Block Level: N/A Paresthesia: None Ultrasound: Not Used Number of Attempts (See previous attempts in note section): 1 Procedure Tolerated: No Complications and Patient tolerated well Procedure Outcome: Successful Performed By: Yonatan Hobson
[2022-07-25] MEDS: Normal Saline 1,000 ML 50 ML IV (08:51)
--- NOTE | 2022-07-25 08:57 | W.PM.OBNL1 ---
Date of service: 07/25/22 Time of Service: 08:58 Pelvic Exam Dilation: 8 Effacement (%): 90 station: -2 Position: OP Cervix Position: anterior Consistency: soft Contractions Contraction Frequency(min): q4min Fetus A Heart Rate Baseline: 125 Presentation: Vertex Variability: Moderate (6-25 BPM) Categories: Category I Accelerations: 15 X 15 Decelerations: None Assessment and Plan Assessment and plan (1) Pre-eclampsia: Status: Acute Assessment and plan: COmfortable s/p epidural. Still asynclitic head position. Will try positioning. Pitocin to be restarted. FHT reassuring. Dr. Andrea to take over care of patient. Objective Abnormal lab results 07/24/22 07/24/22 07/25/22 Range/Units 17:42 17:42 03:25 RBC 3.64 L (3.93-5.22) 10^6/uL Hgb 10.6 L (11.2-15.7) g/dL Hct 33.1 L (36.0-46.0) % MPV 13.5 H (8.0-11.0) fL BUN 21 H (7-18) mg/dL Creatinine 1.1 H (0.55-1.02) mg/dL Magnesium 3.6 H (1.8-2.4) mg/dL Alkaline Phosphatase 144 H (46-116) U/L Albumin 2.6 L (3.4-5.0) g/dL Temp Pulse Resp BP Pulse Ox 98.2 F 94 H 16 138/79 100 07/25/22 03:28 07/25/22 08:54 07/25/22 00:41 07/25/22 08:53 07/25/22 08:54 Laboratory Results WBC 9.75 10^3/uL (4.4-10.8) 07/24/22 17:42 RBC 3.64 10^6/uL (3.93-5.22) L 07/24/22 17:42 Hgb 10.6 g/dL (11.2-15.7) L 07/24/22 17:42 Hct 33.1 % (36.0-46.0) L 07/24/22 17:42 MCV 91 fL (80-95) 07/24/22 17:42 MCH 29.1 pg (27.0-33.0) 07/24/22 17:42 MCHC 32.0 % (32.0-36.0) 07/24/22 17:42 RDW 13.8 % (11.7-14.6) 07/24/22 17:42 Plt Count 156 10^3/uL (130-400) 07/24/22 17:42 MPV 13.5 fL (8.0-11.0) H 07/24/22 17:42 Sodium 140 mmol/L (136-145) 07/24/22 17:42 Potassium 4.0 mmol/L (3.5-5.1) 07/24/22 17:42 Chloride 106 mmol/L (98-107) 07/24/22 17:42 Carbon Dioxide 23.5 mmol/L (21.0-32.0) 07/24/22 17:42 Anion Gap 10.5 mmol/L (3-11) 07/24/22 17:42 BUN 21 mg/dL (7-18) H 07/24/22 17:42 Creatinine 1.1 mg/dL (0.55-1.02) H 07/24/22 17:42 Est GFR (CKD-EPI 2020) 64.34 (mL/min/1.73m2) 07/24/22 17:42 Glucose 81 mg/dL (74-106) 07/24/22 17:42 Uric Acid 5.4 mg/dL (2.6-6.0) 07/24/22 17:42 Calcium 8.8 mg/dL (8.5-10.1) 07/24/22 17:42 Magnesium 3.6 mg/dL (1.8-2.4) H 07/25/22 03:25 Total Bilirubin 0.3 mg/dL (0.2-1.0) 07/24/22 17:42 AST 26 U/L (15-37) 07/24/22 17:42 ALT 49 U/L (14-59) 07/24/22 17:42 Alkaline Phosphatase 144 U/L (46-116) H 07/24/22 17:42 Total Protein 6.7 g/dL (6.4-8.2) 07/24/22 17:42 Albumin 2.6 g/dL (3.4-5.0) L 07/24/22 17:42 Ur Random Creatinine 117.44 mg/dL 07/24/22 17:42 U Random Total Protein 23.1 mg/dL 07/24/22 17:42 U [place] Prot/Creat Ratio 0.19 07/24/22 17:42 Stl C.difficile Tox PCR Negative (Negative) 07/25/22 02:55 COVID-19 Source Nasal/Nares 07/24/22 20:00 SARS-CoV-2 (PCR) Negative (Negative) 07/24/22 20:00 Patient ABO/Rh A Positive 07/24/22 17:42 Antibody Screen NEGATIVE 07/24/22 17:42 Subjective Interval history since last seen: Pt feeling more comfortable s/p epidural. Feeling discouraged. Results Hemoglobin/Hematocrit: Hgb 10.6 g/dL (11.2-15.7) L 07/24/22 17:42 Hct 33.1 % (36.0-46.0) L 07/24/22 17:42 Abnormal Lab Findings: Abnormal Labs 07/24/22 07/24/22 07/25/22 17:42 17:42 03:25 RBC 3.64 L Hgb 10.6 L Hct 33.1 L MPV 13.5 H BUN 21 H Creatinine 1.1 H Magnesium 3.6 H Alkaline Phosphatase 144 H Albumin 2.6 L
[2022-07-25 09:45] LABS: HCT 33.1 % (36.0-46.0); HGB 10.3 g/dL (11.2-15.7); MCH 28.5 pg (27.0-33.0); MCHC 31.1 % (32.0-36.0); MCV 91 fL (80-95); MPV 12.9 fL (8.0-11.0); Platelet Count 171 10^3/uL (130-400); RBC 3.62 10^6/uL (3.93-5.22); RDW-SD 46.3 fL; WBC 14.03 10^3/uL (4.4-10.8)
[2022-07-25 10:05] LABS: ALT 42 U/L (14-59); AST 28 U/L (15-37); Albumin 2.6 g/dL (3.4-5.0); Alkaline Phosphatase 146 U/L (46-116); Anion Gap 12.7 mmol/L (3-11); BUN 16 mg/dL (7-18); Bilirubin, Total 0.3 mg/dL (0.2-1.0); CO2 20.3 mmol/L (21.0-32.0); CREATININE 1.2 mg/dL (0.55-1.02); Calcium 7.9 mg/dL (8.5-10.1); Chloride 107 mmol/L (98-107); Estimated GFR 57.96 (mL/min/1.73m2); Glucose 96 mg/dL (74-106); Potassium 4.3 mmol/L (3.5-5.1); Sodium 140 mmol/L (136-145); Total Protein 6.5 g/dL (6.4-8.2)
[2022-07-25 10:06] LABS: Magnesium 5.1 mg/dL (1.8-2.4)
[2022-07-25] MEDS: Lactated Ringers 1,000 ML 75 ML IV (10:21)
--- NOTE | 2022-07-25 11:13 | W.PM.OBNL1 ---
Date of service: 07/25/22 Time of Service: 11:14 Informed Consent Informed Consent: Risk,Benefits,Alternatives Discussed (No need for additional intervention at this time.) and Other (Patient wishes to continue with current labor plan.) Contractions Monitor Mode: External Contraction Frequency(min): 4 Contraction Duration(sec): 60 Fetus A Heart Rate Baseline: 150 Variability: Moderate (6-25 BPM) Categories: Category I FHR Rhythm: Regular Characteristics: Normal Accelerations: 15 X 15 Decelerations: None Amniotic Membrane Status: Ruptured Assessment and Plan Assessment and plan (1) Pre-eclampsia: Status: Acute Assessment and plan: Patient receiving 2 g an hour of IV magnesium for seizure prophylaxis. She has a therapeutic serum magnesium level. (2) Normal labor: Status: Acute Assessment and plan: Patient is currently comfortable with labor epidural. heart rate category 1. We will continue to follow labor progress. Objective Abnormal lab results 07/24/22 07/24/22 07/25/22 Range/Units 17:42 17:42 03:25 WBC (4.4-10.8) 10^3/uL RBC 3.64 L (3.93-5.22) 10^6/uL Hgb 10.6 L (11.2-15.7) g/dL Hct 33.1 L (36.0-46.0) % MCHC (32.0-36.0) % MPV 13.5 H (8.0-11.0) fL Carbon Dioxide (21.0-32.0) mmol/L Anion Gap (3-11) mmol/L BUN 21 H (7-18) mg/dL Creatinine 1.1 H (0.55-1.02) mg/dL Calcium (8.5-10.1) mg/dL Magnesium 3.6 H (1.8-2.4) mg/dL Alkaline Phosphatase 144 H (46-116) U/L Albumin 2.6 L (3.4-5.0) g/dL 07/25/22 07/25/22 07/25/22 Range/Units 09:37 09:37 09:37 WBC 14.03 H (4.4-10.8) 10^3/uL RBC 3.62 L (3.93-5.22) 10^6/uL Hgb 10.3 L (11.2-15.7) g/dL Hct 33.1 L (36.0-46.0) % MCHC 31.1 L (32.0-36.0) % MPV 12.9 H (8.0-11.0) fL Carbon Dioxide 20.3 L (21.0-32.0) mmol/L Anion Gap 12.7 H (3-11) mmol/L BUN (7-18) mg/dL Creatinine 1.2 H (0.55-1.02) mg/dL Calcium 7.9 L (8.5-10.1) mg/dL Magnesium 5.1 H* D (1.8-2.4) mg/dL Alkaline Phosphatase 146 H (46-116) U/L Albumin 2.6 L (3.4-5.0) g/dL Temp Pulse Resp BP Pulse Ox 98.4 F 85 16 132/65 96 07/25/22 10:38 07/25/22 11:02 07/25/22 00:41 07/25/22 10:38 07/25/22 10:38 Laboratory Results WBC 14.03 10^3/uL (4.4-10.8) H 07/25/22 09:37 RBC 3.62 10^6/uL (3.93-5.22) L 07/25/22 09:37 Hgb 10.3 g/dL (11.2-15.7) L 07/25/22 09:37 Hct 33.1 % (36.0-46.0) L 07/25/22 09:37 MCV 91 fL (80-95) 07/25/22 09:37 MCH 28.5 pg (27.0-33.0) 07/25/22 09:37 MCHC 31.1 % (32.0-36.0) L 07/25/22 09:37 RDW 14.0 % (11.7-14.6) 07/25/22 09:37 Plt Count 171 10^3/uL (130-400) 07/25/22 09:37 MPV 12.9 fL (8.0-11.0) H 07/25/22 09:37 Sodium 140 mmol/L (136-145) 07/25/22 09:37 Potassium 4.3 mmol/L (3.5-5.1) 07/25/22 09:37 Chloride 107 mmol/L (98-107) 07/25/22 09:37 Carbon Dioxide 20.3 mmol/L (21.0-32.0) L 07/25/22 09:37 Anion Gap 12.7 mmol/L (3-11) H 07/25/22 09:37 BUN 16 mg/dL (7-18) 07/25/22 09:37 Creatinine 1.2 mg/dL (0.55-1.02) H 07/25/22 09:37 Est GFR (CKD-EPI 2020) 57.96 (mL/min/1.73m2) 07/25/22 09:37 Glucose 96 mg/dL (74-106) 07/25/22 09:37 Uric Acid 5.4 mg/dL (2.6-6.0) 07/24/22 17:42 Calcium 7.9 mg/dL (8.5-10.1) L 07/25/22 09:37 Magnesium 5.1 mg/dL (1.8-2.4) H* D 07/25/22 09:37 Total Bilirubin 0.3 mg/dL (0.2-1.0) 07/25/22 09:37 AST 28 U/L (15-37) 07/25/22 09:37 ALT 42 U/L (14-59) 07/25/22 09:37 Alkaline Phosphatase 146 U/L (46-116) H 07/25/22 09:37 Total Protein 6.5 g/dL (6.4-8.2) 07/25/22 09:37 Albumin 2.6 g/dL (3.4-5.0) L 07/25/22 09:37 Ur Random Creatinine 117.44 mg/dL 07/24/22 17:42 U Random Total Protein 23.1 mg/dL 07/24/22 17:42 U [place] Prot/Creat Ratio 0.19 07/24/22 17:42 Stl C.difficile Tox PCR Negative (Negative) 07/25/22 02:55 COVID-19 Source Nasal/Nares 07/24/22 20:00 SARS-CoV-2 (PCR) Negative (Negative) 07/24/22 20:00 Patient ABO/Rh A Positive 03/07/23 17:42 Antibody Screen NEGATIVE 07/24/22 17:42 Vital Signs Reviewed: Yes Subjective Patient Reports: No new Complaints Interval history since last seen: I have assumed care of the patient. I reviewed the labor progress and discussed with the patient and her nurses and plan going forward. She currently has oxytocin infusion with adequate contraction pattern. Epidural for pain is providing satisfactory labor analgesia. Magnesium sulfate infusion at 2 g/h. I reviewed her CMP and CBC from 929.creatinine 1.2 magnesium level is therapeutic. Plan is to continue present course of management. Results Hemoglobin/Hematocrit: Hgb 10.3 g/dL (11.2-15.7) L 07/25/22 09:37 Hct 33.1 % (36.0-46.0) L 07/25/22 09:37 Abnormal Lab Findings: Abnormal Labs 07/24/22 07/24/22 07/25/22 17:42 17:42 03:25 WBC RBC 3.64 L Hgb 10.6 L Hct 33.1 L MCHC MPV 13.5 H Carbon Dioxide Anion Gap BUN 21 H Creatinine 1.1 H Calcium Magnesium 3.6 H Alkaline Phosphatase 144 H Albumin 2.6 L 07/25/22 07/25/22 07/25/22 09:37 09:37 09:37 WBC 14.03 H RBC 3.62 L Hgb 10.3 L Hct 33.1 L MCHC 31.1 L MPV 12.9 H Carbon Dioxide 20.3 L Anion Gap 12.7 H BUN Creatinine 1.2 H Calcium 7.9 L Magnesium 5.1 H* D Alkaline Phosphatase 146 H Albumin 2.6 L
--- NOTE | 2022-07-25 12:17 | PGE_ITS ---
Date of service: 07/25/22 Time of Service: 12:17 Informed Consent Informed Consent: Risk,Benefits,Alternatives Discussed (No need for additional intervention at this time.) and Other (Patient wishes to continue with current labor plan.) Pelvic Exam Dilation: 10 Effacement (%): 100 station: 0 Vaginal Exam Presentation: Cephalic Comments: Patient remains comfortable epidural analgesia in place. She will begin maternal expulsive efforts. Spontaneous vaginal delivery is dissipated. Contractions Monitor Mode: External Contraction Frequency(min): 3-4 min Fetus A Heart Rate Baseline: 150 Presentation: Cephalic Variability: Moderate (6-25 BPM) Categories: Category I FHR Rhythm: Regular Characteristics: Normal Accelerations: 15 X 15 Assessment and Plan Assessment and plan (1) Normal labor: Status: Acute Assessment and plan: Patient completely dilated. Patient will begin maternal expulsive efforts. Fole catheter to be removed prior to maternal pushing Objective Abnormal lab results 07/24/22 07/24/22 07/25/22 Range/Units 17:42 17:42 03:25 WBC (4.4-10.8) 10^3/uL RBC 3.64 L (3.93-5.22) 10^6/uL Hgb 10.6 L (11.2-15.7) g/dL Hct 33.1 L (36.0-46.0) % MCHC (32.0-36.0) % MPV 13.5 H (8.0-11.0) fL Carbon Dioxide (21.0-32.0) mmol/L Anion Gap (3-11) mmol/L BUN 21 H (7-18) mg/dL Creatinine 1.1 H (0.55-1.02) mg/dL Calcium (8.5-10.1) mg/dL Magnesium 3.6 H (1.8-2.4) mg/dL Alkaline Phosphatase 144 H (46-116) U/L Albumin 2.6 L (3.4-5.0) g/dL 07/25/22 07/25/22 07/25/22 Range/Units 09:37 09:37 09:37 WBC 14.03 H (4.4-10.8) 10^3/uL RBC 3.62 L (3.93-5.22) 10^6/uL Hgb 10.3 L (11.2-15.7) g/dL Hct 33.1 L (36.0-46.0) % MCHC 31.1 L (32.0-36.0) % MPV 12.9 H (8.0-11.0) fL Carbon Dioxide 20.3 L (21.0-32.0) mmol/L Anion Gap 12.7 H (3-11) mmol/L BUN (7-18) mg/dL Creatinine 1.2 H (0.55-1.02) mg/dL Calcium 7.9 L (8.5-10.1) mg/dL Magnesium 5.1 H* D (1.8-2.4) mg/dL Alkaline Phosphatase 146 H (46-116) U/L Albumin 2.6 L (3.4-5.0) g/dL Temp Pulse Resp BP Pulse Ox 98.6 F 103 H 16 133/73 98 07/25/22 11:32 07/25/22 12:06 07/25/22 00:41 07/25/22 11:32 07/25/22 12:03 Laboratory Results WBC 14.03 10^3/uL (4.4-10.8) H 07/25/22 09:37 RBC 3.62 10^6/uL (3.93-5.22) L 07/25/22 09:37 Hgb 10.3 g/dL (11.2-15.7) L 07/25/22 09:37 Hct 33.1 % (36.0-46.0) L 07/25/22 09:37 MCV 91 fL (80-95) 07/25/22 09:37 MCH 28.5 pg (27.0-33.0) 07/25/22 09:37 MCHC 31.1 % (32.0-36.0) L 07/25/22 09:37 RDW 14.0 % (11.7-14.6) 07/25/22 09:37 Plt Count 171 10^3/uL (130-400) 07/25/22 09:37 MPV 12.9 fL (8.0-11.0) H 07/25/22 09:37 Sodium 140 mmol/L (136-145) 07/25/22 09:37 Potassium 4.3 mmol/L (3.5-5.1) 07/25/22 09:37 Chloride 107 mmol/L (98-107) 07/25/22 09:37 Carbon Dioxide 20.3 mmol/L (21.0-32.0) L 07/25/22 09:37 Anion Gap 12.7 mmol/L (3-11) H 07/25/22 09:37 BUN 16 mg/dL (7-18) 07/25/22 09:37 Creatinine 1.2 mg/dL (0.55-1.02) H 07/25/22 09:37 Est GFR (CKD-EPI 2020) 57.96 (mL/min/1.73m2) 07/25/22 09:37 Glucose 96 mg/dL (74-106) 07/25/22 09:37 Uric Acid 5.4 mg/dL (2.6-6.0) 07/24/22 17:42 Calcium 7.9 mg/dL (8.5-10.1) L 07/25/22 09:37 Magnesium 5.1 mg/dL (1.8-2.4) H* D 07/25/22 09:37 Total Bilirubin 0.3 mg/dL (0.2-1.0) 07/25/22 09:37 AST 28 U/L (15-37) 07/25/22 09:37 ALT 42 U/L (14-59) 07/25/22 09:37 Alkaline Phosphatase 146 U/L (46-116) H 07/25/22 09:37 Total Protein 6.5 g/dL (6.4-8.2) 07/25/22 09:37 Albumin 2.6 g/dL (3.4-5.0) L 07/25/22 09:37 Ur Random Creatinine 117.44 mg/dL 07/24/22 17:42 U Random Total Protein 23.1 mg/dL 07/24/22 17:42 U [place] Prot/Creat Ratio 0.19 07/24/22 17:42 Stl C.difficile Tox PCR Negative (Negative) 07/25/22 02:55 COVID-19 Source Nasal/Nares 07/24/22 20:00 SARS-CoV-2 (PCR) Negative (Negative) 07/24/22 20:00 Patient ABO/Rh A Positive 07/24/22 17:42 Antibody Screen NEGATIVE 07/24/22 17:42 Subjective Patient Reports: New Complaints (Headache behind her left eye) Interval history since last seen: Feeling some rectal pressure with contraction. Bloody show present. Results Hemoglobin/Hematocrit: Hgb 10.3 g/dL (11.2-15.7) L 07/25/22 09:37 Hct 33.1 % (36.0-46.0) L 07/25/22 09:37 Abnormal Lab Findings: Abnormal Labs 07/24/22 07/24/22 07/25/22 17:42 17:42 03:25 WBC RBC 3.64 L Hgb 10.6 L Hct 33.1 L MCHC MPV 13.5 H Carbon Dioxide Anion Gap BUN 21 H Creatinine 1.1 H Calcium Magnesium 3.6 H Alkaline Phosphatase 144 H Albumin 2.6 L 07/25/22 07/25/22 07/25/22 09:37 09:37 09:37 WBC 14.03 H RBC 3.62 L Hgb 10.3 L Hct 33.1 L MCHC 31.1 L MPV 12.9 H Carbon Dioxide 20.3 L Anion Gap 12.7 H BUN Creatinine 1.2 H Calcium 7.9 L Magnesium 5.1 H* D Alkaline Phosphatase 146 H Albumin 2.6 L
[2022-07-25] MEDS: MAGNESIUM SULFATE 20 GM/500 ML BAG IV (12:25)
[2022-07-25] MEDS: Lidocaine 1% Multi-Dose 20 ML VIAL IJ (15:45)
--- NOTE | 2022-07-25 17:18 | W.OBDELIVERY ---
Date of service: 07/25/22 Time of Service: 17:19 OB Labor/ Delivery Information Baby A Delivery Delivery Method: Assisted (Vacuum) Presentation: Cephalic Cephalic Position: Vertex Vertex Position: Right Occipital Anterior Breech Position: N/A Cord Description-Baby A: 3 Vessels and Nuchal Cord (Infant delivered through loose nuchal cord x1) Cord Description Comment: Normal-appearing cord Amniotic Fluid: Clear Estimated Blood Loss: 500 Delivery Outcome: Liveborn Infant Complications: None Infant Transferred: Remains with Mother Providers Doctor: Therese Andrea Nurse: Lauren Hernandez Nurse: Gabriel Villasenor Labor/Delivery Information Number of Babies in Womb: 1 Steroids Given: None Reason Steroids Not Administered: N/A Group Beta Strep: Negative Antibiotics Administered: No Rubella Status: Immune Blood Type: A+ Varicella Immunity: Immune Stages of Labor Onset of Labor Date: 07/25/22 Onset of Labor Time: 04:04 Complete Dilatation Date: 07/25/22 Complete Dilatation Time: 11:58 Labor - Stage 1 Duration: 7 hours and 54 minutes ROM Baby A: 07/25/22 ROM Baby A: 06:26 ROM Total Time- Baby A: [id number] Infant Delivery Date-Baby A: 07/25/22 Infant Delivery Time-Baby A: 15:22 Labor Stage 2 Duration: 3 hours and 24 minutes Placenta Delivery Date-Baby A: 07/25/22 Placenta Delivery Time-Baby A: 15:30 Labor-Stage 3 Duration: 8 minutes Total Length of Labor-Baby A: 11 hours and 18 minutes Placenta Status: Delivered Baby A Infant Gender: Male Gestational Age in Weeks/Days: 38 Weeks and 0 Days Score-1 Minute Interval(Baby A) Heart Rate-1 minute: 100 BPM or Greater Respiratory Effort- 1 minute: Spontaneous/Strong Cry Muscle Tone-1 minute: Active Movement Reflex Response-1 minute: Prompt Response Color-1 minute: Bluish Hands or Feet Total Score-1 minute: 9 Score-5 Minute Interval(Baby A) Heart Rate- 5 minute: 100 BPM or Greater Respiratory Effort-5 minute: Spontaneous/Strong Cry Muscle Tone-5 minute: Active Movement Reflex Response-5 minute: Prompt Response Color-5 minute: Bluish Hands or Feet Total Score- 5 minute: 9 Note: Third-degree perineal laceration was repaired using interrupted 2-0 Vicryl suture to reapproximate the external anal sphincter. 2-0 Vicryl suture was used to reapproximate the bulbospongiosus muscle followed by the transverse perinei muscle. The skin of the perineum was reapproximated with a subcuticular closure of 3-0 Vicryl. Superficial laceration of the left labia minora was reapproximated with a subcuticular closure of 3-0 Vicryl. At the completion of the repair rectal exam was performed and showed an intact rectal mucosa Procedure Procedures: Cord Blood Collection Interventions Assisted Delivery Baby A , Type of Assisted Delivery: Vacuum Indication for Vacuum Assisted Delivery: Maternal Exhaustion, Date Applied: 07/25/22, Time of Application: 15:18, Reduction of Pressure Between Contractions: Yes, Number of Pulls: 2, Number of Pop Offs: 0, Number of Contractions: 2 Total Minutes Vacuum Applied: 4.:
[2022-07-25] MEDS: Ibuprofen 600 MG TAB PO (17:56)
[2022-07-25] MEDS: Acetaminophen 500 MG TAB 1000 MG PO (20:30)
[2022-07-26] VITALS (15 sets, daily range): BP systolic 107–129; BP diastolic 60–78; PULSE 72–96; RESP 16–18; TEMP 36.6–37; O2SAT 98–100
[2022-07-26] MEDS: Ibuprofen 600 MG TAB PO ×4 (00:09→18:38)
[2022-07-26] MEDS: MAGNESIUM SULFATE 20 GM/500 ML BAG IV (01:23)
[2022-07-26] MEDS: Acetaminophen 500 MG TAB 1000 MG PO ×4 (02:23→21:40)
[2022-07-26 07:24] LABS: MCH 29.6 pg (27.0-33.0); MCHC 32.4 % (32.0-36.0); MCV 91 fL (80-95); MPV 11.4 fL (8.0-11.0); Platelet Count 134 10^3/uL (130-400); RDW 14.6 % (11.7-14.6); RDW-SD 47.3 fL; WBC 11.05 10^3/uL (4.4-10.8)
[2022-07-26 07:27] LABS: HGB 6.8 g/dL (11.2-15.7)
--- NOTE | 2022-07-26 09:04 | NUR.NOTE ---
Nursing Note: RBT transfusion started at 0900. Blood product visualized to IV sight at 0901
--- NOTE | 2022-07-26 09:25 | NUR.NOTE ---
PRBC transfusion started at 0900 at 50ml/hr. No transfusion reaction noted. Rate increased to 350ml/hr at 0925 Nursing Note:
[2022-07-26] MEDS: Aspirin E.C. 81 MG TABEC PO (09:34)
[2022-07-26] MEDS: Labetalol 100 MG TAB 200 MG PO (09:34)
[2022-07-26] MEDS: Prenatal Multivitamin w/CA,FE TAB 1 TAB PO (09:34)
[2022-07-26] MEDS: Fluticasone NASAL SPRAY 16 GM BTL NS (09:34)
[2022-07-26] MEDS: Enoxaparin 40 MG/0.4 ML SYR SC (09:36)
--- NOTE | 2022-07-26 11:13 | W.PM.OBPNV1 ---
Date of service: 07/26/22 Time of Service: 10:30 Assessment and Plan Assessment and plan (1) care following vaginal delivery: Status: Acute Assessment and plan: Routine pp care. Will continue to assist with breast feeding. (2) Pre-eclampsia: Assessment and plan: Doing well. Mag turned off this am due to adequate diuresis. BPs stable and mostly normal. Labs due to repeat tomorrow am. Subjective Subjective Interval history: Lizy is feeling tired and has a slight headache but doing well overall. She says her anxiety has improved s/p delivery. She reports minimal lochia. She is currently receiving a blood transfusion baby status: Doing well feeding status: Breast and formula feeding Exam Physical Exam Vital signs: Temp Pulse Resp BP Pulse Ox 98.1 F 77 16 107/60 99 07/26/22 11:00 07/26/22 11:00 07/26/22 11:00 07/26/22 11:00 07/26/22 11:00 Vital Signs Reviewed: Yes Constitutional Constitutional: no acute distress and cooperative Detailed HEENT Exam Head: Present normocephalic and atraumatic Respiratory Exam Respiratory Exam: Normal Abdominal Exam Abdomen: Tender (mildly) Fundal Exam Fundus: Below Umbilicus and Firm Extremities Exam Comment: 1+ edema LLE, 1+DTR, no calf tenderness. RLE with significant swelling and bruising. Detailed Neurological Exam Neurological: Present alert, oriented X3 and CN II-XII intact Results Hemoglobin/Hematocrit: Hgb 6.8 g/dL (11.2-15.7) L* D 07/26/22 07:11 Hct 21.0 % (36.0-46.0) L 07/26/22 07:11 Abnormal Lab Findings: Abnormal Labs 07/24/22 07/24/22 07/24/22 17:42 17:42 17:42 WBC RBC 3.64 L Hgb 10.6 L Hct 33.1 L MCHC MPV 13.5 H Carbon Dioxide Anion Gap BUN 21 H Creatinine 1.1 H Calcium Magnesium Alkaline Phosphatase 144 H Albumin 2.6 L Crossmatch See Detail 07/25/22 07/25/22 07/25/22 03:25 09:37 09:37 WBC RBC Hgb Hct MCHC MPV Carbon Dioxide 20.3 L Anion Gap 12.7 H BUN Creatinine 1.2 H Calcium 7.9 L Magnesium 3.6 H 5.1 H* D Alkaline Phosphatase 146 H Albumin 2.6 L Crossmatch 07/25/22 07/26/22 09:37 07:11 WBC 14.03 H 11.05 H RBC 3.62 L 2.30 L Hgb 10.3 L 6.8 L* D Hct 33.1 L 21.0 L MCHC 31.1 L MPV 12.9 H 11.4 H Carbon Dioxide Anion Gap BUN Creatinine Calcium Magnesium Alkaline Phosphatase Albumin Crossmatch
--- NOTE | 2022-07-26 18:31 | W.ANESPOSTOP ---
Postoperative Evaluation Date, Time and Location Date Performed: 07/26/22 Time Performed: 18:05 Patient Location: Obstetrics Vital Signs Most Recent Imported Vital Signs: Most Recent Vital Signs Temp Pulse Resp BP Pulse Ox 36.6 C 79 18 128/78 100 07/26/22 15:10 07/26/22 15:10 07/26/22 15:10 07/26/22 15:10 07/26/22 15:10 Pain Score Most Recent Pain Score: Most Recent Pain Score Pain Level 6 07/26/22 09:38 Assessment Mental Status: Awake (Alert & Oriented to Patient Baseline) Airway and Respiratory Function: Patent airway with normal (patient baseline) respiratory exam Cardiovascular Function: Hemodynamically Stable Hydration Status: Adequately Hydrated Nausea & Vomiting: No Nausea or Vomiting Pain: Pain is Moderate or Severe Postoperative Pain Management: Ongoing pain, patient will be managed as an inpatient (Reports no pain associated with epidural site, pain associated with prior leg fracture) Peripheral Nerve Block: Patient did not receive a nerve block
[2022-07-27] MEDS: Ibuprofen 600 MG TAB PO ×4 (00:27→19:59)
[2022-07-27 02:20] VITALS: BP 150/84; PULSE 92; RESP 18
[2022-07-27] MEDS: Acetaminophen 500 MG TAB 1000 MG PO ×3 (05:32→22:15)
[2022-07-27 07:18] LABS: HCT 23.9 % (36.0-46.0); HGB 7.9 g/dL (11.2-15.7); MCH 29.5 pg (27.0-33.0); MCHC 33.1 % (32.0-36.0); MCV 89 fL (80-95); MPV 11.9 fL (8.0-11.0); Platelet Count 152 10^3/uL (130-400); RBC 2.68 10^6/uL (3.93-5.22); RDW 14.8 % (11.7-14.6); RDW-SD 47.1 fL; WBC 11.34 10^3/uL (4.4-10.8)
[2022-07-27 07:34] LABS: ALT 21 U/L (14-59); AST 14 U/L (15-37); Albumin 1.8 g/dL (3.4-5.0); Alkaline Phosphatase 83 U/L (46-116); Anion Gap 8.5 mmol/L (3-11); BUN 19 mg/dL (7-18); Bilirubin, Total 0.2 mg/dL (0.2-1.0); CO2 22.5 mmol/L (21.0-32.0); CREATININE 1.2 mg/dL (0.55-1.02); Calcium 7.3 mg/dL (8.5-10.1); Chloride 108 mmol/L (98-107); Estimated GFR 57.96 (mL/min/1.73m2); Glucose 76 mg/dL (74-106); Potassium 4.2 mmol/L (3.5-5.1); Sodium 139 mmol/L (136-145); Total Protein 4.7 g/dL (6.4-8.2)
[2022-07-27 07:42] VITALS: BP 129/75; PULSE 76; RESP 18; TEMP 36.7; O2SAT 100
[2022-07-27] MEDS: Prenatal Multivitamin w/CA,FE TAB 1 TAB PO (09:01)
[2022-07-27] MEDS: Enoxaparin 40 MG/0.4 ML SYR SC (09:02)
--- NOTE | 2022-07-27 09:02 | W.PM.OBPNV1 ---
Date of service: 07/27/22 Time of Service: 09:02 Assessment and Plan Assessment and plan (1) care following vaginal delivery: Status: Acute Assessment and plan: Pt recovering well s/p Vacuum assisted VD. She is still struggling a little bit with breast feeding. (2) Closed fracture of right tibia and fibula: Status: Acute Assessment and plan: Continues to have significant bruising and swelling. Wants to try to ambulated a bit more. Will continue to ice and elevated while resting. (3) Diarrhea: Status: Acute Assessment and plan: Will continue to hydrate. C. Diff test negative during labor 2 days ago. Will contact PCP if not resolving by next week. (4) Pre-eclampsia: Assessment and plan: BPs have been mostly wnl or very mildly elevated. Labs are normal this am except a continued elevated creatinine of 1.2. She is diuresing well. Will continue Labetalol on discharge if BPs are elevated throughout the day. Will plan on circumcision for baby and possible discharge tonight or tomorrow. Subjective Subjective Interval history: Pt doing relatively well post-. She has a lot of bruising and swelling in her right leg but the pain is not worse. She would like to try to get up and walk in the hallway a bit. She is propping it up and icing while in bed. She hadn't had any BM after delivery until last night and overnight she has had some diarrhea again. She is eating ok and has no nausea. She knows she should drink more but is hesitant because she doesn't want to have to keep asking people to come help her get up to go pee. Minimal lochia. She is not producing milk yet but keeps putting baby to breast. She is supplementing with formula. Exam Physical Exam Vital signs: Temp Pulse Resp BP Pulse Ox 98.1 F 76 18 129/75 100 07/27/22 07:42 07/27/22 07:42 07/27/22 07:42 07/27/22 07:42 07/27/22 07:42 Vital Signs Reviewed: Yes Constitutional Constitutional: no acute distress and cooperative Detailed HEENT Exam Head: Present normocephalic and atraumatic Respiratory Exam Respiratory Exam: Normal Abdominal Exam Abdomen: Tender (mildly) Fundal Exam Fundus: Below Umbilicus and Firm Extremities Exam Comment: 1+ edema on left leg. Right leg bruised with mild swelling to above the knee. Detailed Neurological Exam Neurological: Present alert, oriented X3 and CN II-XII intact Results Hemoglobin/Hematocrit: Hgb 7.9 g/dL (11.2-15.7) L 07/27/22 06:55 Hct 23.9 % (36.0-46.0) L 07/27/22 06:55 Abnormal Lab Findings: Abnormal Labs 07/24/22 07/24/22 07/24/22 17:42 17:42 17:42 WBC RBC 3.64 L Hgb 10.6 L Hct 33.1 L MCHC RDW MPV 13.5 H Chloride Carbon Dioxide Anion Gap BUN 21 H Creatinine 1.1 H Calcium Magnesium AST Alkaline Phosphatase 144 H Total Protein Albumin 2.6 L Crossmatch See Detail 07/25/22 07/25/22 07/25/22 03:25 09:37 09:37 WBC RBC Hgb Hct MCHC RDW MPV Chloride Carbon Dioxide 20.3 L Anion Gap 12.7 H BUN Creatinine 1.2 H Calcium 7.9 L Magnesium 3.6 H 5.1 H* D AST Alkaline Phosphatase 146 H Total Protein Albumin 2.6 L Crossmatch 07/25/22 07/26/22 07/27/22 09:37 07:11 06:55 WBC 14.03 H 11.05 H RBC 3.62 L 2.30 L Hgb 10.3 L 6.8 L* D Hct 33.1 L 21.0 L MCHC 31.1 L RDW MPV 12.9 H 11.4 H Chloride 108 H Carbon Dioxide Anion Gap BUN 19 H Creatinine 1.2 H Calcium 7.3 L Magnesium AST 14 L Alkaline Phosphatase Total Protein 4.7 L Albumin 1.8 L Crossmatch 07/27/22 06:55 WBC 11.34 H RBC 2.68 L Hgb 7.9 L Hct 23.9 L MCHC RDW 14.8 H MPV 11.9 H Chloride Carbon Dioxide Anion Gap BUN Creatinine Calcium Magnesium AST Alkaline Phosphatase Total Protein Albumin Crossmatch
[2022-07-27 12:10] VITALS: BP 137/81; PULSE 88; RESP 20; TEMP 36.7; O2SAT 100
[2022-07-27 23:24] VITALS: BP 147/84; PULSE 78; RESP 17; TEMP 37; O2SAT 98
[2022-07-28] VITALS (10 sets, daily range): BP systolic 134–166; BP diastolic 77–99; PULSE 67–92; RESP 16–17; TEMP 36.6–36.7; O2SAT 99
[2022-07-28] MEDS: Dibucaine 1% 28 GM TUBE TP ×2 (00:01→08:12)
[2022-07-28] MEDS: Labetalol 100 MG TAB 200 MG PO ×2 (00:23→08:14)
[2022-07-28] MEDS: Ibuprofen 600 MG TAB PO ×4 (02:25→21:14)
[2022-07-28] MEDS: Hamamelis Leaf/Glycerin 100 EACH BOX PR (08:12)
[2022-07-28] MEDS: Prenatal Multivitamin w/CA,FE TAB 1 TAB PO (08:12)
[2022-07-28] MEDS: Enoxaparin 40 MG/0.4 ML SYR SC (08:13)
--- NOTE | 2022-07-28 10:35 | W.PM.OBPNV1 ---
Date of service: 07/28/22 Time of Service: 10:35 Assessment and Plan Assessment and plan (1) care following vaginal delivery: Status: Acute Assessment and plan: Continue assistance with breast feeding and pumping. Will try protonix for possible heartburn. Possible D/C later today or tomorrow. (2) Diarrhea: Status: Acute Assessment and plan: Will try imodium (3) Pre-eclampsia: Assessment and plan: Will repeat labs and switch from Labetalol to Nifedipine XR and see how her BPs respond throughout the day. Subjective Subjective Interval history: Pt wasn't feeling well last night. She had a headache again and less of an appetite. She feels like there's a fullness in her stomach no matter what she eats. She continues to have some diarrhea. Her headache has since resolved. She has minimal lochia. She has not been able to pump much for baby and he just had his tongue clipped this morning which may help with her discomfort. She wants to continue trying to pump and supplement. Exam Physical Exam Vital signs: Temp Pulse Resp BP Pulse Ox 98.1 F 71 16 153/84 H 98 07/28/22 09:00 07/28/22 09:00 07/28/22 09:00 07/28/22 09:00 07/27/22 23:24 Vital Signs Reviewed: Yes Narrative: BPs elevated overnight. Her labetalol mistakenly got cancelled yesterday so she was not taking it. She received a dose just after midnight this am and then again at 8am but her BPs continue to be mildly elevated. Constitutional Constitutional: no acute distress and cooperative Detailed HEENT Exam Head: Present normocephalic and atraumatic Respiratory Exam Respiratory Exam: Normal Abdominal Exam Abdomen: Tender (mildly) Comments: No epigastric tenderness Fundal Exam Fundus: Below Umbilicus and Firm Extremities Exam Comment: Right leg bruised and sore. left leg trace edema and no calf tenderness. Neg DTRs. Detailed Neurological Exam Neurological: Present alert, oriented X3 and CN II-XII intact DetailedPsychiatric Exam Comments: Feeling anxious about her BPs and a bit discouraged about breast feeding. Results Hemoglobin/Hematocrit: Hgb 7.9 g/dL (11.2-15.7) L 07/27/22 06:55 Hct 23.9 % (36.0-46.0) L 07/27/22 06:55 Abnormal Lab Findings: Abnormal Labs 07/24/22 07/24/22 07/24/22 17:42 17:42 17:42 WBC RBC 3.64 L Hgb 10.6 L Hct 33.1 L MCHC RDW MPV 13.5 H Chloride Carbon Dioxide Anion Gap BUN 21 H Creatinine 1.1 H Calcium Magnesium AST Alkaline Phosphatase 144 H Total Protein Albumin 2.6 L Crossmatch See Detail 07/25/22 07/25/22 07/25/22 03:25 09:37 09:37 WBC RBC Hgb Hct MCHC RDW MPV Chloride Carbon Dioxide 20.3 L Anion Gap 12.7 H BUN Creatinine 1.2 H Calcium 7.9 L Magnesium 3.6 H 5.1 H* D AST Alkaline Phosphatase 146 H Total Protein Albumin 2.6 L Crossmatch 07/25/22 07/26/22 07/27/22 09:37 07:11 06:55 WBC 14.03 H 11.05 H RBC 3.62 L 2.30 L Hgb 10.3 L 6.8 L* D Hct 33.1 L 21.0 L MCHC 31.1 L RDW MPV 12.9 H 11.4 H Chloride 108 H Carbon Dioxide Anion Gap BUN 19 H Creatinine 1.2 H Calcium 7.3 L Magnesium AST 14 L Alkaline Phosphatase Total Protein 4.7 L Albumin 1.8 L Crossmatch 07/27/22 06:55 WBC 11.34 H RBC 2.68 L Hgb 7.9 L Hct 23.9 L MCHC RDW 14.8 H MPV 11.9 H Chloride Carbon Dioxide Anion Gap BUN Creatinine Calcium Magnesium AST Alkaline Phosphatase Total Protein Albumin Crossmatch
[2022-07-28] MEDS: Pantoprazole 40 MG TABCR PO (11:15)
[2022-07-28] MEDS: NIFEdipine-CR 30 MG TABCR PO (11:16)
[2022-07-28] MEDS: Loperamide 2 MG CAP PO (11:16)
[2022-07-28 11:43] LABS: Abs Immature Grans 0.11 10^3/uL (0.0-0.06); Absolute Basophil Count 0.03 10^3/uL (0.0-0.2); Absolute Eosinophil Count 0.07 10^3/uL (0.0-0.7); Absolute Monocyte Count 0.81 10^3/uL (0.1-0.8); Basophils % 0.2; Eosinophils % 0.5; HCT 24.5 % (36.0-46.0); HGB 8.1 g/dL (11.2-15.7); Immature Grans % 0.8; Lymphocytes % 10.9; MCH 29.8 pg (27.0-33.0); MCHC 33.1 % (32.0-36.0); MCV 90 fL (80-95); MPV 11.7 fL (8.0-11.0); Monocytes % 5.9; Neutrophils % 81.7; Platelet Count 182 10^3/uL (130-400); RBC 2.72 10^6/uL (3.93-5.22); RDW 14.6 % (11.7-14.6); RDW-SD 48.1 fL; WBC 13.73 10^3/uL (4.4-10.8)
[2022-07-28 11:44] LABS: Absolute Neutrophil Count 11.22 10^3/uL (1.2-6.7)
[2022-07-28 12:04] LABS: ALT 33 U/L (14-59); AST 31 U/L (15-37); Albumin 2.2 g/dL (3.4-5.0); Alkaline Phosphatase 101 U/L (46-116); Anion Gap 9.9 mmol/L (3-11); BUN 15 mg/dL (7-18); Bilirubin, Total 0.3 mg/dL (0.2-1.0); CO2 21.1 mmol/L (21.0-32.0); CREATININE 1.1 mg/dL (0.55-1.02); Calcium 8.1 mg/dL (8.5-10.1); Chloride 109 mmol/L (98-107); Estimated GFR 64.34 (mL/min/1.73m2); Glucose 84 mg/dL (74-106); Potassium 4.5 mmol/L (3.5-5.1); Sodium 140 mmol/L (136-145); Total Protein 5.6 g/dL (6.4-8.2)
[2022-07-29 00:35] VITALS: BP 133/79; PULSE 89
[2022-07-29 05:28] VITALS: BP 146/81; PULSE 91
[2022-07-29] MEDS: NIFEdipine-CR 30 MG TABCR PO (08:33)
[2022-07-29] MEDS: Prenatal Multivitamin w/CA,FE TAB 1 TAB PO (08:33)
[2022-07-29] MEDS: Enoxaparin 40 MG/0.4 ML SYR SC (08:34)
[2022-07-29 08:43] VITALS: BP 164/90; PULSE 83; RESP 16; TEMP 36.7
--- NOTE | 2022-07-29 10:04 | DSE_ITS ---
Date of service: 07/29/22 Time of Service: 10:04 DS: Diagnosis Discharge Diagnosis (1) care following vaginal delivery: Status: Acute Asessment and Plan: Routine pp care (2) Diarrhea: Status: Acute Asessment and Plan: Will take imodium prn but was doing better today (3) Pre-eclampsia: Asessment and Plan: BP stable overnight. Will continue Nifedipine XR. BP check at [facility] Tues am - arrive @8:40 Discharge Plan Disposition Patient Disposition: Home Condition: Good Discharge Details Reason For Visit: Elevated BP Admit Date/Time: 07/26/22 11:05 Admit Provider: Lisa Gómez Attending Provider: Lisa óGmez Primary Care Provider: Fito Harris Hospital Course Hospital Course: Lizy was admitted with severely elevated BPs. They responded quickly to oral Nifedipine. Labs were normal other than creatinine of 1.2. She was started on magnesium sulfate for seizure prophylaxis. She was already darline every 5min but didn't change her cervix so she underwent labor augmentation with pitocin. She progressed in labor and delivered a baby via vacuum assist <24hrs later. Her blood pressures remained stable during her stay until HD#4 when they elevated again. She was switched from the PO labetalol she was taking to PO Nifedipine XR which stablized her BPs. Labs remained stable. Home Meds and New Rx's Prescriptions: New loperamide 2 mg Capsule 2 mg PO Q4H PRN PRNQty: 0 0RF nifedipine 30 mg Tablet Extended Release 30 mg PO DAILY Qty: 30 1RF acetaminophen 500 mg Tablet 1,000 mg PO Q6H PRN PRNQty: 0 0RF dibucaine 1 % Ointment 1 applic topical TID PRN PRNQty: 0 0RF ibuprofen 600 mg Tablet 600 mg PO Q6H PRN PRNQty: 60 0RF fluticasone propionate 50 mcg/actuation [place],Suspension 0 g NS DAILY PRNQty: 0 0RF Medi-Pads 50 % Pads, Medicated 1 pad IL PRN PRN (Reason: Discomfort) Qty: 0 0RF Continued prenat.vits,diana,now-lihi-sjquv Tablet 1 tab PO DAILY Zyrtec 10 mg capsule 10 mg PO DAILY PRN enoxaparin [Lovenox] 40 mg/0.4 mL syringe 40 mg subcut DAILY Qty: 6 1RF Discontinued aspirin 81 mg capsule 81 mg PO DAILY Hold Instructions: Resume on 08/10/22. ondansetron HCl 4 mg tablet 4 mg PO Q6H PRN (Reason: nausea and vomiting) Qty: 30 2RF (DME) FreeStyle Lite Strips Strip See Rx Instructions .Route Qty: 100 4RF Rx Instructions: 4 times daily (DME) blood-glucose meter [FreeStyle Lite Meter] Kit See Rx Instructions .Route Qty: 1 0RF Rx Instructions: 4 times daily (DME) lancets [FreeStyle Lancets] 28 gauge misc See Rx Instructions .Route Qty: 100 4RF Rx Instructions: 4 times daily alcohol swabs [Alcohol Pads] Pads, Medicated 1 pad topical .4 times daily Qty: 200 2RF oxycodone 5 mg tablet 5 - 10 mg PO Q4H PRN MDD 6 PRN (Reason: pain) Qty: 30 0RF Discharge Instructions Activity:: Nothing in the vagina Equipment/Supplies:: No Equipment Needed Diet:: As Tolerated Discharge Orders Discharge Orders: Discharge Order (Routine); Ordered 07/29/22 Ordered By: Selin Hess OB:DS Summary Summary Vaginal Delivery Method: Assisted (Vacuum) Laceration Extension: Third Degree Contraception Discussed Contraception Discussed: Yes Contraceptive Plan: IUD (Had Paragard before, may want that again vs LN-IUD), Infant Gender-Baby A: Male weight: 7 lb 7.579 oz Status at Discharge Functional status at discharge: uses cane/walker (due to broken leg/boot) Overall status at discharge: patient is back to baseline Mental Status: mental status grossly normal Speech and Movement: speech and movement normal Mood: congruent mood Affect: normal affect Exam Physical Exam Vital signs: Temp Pulse Resp BP Pulse Ox 98.1 F 83 16 164/90 H 99 07/29/22 08:43 07/29/22 08:43 07/29/22 08:43 07/29/22 08:43 07/28/22 20:14 Constitutional Constitutional: no acute distress and cooperative Detailed HEENT Exam Head: Present normocephalic and atraumatic Respiratory Exam Respiratory Exam: Normal Abdominal Exam Abdomen: Tender (mildly) Fundal Exam Fundus: Below Umbilicus and Firm Extremities Exam Comment: Right leg bruised but improving. Left leg no edema. Neg calf tenderness. Detailed Neurological Exam Neurological: Present alert, oriented X3 and CN II-XII intact PFSH All Active Problems (Updated 07/27/22 @ 09:11 by Selin Hess MD) Diarrhea (Acute) care following vaginal delivery (Acute) Anxiety (Chronic) SUSSY (stress urinary incontinence, female) (Acute) Swelling of left foot (Acute) Closed fracture of right tibia and fibula (Acute 07/12/22) Fracture of posterior malleolus of right tibia (Acute 07/12/22) Medical History (Updated 07/27/22 @ 09:11 by Selin Hess MD) Family history of thyroid disease in mother Gestational diabetes mellitus (GDM) affecting 3 hour test F96, 1 h 187, 2h 150, 3h 99 Pre-eclampsia Surgical History Repair of umbilical hernia 2011 [facility] [place] S/P laparoscopy Family History Father Diabetes Hypertension Mother Thyroid disorder Osteoporosis Social History Smoking/Tobacco Use Status: Never Smoking risk assessment performed?: Yes Alcohol Intake: never Drug use: Never Substance use type: does not use 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 Date GA/Weeks # Preg Succ Route Wgt Sex Labor Lgth Anesth esia Location Prov Compl 01/12/05 39 No Yes vaginal 6 lb 8 oz Female 6hr [place], [place] Delivery Date: 01/12/05 Last Updated by: Ashlyn Blake CNM SROM X 12 hours then augmentation with delivery 6 hours later. DS: Data Vitals/I&O Vitals and I&O: Vital Signs Temperature 98.1 F 07/29/22 08:43 Pulse 83 07/29/22 08:43 Pulse Rhythm Regular 07/29/22 08:41 Respiratory Rate 16 07/29/22 08:43 Respiratory Depth Normal 07/26/22 08:30 Blood Pressure 164/90 H 07/29/22 08:43 Blood Pressure Mean 114 07/29/22 08:43 Pulse Oximetry 99 07/28/22 20:14 Oxygen Delivery Method Room Air 07/26/22 12:15 Oxygen Flow Rate 0 07/26/22 12:15 Pain Level 3 07/28/22 14:09 Comment Prior to Nifedipine administration. 07/28/22 11:15 Intake & Output 07/28/22 07/28/22 07/29/22 11:59 23:59 12:59 Other: Urine Color Yellow Yellow Urine Appearance Clear Clear Urine Odor None Normal Voiding Methods Toilet Toilet Data Completed and Pending Labs on day of discharge: Labs from last 24 hours 07/28/22 07/28/22 11:25 11:25 WBC 13.73 H RBC 2.72 L Hgb 8.1 L Hct 24.5 L MCV 90 MCH 29.8 MCHC 33.1 RDW 14.6 Plt Count 182 MPV 11.7 H Immature Gran % 0.8 Neutrophils % 81.7 Lymphocytes % 10.9 Monocytes % 5.9 Eosinophils % 0.5 Basophils % 0.2 Nucleated RBC % 0.0 Absolute Neutrophils 11.22 H Absolute Lymphocytes 1.50 Absolute Monocytes 0.81 H Absolute Eosinophils 0.07 Absolute Basophils 0.03 Sodium 140 Potassium 4.5 Chloride 109 H Carbon Dioxide 21.1 Anion Gap 9.9 BUN 15 Creatinine 1.1 H Est GFR (CKD-EPI 2020) 64.34 Glucose 84 Calcium 8.1 L Total Bilirubin 0.3 AST 31 ALT 33 Alkaline Phosphatase 101 Total Protein 5.6 L Albumin 2.2 L
[2022-07-29] MEDS: Dibucaine 1% 28 GM TUBE TP (11:02)
== END 2022-07-29 15:12 | disposition home or self-care (01) | DRG 768 ==
PROVIDERS: Obstetrics & Gynecology; Obstetrics & Gynecology Gynecology; Admitting Provider Obstetrics & Gynecology; PCP Nurse Practitioner Family; Visit Provider Obstetrics & Gynecology
DX: O14.94 Unspecified pre-eclampsia, complicating childbirth (principal); Z37.0 Single live birth; Z3A.38 38 weeks gestation of pregnancy; S82.201D Unspecified fracture of shaft of right tibia, subsequent encounter for closed fracture with routine healing; S82.401D Unspecified fracture of shaft of right fibula, subsequent encounter for closed fracture with routine healing; O24.420 Gestational diabetes mellitus in childbirth, diet controlled; O99.344 Other mental disorders complicating childbirth; F41.9 Anxiety disorder, unspecified; O99.62 Diseases of the digestive system complicating childbirth; K42.9 Umbilical hernia without obstruction or gangrene; R19.7 Diarrhea, unspecified; F90.9 Attention-deficit hyperactivity disorder, unspecified type; N39.3 Stress incontinence (female) (male); O75.89 Other specified complications of labor and delivery; O70.20 Third degree perineal laceration during delivery, unspecified; O69.81X0 Labor and delivery complicated by cord around neck, without compression, not applicable or unspecified; X58.XXXD Exposure to other specified factors, subsequent encounter
CPT/HCPCS: 36415; 36430; 80053; 85027; 86850; 86900; 86901; 86920; 87493; 87635; J1650; 82565; 83735; 84156; 84550; 85025; J3475; P9016

== ENCOUNTER 2022-08-21 15:16 | Outpatient (CLI) | payer BC, SELFPAY ==
--- NOTE | 2022-08-21 15:00 | DI.RAD_ITS ---
Exam(s) XR ANKLE RT COMPLETE XR TIB/FIB RT EXAM: XR ANKLE RT COMPLETE CLINICAL HISTORY: f/u fx. TECHNIQUE: 2D digital imaging was performed. Three views. COMPARISON: CR XR TIB/FIB RT from 07/24/2022 CR XR TIB/FIB RT from 08/21/2022 FINDINGS: BONES: Intramedullary sammy again noted in the tibia for fracture fixation. No change in fracture alig nment. Proximal fibular fracture is unchanged. The nondisplaced intra-articular fracture through th e posterior malleolus is also unchanged in alignment, barely visible. No bony destructive lesion is seen. JOINTS: The ankle mortise is normally aligned. SOFT TISSUE: Normal. IMPRESSION: Stable appearance of tibial and fibular fractures and intramedullary sammy. DATA REPOSITORY: RADIATION DOSE DELIVERED:
== END 2022-08-21 15:17 | disposition home or self-care (01) ==
LOC: DIORS 15:17
PROVIDERS: PCP Nurse Practitioner Family; Referring Provider Nurse Practitioner Family; Visit Provider Student in an Organized Health Care Education/Training Program
DX: S82.391D Other fracture of lower end of right tibia, subsequent encounter for closed fracture with routine healing; S82.491D Other fracture of shaft of right fibula, subsequent encounter for closed fracture with routine healing; S82.64XD Nondisplaced fracture of lateral malleolus of right fibula, subsequent encounter for closed fracture with routine healing; X58.XXXD Exposure to other specified factors, subsequent encounter
CPT/HCPCS: 73590; 73610

== ENCOUNTER 2022-10-02 14:21 | Outpatient (CLI) | payer BC, SELFPAY ==
--- NOTE | 2022-10-02 14:00 | DI.RAD_ITS ---
Exam(s) XR TIB/FIB RT EXAM: XR TIB/FIB RT CLINICAL HISTORY: F/U FRACTURE. TECHNIQUE: 2D digital imaging was performed. Three images were obtained. AP and lateral views were obtained. COMPARISON: CR XR TIB/FIB RT from 08/21/2022 FINDINGS: BONES: There are stable post operative changes present. No new fracture or dislocation. The fracture lines are less well visualized suggesting interval healing. No new fracture is seen. JOINTS: The joint spaces are well maintained. No joint effusion is present. SOFT TISSUE: Normal. IMPRESSION: Stable postoperative changes. DATA REPOSITORY: RADIATION DOSE DELIVERED:
== END 2022-10-02 14:22 | disposition home or self-care (01) ==
LOC: DIORS 14:21
PROVIDERS: PCP Nurse Practitioner Family; Referring Provider Nurse Practitioner Family; Visit Provider Student in an Organized Health Care Education/Training Program
DX: S82.201D Unspecified fracture of shaft of right tibia, subsequent encounter for closed fracture with routine healing (principal); S82.391D Other fracture of lower end of right tibia, subsequent encounter for closed fracture with routine healing; X58.XXXD Exposure to other specified factors, subsequent encounter; Z98.890 Other specified postprocedural states
CPT/HCPCS: 73590

== ENCOUNTER 2022-10-19 02:10 | Outpatient (CLI) | payer BC, SELFPAY ==
[2022-10-19 10:40] LABS: GTT Comment See Comments
== END 2022-10-19 02:11 | disposition home or self-care (01) ==
LOC: LBO 02:10
PROVIDERS: PCP Nurse Practitioner Family; Visit Provider Advanced Practice Midwife
DX: Z86.32 Personal history of gestational diabetes (principal)
CPT/HCPCS: 36415; 82951

== ENCOUNTER 2022-10-29 20:33 | Emergency (ER) | payer BC, SELFPAY ==
[2022-10-29 20:40] VITALS: BP 117/75; PULSE 75; RESP 16; TEMP 36.9; O2SAT 100
--- NOTE | 2022-10-29 21:22 | W.ED.GENAD ---
Discharge Plan Disposition Patient Disposition: Home Discharge Details Clinical Impression: Right leg swelling Primary Care Provider: Fito Harris ED Provider: Daja Haynes Home Meds and New Rx's Prescriptions: Continued prenat.vits,diana,[id number] Tablet 1 tab PO DAILY Zyrtec 10 mg capsule 10 mg PO DAILY PRN nifedipine 30 mg tablet extended release 30 mg PO DAILY Qty: 90 1RF ParaGard T 380A 380 square mm intrauterine device 1 device intrauterine ONCE Rx Instructions: as a single dose escitalopram oxalate 10 mg tablet 10 mg PO DAILY Qty: 30 2RF acetaminophen 500 mg Tablet 1,000 mg PO Q6H PRN PRNQty: 0 0RF ibuprofen 600 mg Tablet 600 mg PO Q6H PRN PRNQty: 60 0RF Medi-Pads 50 % Pads, Medicated 1 pad CA PRN PRN (Reason: Discomfort) Qty: 0 0RF Discharge Instructions Additional Instructions: Please call at 7 AM to make ultrasound appointment Please return should you have new or worsening complaints Elevate your legs this evening Medical Decision Making 42-year-old female with right lower extremity swelling, no significant tenderness, no evidence of secondary infection, 2+ edema Will order ultrasound to exclude DVT, very low suspicion for DVT, no signs or symptoms consistent with PE at this time I will not initiate anticoagulation at this time Suspect mild peripheral edema in the presence of increased ambulation and recent surgical intervention on affected extremity Return precautions reviewed and patient expressed understanding HPI General Date/Time Provider Initiated Documentation: 10/29/22 20:34. HPI Narrative: This 42-year-old female presents approximately 3 weeks both and reduction of fracture to your tibia and fibula with swelling after walking for hours in [place] today. States she noticed some increased swelling without pain to her right leg. Denies any chest pain, shortness of breath, dizziness, weakness, or any additional complaints at this time. Related Data Home Medications Medication Instructions Recorded Confirmed prenat.vits,diana,[id number] 1 tab PO DAILY 12/06/21 10/02/22 cetirizine 10 mg capsule (Zyrtec) 10 mg PO DAILY PRN 03/16/22 10/02/22 acetaminophen 500 mg tablet 1,000 mg PO Q6H PRN PRN #0 tabs 07/29/22 10/02/22 ibuprofen 600 mg tablet 600 mg PO Q6H PRN PRN #60 tabs 07/29/22 10/02/22 witch josie 50 % topical pads 1 pad CA PRN PRN Discomfort #0 ea 07/29/22 10/02/22 (Medi-Pads) escitalopram oxalate 10 mg tablet 10 mg PO DAILY #30 tabs 08/13/22 10/02/22 nifedipine 30 mg tablet,extended 30 mg PO DAILY #90 tabs 09/13/22 10/02/22 release copper 380 square mm intrauterine 1 device intrauterine ONCE 09/25/22 10/02/22 device (ParaGard T 380A) Previous Rx's Medication Instructions Recorded acetaminophen 500 mg tablet 1,000 mg PO Q6H PRN PRN #0 tabs 07/29/22 ibuprofen 600 mg tablet 600 mg PO Q6H PRN PRN #60 tabs 07/29/22 witch josie 50 % topical pads 1 pad CA PRN PRN Discomfort #0 ea 07/29/22 (Medi-Pads) escitalopram oxalate 10 mg tablet 10 mg PO DAILY #30 tabs 08/13/22 nifedipine 30 mg tablet,extended 30 mg PO DAILY #90 tabs 09/13/22 release Allergies Allergy/AdvReac Type Severity Reaction Status Date / Time No Known Allergies Allergy Verified 10/02/22 14:17 General Stated Complaint: Orthopedic CHE: 4 PFSH All Active Problems (Updated 10/29/22 @ 21:27 by AFSANEH Monrdagon) Right leg swelling (Acute) Hypertension (Chronic) Perineal pain (Acute) Anxiety (Chronic) SUSSY (stress urinary incontinence, female) (Acute) Swelling of left foot (Acute) Closed fracture of right tibia and fibula (Acute 07/12/22) Fracture of posterior malleolus of right tibia (Acute 07/12/22) care following vaginal delivery (Acute) Medical History Family history of thyroid disease in mother Gestational diabetes mellitus (GDM) affecting 3 hour test F96, 1 h 187, 2h 150, 3h 99 Pre-eclampsia Surgical History Repair of umbilical hernia 2012 [facility] S/P laparoscopy Family History Father Diabetes Hypertension Mother Thyroid disorder Osteoporosis Social History Smoking/Tobacco Use Status: Never Smoking risk assessment performed?: Yes Alcohol Intake: never Drug use: Never Substance use type: does not use current occupation: [employer] Current gender identity: female Do you feel safe at home: Yes Do you feel safe in your relationship?: Yes Female Reproductive History Menstrual control method: none History History 2 Para 3 Hx # Term Pregnancies 3 Multiple births 0 Hx # Pregnancies 0 Ectopic pregnancies 0 AB induced 0 Hx Number of Living Children 3 AB spontaneous 0 Past Pregnancies Del. Date GA/Weeks # Preg Succ Route Wgt Sex Labor Lgth Anesthesia Location [facility] 01/12/05 39 No Yes vaginal 2948.35 g Female 6hr [place], [place] 07/25/22 38 No Yes vaginal Male [facility] - [facility] 07/25/22 38 No Yes vaginal 3390.008 g Male [facility] Delivery Date: 01/12/05 Last Updated by: Ashlyn Blake CNM SROM X 12 hours then augmentation with delivery 6 hours later. Delivery Date: 07/25/22 Last Updated by: Selin Hess MD Induction for PEC, on [facility] Course Vital Signs Vital signs: Vital Signs Temperature 36.9 C 10/29/22 20:40 Pulse 75 10/29/22 20:40 Respiratory Rate 16 10/29/22 20:40 Blood Pressure 117/75 10/29/22 20:40 Pulse Oximetry 100 10/29/22 20:40 Temperature 36.9 C 10/29/22 20:40 Temperature Source Tympanic 10/29/22 20:40 Pulse 75 10/29/22 20:40 Respiratory Rate 16 10/29/22 20:40 Respiratory Effort Normal 10/29/22 20:46 Blood Pressure 117/75 10/29/22 20:40 Pulse Oximetry 100 10/29/22 20:40 Pain Level 0 10/29/22 20:40
--- NOTE | 2022-10-29 21:33 | NUR.NOTE ---
RLE ultrasound requistion faxed to DI to r/o DVT. Copy of req given to patient and advised to call [facility] time after 0700.Nursing Note:
== END 2022-10-29 21:34 | disposition home or self-care (01) ==
PROVIDERS: Emergency Provider Physician Assistant; PCP Nurse Practitioner Family
DX: M79.89 Other specified soft tissue disorders (principal); Z98.890 Other specified postprocedural states
CPT/HCPCS: 99281; 99282

== ENCOUNTER 2022-10-30 13:30 | Emergency (ER) | payer BC, SELFPAY ==
[2022-10-30 13:37] VITALS: PULSE 80; RESP 18; TEMP 36.7; O2SAT 98
--- NOTE | 2022-10-30 14:56 | W.ED.GENAD ---
Discharge Plan Disposition Patient Disposition: Home Discharge Details Chief Complaint: GenMedical Clinical Impression: Right leg swelling Primary Care Provider: Fito Harris ED Provider: Tato Cruz Home Meds and New Rx's Prescriptions: No Action prenat.vits,diana,ywn-aeat-frqys Tablet 1 tab PO DAILY Zyrtec 10 mg capsule 10 mg PO DAILY PRN nifedipine 30 mg tablet extended release 30 mg PO DAILY Qty: 90 1RF ParaGard T 380A 380 square mm intrauterine device 1 device intrauterine ONCE Rx Instructions: as a single dose escitalopram oxalate 10 mg tablet 10 mg PO DAILY Qty: 30 2RF acetaminophen 500 mg Tablet 1,000 mg PO Q6H PRN PRNQty: 0 0RF ibuprofen 600 mg Tablet 600 mg PO Q6H PRN PRNQty: 60 0RF Medi-Pads 50 % Pads, Medicated 1 pad NC PRN PRN (Reason: Discomfort) Qty: 0 0RF Discharge Instructions Instructions: Leg Edema (ED) Additional Instructions: Should you have repeat swelling of the lower extremity repeat ultrasound would be indicated in 7 to 10 days. Consult your primary care provider for further management. Medical Decision Making I was informed by radiology that the Doppler ultrasound of the lower extremity is negative. Explained to patient that should she have repeat swelling that a repeat ultrasound would be indicated. Compressive stockings would be beneficial in her case of swelling in a postsurgical leg. HPI General Date/Time Provider Initiated Documentation: 10/30/22 14:55. HPI Narrative: Patient return to the emergency department for results of the Doppler ultrasound. She experienced right lower extremity leg swelling in the leg that was previously fractured. States that several days ago she had walked [place] extensive [place] and that is when the swelling started. Complains of no chest pain or shortness of breath Related Data Home Medications Medication Instructions Recorded Confirmed prenat.vits,diana,dll-ijfr-fazqo 1 tab PO DAILY 12/06/21 10/02/22 cetirizine 10 mg capsule (Zyrtec) 10 mg PO DAILY PRN 03/16/22 10/02/22 acetaminophen 500 mg tablet 1,000 mg PO Q6H PRN PRN #0 tabs 07/29/22 10/02/22 ibuprofen 600 mg tablet 600 mg PO Q6H PRN PRN #60 tabs 07/29/22 10/02/22 witch josie 50 % topical pads 1 pad NC PRN PRN Discomfort #0 ea 07/29/22 10/02/22 (Medi-Pads) escitalopram oxalate 10 mg tablet 10 mg PO DAILY #30 tabs 08/13/22 10/02/22 nifedipine 30 mg tablet,extended 30 mg PO DAILY #90 tabs 09/13/22 10/02/22 release copper 380 square mm intrauterine 1 device intrauterine ONCE 09/25/22 10/02/22 device (ParaGard T 380A) Previous Rx's Medication Instructions Recorded acetaminophen 500 mg tablet 1,000 mg PO Q6H PRN PRN #0 tabs 07/29/22 ibuprofen 600 mg tablet 600 mg PO Q6H PRN PRN #60 tabs 07/29/22 witch josie 50 % topical pads 1 pad NC PRN PRN Discomfort #0 ea 07/29/22 (Medi-Pads) escitalopram oxalate 10 mg tablet 10 mg PO DAILY #30 tabs 08/13/22 nifedipine 30 mg tablet,extended 30 mg PO DAILY #90 tabs 09/13/22 release Allergies Allergy/AdvReac Type Severity Reaction Status Date / Time No Known Allergies Allergy Verified 10/02/22 14:17 General Stated Complaint: GenMedical CHE: 4 Review of Systems Respiratory Respiratory: Reports as per HPI PFSH All Active Problems (Updated 10/30/22 @ 14:59 by Tato Cruz MD) Right leg swelling (Acute) Hypertension (Chronic) Perineal pain (Acute) Anxiety (Chronic) SUSSY (stress urinary incontinence, female) (Acute) Swelling of left foot (Acute) Closed fracture of right tibia and fibula (Acute 07/12/22) Fracture of posterior malleolus of right tibia (Acute 07/12/22) care following vaginal delivery (Acute) Medical History Family history of thyroid disease in mother Gestational diabetes mellitus (GDM) affecting 3 hour test F96, 1 h 187, 2h 150, 3h 99 Pre-eclampsia Surgical History Repair of umbilical hernia 2012 [facility] S/P laparoscopy Family History Father Diabetes Hypertension Mother Thyroid disorder Osteoporosis Social History Smoking/Tobacco Use Status: Never Smoking risk assessment performed?: Yes Alcohol Intake: never Drug use: Never Substance use type: does not use current occupation: [employer] Current gender identity: female Do you feel safe at home: Yes Do you feel safe in your relationship?: Yes Female Reproductive History Menstrual control method: none History History 2 Para 3 Hx # Term Pregnancies 3 Multiple births 0 Hx # Pregnancies 0 Ectopic pregnancies 0 AB induced 0 Hx Number of Living Children 3 AB spontaneous 0 Past Pregnancies Del. Date GA/Weeks # Preg Succ Route Wgt Sex Labor Lgth Anesthesia Location [facility] 01/12/05 39 No Yes vaginal 2948.[address] [facility], [place] 07/25/22 38 No Yes vaginal Male [facility] 07/25/22 38 No Yes vaginal 3390.008 g Male [facility] Delivery Date: 01/12/05 Last Updated by: Ashlyn Blake CNM SROM X 12 hours then augmentation with delivery 6 hours later. Delivery Date: 07/25/22 Last Updated by: Selin Hess MD Induction for PEC, on Mag Exam Narrative Exam Narrative: No residual right lower extremity edema. No calf tenderness. Postsurgical changes Extrem General: other Course Vital Signs Vital signs: Vital Signs Temperature 36.7 C 10/30/22 13:37 Pulse 80 10/30/22 13:37 Respiratory Rate 18 10/30/22 13:37 Pulse Oximetry 98 10/30/22 13:37 Temperature 36.7 C 10/30/22 13:37 Temperature Source Tympanic 10/30/22 13:37 Pulse 80 10/30/22 13:37 Respiratory Rate 18 10/30/22 13:37 Respiratory Effort Normal 10/30/22 13:40 Respiratory Depth Normal 10/30/22 13:40 Respiratory Pattern Normal 10/30/22 13:40 Pulse Oximetry 98 10/30/22 13:37 Oxygen Delivery Method Room Air 10/30/22 13:37 Oxygen Flow Rate 0 10/30/22 13:37 Pain Level 0 10/30/22 13:37
== END 2022-10-30 15:04 | disposition home or self-care (01) ==
PROVIDERS: Emergency Provider Emergency Medicine; PCP Nurse Practitioner Family
DX: R60.0 Localized edema (principal); Z71.2 Person consulting for explanation of examination or test findings; Z87.81 Personal history of (healed) traumatic fracture
CPT/HCPCS: 99281; 99282

== ENCOUNTER 2022-12-29 23:48 | Emergency (ER) | payer BC, SELFPAY ==
--- NOTE | 2022-12-29 23:45 | RT.EKG_ITS ---
APPROVED REPORT Exam: Resting ECG Reason for Exam: heart feels funny Patient Location: E HR:[id number] bpm ECG Measurements Heart Rate [id number] AXIS VT [id number] P [id number] QRSd [id number] QRS [id number] QT [id number] T [id number] QTc 0 Conclusion Not a interpretable ECG
[2022-12-29 23:53] VITALS: BP 122/73; PULSE 104; RESP 19; O2SAT 100
[2022-12-29 23:57] VITALS: O2SAT 100
[2022-12-30] VITALS (21 sets, daily range): BP systolic 97–118; BP diastolic 60–78; PULSE 69–90; RESP 17–27; O2SAT 97–100
[2022-12-30 00:11] LABS: HCT 38.6 % (36.0-46.0); HGB 12.5 g/dL (11.2-15.7); MCH 26.2 pg (27.0-33.0); MCHC 32.4 % (32.0-36.0); MCV 81 fL (80-95); MPV 11.4 fL (8.0-11.0); Platelet Count 210 10^3/uL (130-400); RBC 4.77 10^6/uL (3.93-5.22); RDW 14.8 % (11.7-14.6); RDW-SD 43.6 fL; WBC 8.68 10^3/uL (4.4-10.8)
--- NOTE | 2022-12-30 00:29 | ED.GENADUL_ITS ---
Discharge Plan Disposition Patient Disposition: Home Discharge Details Chief Complaint: Palpitatns Clinical Impression: Heart palpitations, Chest pain Primary Care Provider: Fito Harris ED Provider: Melisa Shea Home Meds and New Rx's Prescriptions: No Action Zyrtec 10 mg capsule 10 mg PO DAILY PRN nifedipine 30 mg tablet extended release 30 mg PO DAILY Qty: 90 1RF ParaGard T 380A 380 square mm intrauterine device 1 device intrauterine ONCE Rx Instructions: as a single dose escitalopram oxalate 10 mg tablet 10 mg PO DAILY Qty: 30 2RF acetaminophen 500 mg Tablet 1,000 mg PO Q6H PRN PRNQty: 0 0RF ibuprofen 600 mg Tablet 600 mg PO Q6H PRN PRNQty: 60 0RF Discharge Instructions Instructions: Chest Pain (ED), Heart Palpitations (ED) Additional Instructions: 1. Avoid alcohol, caffeine, decongestants, or diet aids. 2. If you develop palpitations again take your pulse and monitor whether the rhythm is irregular, fast or both. 3. Keep your appointment with your primary care provider and return to the emergency department for any new or worrisome symptoms. Discharge Data Discharge Physician: Melisa Shea Medical Decision Making This is a 42-year-old female who is 5 months who presents with palpitations and chest tightness. She has had these symptoms for many months but tonight had associated dizziness and came in for evaluation. Her exam is reassuring. She is not currently experiencing any chest pain and she is in a normal sinus rhythm. She has had caffeine today but has not had any diet pills or other stimulants. She has lost weight although this was intentional after giving . She is not breast-feeding. We will check a CBC because anemia could cause tachycardia. We will check a TSH as well as electrolyte's and renal function. I will order a chest x-ray to rule out cardiomegaly, pneumonia or pneumothorax. If her initial troponin is normal she will have a low heart score. If her first troponin is negative we will do a 3-hour troponin. She does have some slight ST elevation on her EKG but it is no more than 1 mm Differential Diagnosis Differential Diagnosis: ACS, arrhythmia, hyperthyroidism, anemia, electrolyte abnormality, anxiety Medical Records Medical records reviewed: Yes I reviewed the patient's medical records. Imaging Data Radiologic Study: Imaging: X-Ray Radiologist's impression: Ari silva impression: Hypoaerated lungs. No acute cardiopulmonary abnormality. Lab Data Lab results reviewed: Yes I reviewed the patient's lab results. Lab results narrative: No clinically significant lab abnormalities. Initial troponin and D-dimer are negative. ECG Data Attestation: I personally reviewed and interpreted this ECG (s) as follows: Prior ECG tracings: not available for review Interpretation: Sinus tachycardia at 102. Normal axis normal intervals. [address] elevation in V1 and V2. Less than [address] depression in leads III and aVF. Borderline short MO interval. Nonsignificant Q waves in leads II, III, aVF, V3 through V6. HPI General Date/Time Provider Initiated Documentation: 12/30/22 00:29 . Limitations to Documentation: no limitations . Information obtained by: patient and family . History of Present Illness with intensity rated at 6. Quality is described as other (Chest tightness), and it has been now resolved. No relieving factors improve symptom(s), HPI Narrative: Time seen was 12:30 AM in bed 1. The patient is a 42-year-old [id number] female who presents with chest discomfort and palpitations. She tells me that she has had the symptoms for about 5 months but today felt lightheaded and came in for evaluation. She saw her primary care provider in November and has a follow-up next month. She believes she is scheduled for outpatient cardiac monitoring. The patient is a -2-0-2 who just finished her menstrual period. She has an IUD but does have regular periods. She is 5 months . She did develop preeclampsia and was started on nifedipine which was continued after her for continued hypertension. She tells me she has had intermittent palpitations for about 5 months. Today while at rest, at approximately 9 PM she began having palpitations with chest tightness which was located around the left breast and radiated to the left shoulder. The pain was 6 out of 10 in severity and lasted about an hour. She tells me that her grandfathers had heart disease and her mother has some sort of dysrhythmia but has never had an WI. The patient had gestational diabetes but is not diabetic and does not take medication or insulin for diabetes. She does not use cocaine. She does not smoke. She does not have hyperlipidemia. She is not nursing. She tells me that she feels as though sometimes she has racing heart and at other times she feels as though there are extra beats. She also tells me she has a history of anxiety and has difficulty differentiating whether her palpitations and chest discomfort are secondary to anxiety or not. She denies any leg pain, pleuritic chest pain or shortness of breath. She does not drink excessive amounts of caffeine but did have a drink that was an espresso drink which she tells me was half decaf. She takes Zyrtec but does not take any decongestants or sympathomimetics. She does not take any dietary aids. She has lost weight since giving but this has been intentional. She denies any fevers or chills. She denied any shortness of breath or URI symptoms. No sore throat or neck swelling. No abdominal pain. No blood noted in stools. The patient has a history of an ankle fracture in June of last year while she was . She states she slipped on ice while walking the dogs. She did require surgery. She has chronic intermittent swelling of the right lower extremity. She has been seen for right lower extremity swelling in the past and had a ultrasound which was negative for DVT. She denies any new swelling or leg pain. Related Data Home Medications Medication Instructions Recorded Confirmed cetirizine 10 mg capsule (Zyrtec) 10 mg PO DAILY PRN 03/16/22 12/30/22 acetaminophen 500 mg tablet 1,000 mg PO Q6H PRN PRN #0 tabs 07/29/22 12/30/22 ibuprofen 600 mg tablet 600 mg PO Q6H PRN PRN #60 tabs 07/29/22 12/30/22 escitalopram oxalate 10 mg tablet 10 mg PO DAILY #30 tabs 08/13/22 12/29/22 nifedipine 30 mg tablet,extended 30 mg PO DAILY #90 tabs 09/13/22 12/29/22 release copper 380 square mm intrauterine 1 device intrauterine ONCE 09/25/22 12/30/22 device (ParaGard T 380A) Previous Rx's Medication Instructions Recorded acetaminophen 500 mg tablet 1,000 mg PO Q6H PRN PRN #0 tabs 07/29/22 ibuprofen 600 mg tablet 600 mg PO Q6H PRN PRN #60 tabs 07/29/22 escitalopram oxalate 10 mg tablet 10 mg PO DAILY #30 tabs 08/13/22 nifedipine 30 mg tablet,extended 30 mg PO DAILY #90 tabs 09/13/22 release Allergies Allergy/AdvReac Type Severity Reaction Status Date / Time No Known Allergies Allergy Verified 10/02/22 14:17 General Stated Complaint: Palpitatns CHE: 3 Review of Systems Constitutional Constitutional: Reports difficulty sleeping, Denies fever(s), Denies headache(s) and Reports weight loss (Intentional. She is not sure how much weight she has lost) Eyes Eyes: Reports as per HPI ENT Ears, Nose, Mouth, and Throat: Reports dizziness, Reports otalgia, Denies headache(s), Denies hearing loss, Reports sinus pain, Reports sinus pressure, Reports sore throat and Reports tongue swelling Cardiovascular Cardiovascular: Denies acrocyanosis, Reports chest pain, Reports palpitations and Denies dyspnea Comments: Chest tightness palpitations as per HPI Respiratory Respiratory: Denies cough and Denies dyspnea Gastrointestinal Gastrointestinal: Denies abdominal pain Genitourinary Comments: No urinary symptoms. Musculoskeletal Musculoskeletal: Denies abnormal gait and Denies numbness Comments: Chronic right lower extremity swelling Integumentary/Breasts Comments: No rashes Neurologic Neurologic: Denies abnormal speech, Denies abnormal gait, Reports dizziness, Denies headache(s), Denies numbness and Denies paresthesias Endocrine Endocrine: Reports palpitations Hematologic/Lymphatic Comments: The patient is not on therapeutic anticoagulants. Allergic/Immunologic Allergic/Immunologic: Reports tongue swelling PFSH All Active Problems (Updated 12/30/22 @ 03:57 by Melisa Shea MD) Heart palpitations (Acute) Chest pain (Acute) Hypertension (Chronic) Perineal pain (Acute) Anxiety (Chronic) SUSSY (stress urinary incontinence, female) (Acute) Swelling of left foot (Acute) Closed fracture of right tibia and fibula (Acute 07/12/22) Fracture of posterior malleolus of right tibia (Acute 07/12/22) care following vaginal delivery (Acute) Medical History Family history of thyroid disease in mother Gestational diabetes mellitus (GDM) affecting 3 hour test F96, 1 h 187, 2h 150, 3h 99 Pre-eclampsia Surgical History Repair of umbilical hernia 2011 COUNT INCLUDES THE [facility] S/P laparoscopy Family History Father Diabetes Hypertension Mother Thyroid disorder Osteoporosis Social History Smoking/Tobacco Use Status: Never Smoking risk assessment performed?: Yes Alcohol Intake: never Drug use: Never Substance use type: does not use current occupation: [employer] Current gender identity: female Do you feel safe at home: Yes Do you feel safe in your relationship?: Yes Female Reproductive History Menstrual control method: copper IUCD History History 2 Para 3 Hx # Term Pregnancies 2 Multiple births 0 Hx # Pregnancies 0 Ectopic pregnancies 0 AB induced 0 Hx Number of Living Children 2 AB spontaneous 0 Past Pregnancies Del. Date GA/Weeks # Preg Succ Route Wgt Sex Labor Lgth Anesth esia Location Prov Complic 01/12/05 39 No Yes vaginal 2948.35 g Female 6hr [place], [place] 07/25/22 38 No Yes vaginal 3390.008 g Male [facility] Delivery Date: 01/12/05 Last Updated by: Ashlyn Blake CNM SROM X 12 hours then augmentation with delivery 6 hours later. Exam Narrative Exam Narrative: The patient is a well-developed well-nourished female who is alert and oriented in no acute distress. She does appear mildly anxious. Initially she was slightly tachycardic at 104. Her last blood pressure was 97/63 which is normal for a woman of her stature. She was not dizzy at this time. Room air O2 sat was 100%. Const General: cooperative, healthy appearing, comfortable, no acute distress, well developed, well groomed and well hydrated Nutritional Appearance: average body habitus and well nourished Orientation: alert, awake and oriented x3 HENMT Head: normal to inspection, normocephalic and atraumatic Ears: hearing grossly normal bilaterally and external ears normal General nose exam: external nose normal, nares normal and no nasal discharge Face and sinus: normal facial exam, sinuses nontender and face symmetric Mouth: oral mucosae normal, lip normal, tongue normal, oropharynx normal, moist mucous membranes and other (Normal phonation. The patient is handling secretions.) Throat: posterior oropharynx normal and uvula midline Eyes General: appearance normal, both eyes and all related structures Eyelids: eyelids normal Conjunctivae: conjunctivae normal Sclera: sclerae normal Cornea: corneas normal Pupils: PERRL EOM: EOM intact bilaterally and No nystagmus Neck Neck: normal visual inspection, full ROM, no lymphadenopathy, no meningeal signs, trachea midline and supple Lymphatic: no lymphadenopathy noted Chest Chest: normal inspection of the chest Resp Effort & Inspection: normal respiratory effort, able to speak in complete se ntences, no audible wheezes, no nasal flaring, no respiratory distress, no retractions, no stridor, not tachypneic, no tracheal deviation, no use of accessory muscles, No prolonged expiratory phase and other (Normal inspiratory to expiratory ratio.) Auscultation: clear to auscultation bilaterally, no rales, no rhonchi, no wheezes and no rubs Tactile Fremitus: tactile fremitus absent Cardio Jugular venous pressure: no JVD Palpation: normal PMI Rate: regular rate Rhythm: regular rhythm Heart Sounds: S1 normal, S2 normal, no gallops, no murmurs and no rubs Pulses: radial pulses present GI Inspection: non-distended Palpation: soft, no hepatosplenomegaly, no guarding and nontender Percussion: normal to percussion Auscultation: normal bowel sounds General: No CVA tenderness Back/Spine/Pelvis Back: no CVA tenderness and No back tenderness Cervical Spine: normal cervical lordosis, cervical ROM normal, No cervical muscular tenderness, No pain with cervical ROM, No cervical spinal tenderness and No step off deformity Thoracic/Lumbar Spine: thoracic and lumbar spine normal to inspection, No thoracic spinal tenderness and No lumbar spinal tenderness Pelvis: no pain with anterior-posterior compression and no pain with lateral compression Skin General skin exam: no rashes or lesions noted, turgor normal, no petechiae, no purpura and other (Skin is normal for ethnicity.) Lesions: no lesions Rashes: no rashes Trauma: no lacerations or abrasions Neuro General: patient alert, patient awake, patient oriented x3, moves all extremities, no meningeal signs, no focal motor deficits and CN's II-XI intact bilaterally Cranial Nerves: CN's II-XI intact bilaterally, PERRL, accommodation normal, EOM intact bilaterally, no nystagmus, facial strength normal, tongue midline, hearing normal and no nystagmus Cognition: normal cognition Speech: speech normal Motor: muscle tone normal throughout and strength 5/5 throughout Sensory Exam: no sensory deficits noted Extrem General: normal to inspection, full ROM, capillary refill normal and no calf tenderness Other: The right lower extremity reveals very mild peripheral edema. No Homans signs or cords. She has well-healed surgical scars on the medial aspect of the right ankle Psych Appearance: grossly normal, well kempt and other (She appears mildly anxious) Affect: normal affect Attitude: cooperative Thought Process: normal Thought Content: normal Insight: insight good Judgment: judgment good Other: The patient appears to have capacity make medical decisions. Course Reevaluation(s) Time: 03:49 Reevaluation: I have reevaluated the patient and discussed her labs, x-rays and EKG. Her heart score is low. She is not having any further chest pain or palpitations. I have advised her to keep her follow-up appointment with her primary care provider. I have advised her to avoid stimulants such as caffeine, decongestants, or weight loss products. I have advised her not to drink alcohol and instructed her how to take her pulse and to monitor whether it is an irregular pulse or just a fast pulse. The patient voiced understanding agreement with the discharge plan. All her questions and concerns were addressed prior to discharge Vital Signs Vital signs: Vital Signs Pulse 104 H 12/29/22 23:53 Respiratory Rate 19 12/29/22 23:53 Blood Pressure 122/73 12/29/22 23:53 Pulse Oximetry 100 12/29/22 23:53 Pulse 104 H 12/29/22 23:53 Respiratory Rate 19 12/29/22 23:53 Respiratory Effort Normal 12/30/22 00:07 Blood Pressure 122/73 12/29/22 23:53 Pulse Oximetry 100 12/29/22 23:53 Oxygen Delivery Method Room Air 12/29/22 23:53 Oxygen Flow Rate 0 12/29/22 23:53 Lab/Test Results Lab/Test Results: Laboratory Tests Range/Units 12/30/22 00:02 WBC (4.4-10.8) 10^3/uL 8.68 RBC (3.93-5.22) 10^6/uL 4.77 Hgb (11.2-15.7) g/dL 12.5 Hct (36.0-46.0) % 38.6 MCV (80-95) fL 81 MCH (27.0-33.0) pg 26.2 L MCHC (32.0-36.0) % 32.4 RDW (11.7-14.6) % 14.8 H Plt Count (130-400) 10^3/uL 210 MPV (8.0-11.0) fL 11.4 H
[2022-12-30 00:37] LABS: ALT 19 U/L (14-59); AST 11 U/L (15-37); Albumin 4.2 g/dL (3.4-5.0); Alkaline Phosphatase 73 U/L (46-116); Anion Gap 8.6 mmol/L (3-11); BUN 18 mg/dL (7-18); Bilirubin, Total 0.3 mg/dL (0.2-1.0); CO2 27.4 mmol/L (21.0-32.0); Calcium 9.2 mg/dL (8.5-10.1); Chloride 104 mmol/L (98-107); Estimated GFR 72.13 (mL/min/1.73m2); Glucose 111 mg/dL (74-106); Potassium 3.6 mmol/L (3.5-5.1); Sodium 140 mmol/L (136-145); TSH 1.66 uIU/mL (0.36-3.74); Total Protein 7.8 g/dL (6.4-8.2)
[2022-12-30 00:39] LABS: Troponin I < 50 ng/L (<or=60)
--- NOTE | 2022-12-30 00:45 | DI.RAD_ITS ---
Exam(s) XR CHEST 2V PA LATERAL EXAM: XR CHEST 2V PA LATERAL CLINICAL HISTORY: Chest pain, palpitations TECHNIQUE: 2D digital imaging was performed. COMPARISON: CR XR CHEST 2V PA LATERAL from 04/28/2021 FINDINGS: HEART: Normal size. Aorta: Not dilated. PULMONARY VASCULATURE: Normal. LUNGS: Clear. PLEURAL SPACE: No pleural effusion or pneumothorax. BONE:Unremarkable for age. IMPRESSION: No acute abnormality. DATA REPOSITORY: RADIATION DOSE DELIVERED:
[2022-12-30 01:02] LABS: Abs Immature Grans 0.02 10^3/uL (0.0-0.06); Absolute Basophil Count 0.05 10^3/uL (0.0-0.2); Absolute Eosinophil Count 0.14 10^3/uL (0.0-0.7); Absolute Lymphocyte Count 3.49 10^3/uL (1.2-3.4); Absolute Monocyte Count 0.69 10^3/uL (0.1-0.8); Absolute Neutrophil Count 3.94 10^3/uL (1.2-6.7); Basophils % 0.6; Eosinophils % 1.7; Immature Grans % 0.2; Lymphocytes % 41.9; Monocytes % 8.3; Neutrophils % 47.3
[2022-12-30] MEDS: Aspirin 81 MG CHEW 324 MG CH (01:03)
--- NOTE | 2022-12-30 01:35 | DI.VRAD_ITS ---
PROCEDURE INFORMATION: Exam: XR Chest Exam date and time: 12/30/2022 1:20 AM Age: 42 years old Clinical indication: Pain; Chest pressure TECHNIQUE: Imaging protocol: Radiologic exam of the chest. Views: 2 views. COMPARISON: CR XR CHEST 2V PA LATERAL 04/28/2021 11:58 AM FINDINGS: Lungs: Lungs are hyperaerated. No consolidation. No vascular congestion. Pleural spaces: Unremarkable. No pleural effusion. No pneumothorax. Heart/Mediastinum: Unremarkable. No cardiomegaly. Bones/joints: Unremarkable. IMPRESSION: Hyperaerated lungs. No acute cardiopulmonary abnormality. Dictated and Authenticated by: Ajay Carolina MD. Ordering:CRISTEL Vincent MD
[2022-12-30 01:40] LABS: D-Dimer 193 ng/mlFEU (<500)
[2022-12-30 03:20] LABS: Troponin I < 50 ng/L (<or=60)
== END 2022-12-30 04:03 | disposition home or self-care (01) ==
PROVIDERS: Emergency Provider Emergency Medicine Emergency Medical Services; PCP Nurse Practitioner Family
DX: R07.9 Chest pain, unspecified (principal); R00.2 Palpitations; R42 Dizziness and giddiness
CPT/HCPCS: 80053; 85027; 93005; 99284; 71046; 84443; 84484; 85007; 85379; 93010

== ENCOUNTER 2023-01-02 08:58 | Outpatient (CLI) | payer BC, SELFPAY ==
--- NOTE | 2023-01-02 08:30 | DI.RAD_ITS ---
Exam(s) XR TIB/FIB RT EXAM: XR TIB/FIB RT INDICATION: tib/fib f/u. COMPARISON: CR XR TIB/FIB RT from 10/02/2022 TECHNIQUE: 2D digital imaging was performed. Two views. FINDINGS: An intramedullary sammy is again noted through the tibia. There has been continued healing at the tibi al fracture. Continued healing also noted at the proximal fibular fracture. The knee and ankle are unremarkable. No new findings. DATA REPOSITORY: RADIATION DOSE DELIVERED:
== END 2023-01-02 08:59 | disposition home or self-care (01) ==
LOC: DIORS 08:58
PROVIDERS: PCP Nurse Practitioner Family; Referring Provider Nurse Practitioner Family; Visit Provider Student in an Organized Health Care Education/Training Program
DX: S82.391D Other fracture of lower end of right tibia, subsequent encounter for closed fracture with routine healing (principal); Z98.890 Other specified postprocedural states; X58.XXXD Exposure to other specified factors, subsequent encounter
CPT/HCPCS: 73590

== ENCOUNTER 2023-02-22 09:43 | Outpatient (CLI) | payer BC, SELFPAY ==
[2023-02-22 08:35] LABS: HCT 37.5 % (36.0-46.0); HGB 12.1 g/dL (11.2-15.7); MCH 26.7 pg (27.0-33.0); MCHC 32.3 % (32.0-36.0); MCV 83 fL (80-95); MPV 11.4 fL (8.0-11.0); Platelet Count 184 10^3/uL (130-400); RBC 4.53 10^6/uL (3.93-5.22); RDW 14.4 % (11.7-14.6); RDW-SD 43.9 fL; WBC 5.69 10^3/uL (4.4-10.8)
[2023-02-22 09:15] LABS: BUN 17 mg/dL (7-18); CREATININE 0.9 mg/dL (0.55-1.02); Calcium 8.6 mg/dL (8.5-10.1); Calculated LDL 69 mg/dL (<100); Chloride 105 mmol/L (98-107); Cholesterol 121 mg/dL (<200); Estimated GFR 81.86 (mL/min/1.73m2); Glucose 103 mg/dL (74-106); HDL Cholesterol 44 mg/dL (40-60); Potassium 3.9 mmol/L (3.5-5.1); Sodium 136 mmol/L (136-145); Triglyceride 40 mg/dL (<150)
[2023-02-22 09:34] LABS: Hemoglobin A1C 5.4 % (<5.7)
== END 2023-02-22 09:44 | disposition home or self-care (01) ==
LOC: LBO 09:43
PROVIDERS: PCP Nurse Practitioner Family; Visit Provider Nurse Practitioner Family
DX: R73.03 Prediabetes (principal); I10 Essential (primary) hypertension; E66.9 Obesity, unspecified; O24.419 Gestational diabetes mellitus in pregnancy, unspecified control; Z13.1 Encounter for screening for diabetes mellitus
CPT/HCPCS: 36415; 80048; 80061; 85027; 83036

== ENCOUNTER 2023-03-06 03:54 | Outpatient (CLI) | payer BC, SELFPAY ==
[2023-03-06 13:48] LABS: Abs Immature Grans 0.01 10^3/uL (0.0-0.06); Absolute Basophil Count 0.03 10^3/uL (0.0-0.2); Absolute Eosinophil Count 0.05 10^3/uL (0.0-0.7); Absolute Lymphocyte Count 1.75 10^3/uL (1.2-3.4); Absolute Monocyte Count 0.42 10^3/uL (0.1-0.8); Absolute Neutrophil Count 3.86 10^3/uL (1.2-6.7); Basophils % 0.5; Eosinophils % 0.8; HCT 36.6 % (36.0-46.0); HGB 11.9 g/dL (11.2-15.7); Immature Grans % 0.2; Lymphocytes % 28.6; MCH 26.6 pg (27.0-33.0); MCHC 32.5 % (32.0-36.0); MCV 82 fL (80-95); MPV 11.6 fL (8.0-11.0); Monocytes % 6.9; Platelet Count 176 10^3/uL (130-400); RBC 4.48 10^6/uL (3.93-5.22); RDW 14.1 % (11.7-14.6); RDW-SD 41.9 fL; WBC 6.12 10^3/uL (4.4-10.8)
[2023-03-06 14:26] LABS: C-Reactive Protein 0.06 mg/dL (0.0-0.3)
[2023-03-06 15:24] LABS: ESR (LRH) 2 mm/hr
== END 2023-03-06 03:55 | disposition home or self-care (01) ==
LOC: LBO 03:54
PROVIDERS: PCP Nurse Practitioner Family; Visit Provider Student in an Organized Health Care Education/Training Program
DX: Z01.818 Encounter for other preprocedural examination (principal)
CPT/HCPCS: 36415; 85652; 85025; 86140

== ENCOUNTER 2023-03-06 14:41 | Outpatient (CLI) | payer BC, SELFPAY ==
--- NOTE | 2023-03-06 14:30 | DI.RAD_ITS ---
Exam(s) XR TIB/FIB RT EXAM: XR TIB/FIB RT CLINICAL HISTORY: pain. TECHNIQUE: 2D digital imaging was performed of the right tibia and fibula. Three images were obtaine d. AP and lateral views were obtained. COMPARISON: CR XR TIB/FIB RT from 10/02/2022 CR XR TIB/FIB RT from 01/02/2023 FINDINGS: BONES: No acute fracture is present. There is again seen an ORIF of the tibia. Orthopedic hardware a ppears in good position. Both the proximal fibular and the tibial fractures appear well healed. No new fracture is seen. Visualized portion of knee and ankle joints are unremarkable. SOFT TISSUE: Normal. IMPRESSION: No acute abnormality. DATA REPOSITORY: RADIATION DOSE DELIVERED:
== END 2023-03-06 14:42 | disposition home or self-care (01) ==
LOC: DIORS 14:42
PROVIDERS: PCP Nurse Practitioner Family; Visit Provider Physician Assistant
DX: Z98.890 Other specified postprocedural states (principal); S82.452D Displaced comminuted fracture of shaft of left fibula, subsequent encounter for closed fracture with routine healing
CPT/HCPCS: 73590

== ENCOUNTER 2023-04-29 14:22 | Outpatient (REF) | payer BC, SELFPAY ==
--- OUTSIDE RECORDS SUMMARY | 2023-04-29 14:24 | XMS_ITS | Continuity of Care Document ---
Author Name Unknown Organization [facility] Address [address] [place] [address] Care Team Providers Care Operations Tech Name Role Phone Fito Harris Primary Care Physician [phone] Encounter [facility] [id number] Date(s): 03/14/23 - 03/14/23 [facility] [address] [place] [address] Encounter Diagnosis Heart palpitations(Discharge Diagnosis) - 03/14/23 Discharge Disposition: Home or Self Care Attending Physician: Carmela Overton NP Referring Physician: Fito Harris MOTOR VEHICLE TECHNICIAN Allergies, Adverse Reactions, Alerts Substance Reaction Severity Status LATEX Unknown Active sulfamethoxazole-trimethoprim Urticaria Moderate Active Assessment and Plan Future Appointments Future Scheduled Tests Laboratory* Basic Metabolic Panel 11/19/22 * Lipid Panel 11/19/22 * Hemoglobin A1c 12/26/22 Immunizations Given and Recorded Vaccine Date Status Refusal Reason SARS-CoV-2 (COVID-19) mRNA-1273 vaccine 10/04/20 R ecorded SARS-CoV-2 (COVID-19) mRNA-1273 vaccine 09/09/20 R ecorded tetanus/diphth/pertuss (Tdap) adult/adol 11/20/18 Recorded tetanus/diphth/pertuss (Tdap) adult/adol 07/08/08 Recorded tetanus-diphth toxoids (Td) adult/adol 05/20/98 Re corded Not Given Vaccine Date Status Refusal Reason influenza, unspecified formulation 1 11/27/21 Not Given Patient Refuses 1Result Comment: Patient declined - 04/29/2020 Medications multivitamin adult, oral tablet 1 tab, Oral, Daily Start Date: 11/27/21 Status: Ordered NIFEdipine (Eqv-Adalat CC) 30 mg oral tablet, extended release 1 tab, Oral, Daily, # 90 tab, 1 Refill(s), [facility]: [facility] Start Date: 02/12/23 Status: Ordered Problem List Condition Confirmation Course Effective Dates Status Health St [facility] Informant Anxiety Confirmed Active ADHD Confirmed Active Hypertension Confirmed Active Obesity Confirmed Active Heart palpitations Confirmed Active Pre-diabetes Confirmed Active Procedures Procedure Date Related Diagnosis Body Site Status Umbilical Herniorrhaphy with Prolene Mesh 11/14/10 Completed Laparoscopic ablation of pel kasie endometriosis 01/17/00 Completed Vital Signs Most recent to oldest [Reference Range]: 1 Peripheral Pulse Rate [60-100 bpm] 86 bp m (03/14/23 12:22 PM) Blood Pressure [90-140/60-90 mmHg] 127/8 0mmHg (03/14/23 12:22 PM) Mean Arterial Pressure, Cuff [65-140 mmH g] 96 mmHg (03/14/23 12:22 PM) Weight 63 kg (03/14/23 12:22 PM) Weight Measured (lbs) 138.891 lb (03/14/23 12:22 PM) Social History Social History Type Response Tobacco Never tobacco user T obacco Use:. Sex Female Physician Outpatient Note * Carmela Overton MOTOR VEHICLE TECHNICIAN: PERFORM Event Display: Office Clinic Note Physician Authored Date: [id number] LIZY GALEANA :1980 Age:42 years Sex:Female Visit Date:03/14/2023 Primary Care Physician: Fito Harris NP History of Present Illness Cardiac Problems: 1.Palpitations 2.Hypertension-nifedipine 30mg 3.Obesity 4.Prediabetes ? This is a 42-year-old female that is new to the office and referred by her PCP for tachycardia, palpitations, and hypertension. Lizy??reported to her PCP??that her heart rate will spike??up to??100 bpm??and return??after 10 minutes.?? While she was at PT it was recommended??to ask about having astress test done.?? She had a Holter monitor placed that was reassuring and showed Heart rate of 64to 174 bpm, average 88 bpm.?? Predominantly sinus rhythm, rare PACs/PVCs.?? Total of 7 patient triggers correlating with sinus and SVE's.Did have diabetes and preeclampsia and was started on nifedipine which was continued after for continued hypertension.?? She reports intermittent palpita tions for about 5 months. ??She is here today for sudden tachycardia and dyspnea on exertion.?? Shehas been on nifedipine 30 mg. ?? She states that she has been doing fine??lately. ??She does state that she??gets a heaviness and tightness in her chest about once a month??which coincides with fluttering. ??This fluttering lasts??seconds to a minute??and does make her anxious.?? She??does not experience dyspnea, dizziness, nausea??or??syncope with this??tightness.?? She??first noticed this with??going to PT her heart rate??would jump to 180 to 190 bpm??and her physical therapist said that it was spiking quickly that she should possibly get this checked.?? She has been experiencing??lightheadedness more frequently??in the shower??the past week??as well as 3 times??sitting at work??she feels??lightheaded.?? No chest pain or shortness of breath along with this lightheadedness.?? When asked about chest pain she reported some tightness that??was about 5 out of 10 rating??but did not come with dyspnea/dizziness/lightheadedness/nausea??or radiation. ??Her back is always tight??due to having to sit for long periods of timesat a computer.?? This chest tightness??lasted 1 to 2 minutes and started??this year.?? Her breathing is usually??okay but she will get short of breath??if she has to go up her??12 steps to her apartment??frequently??and multiple times.?? She states I??feel out of shape.? She did??break her leg when she was 36 weeks?so she is recovering from pins and rods in her right leg. ??The goal is to have these pins and rods removed but needs??surgical evaluation by cardiology??due to these palpitations prior to??going forward with surgery??she states currently that??she does get short of breath going up 2 flights of stairs, no chest pain??but does not know if that is related to her heart or being??out of shape.?? She denies syncope,??PND, and edema. ?? She is currently going to physical therapy??for her leg??3 times a week, she does not attend 1 with??a PT??provider but does not at home with the stretches??and walking. ??She thinks she is walking at 1 time for about 10 minutes. ??She does not get??any chest pain with this but does get short of shobha ath. ??She did notice prior to breaking her leg that with mountain biking she did find herself short of breath with this.?? She is not taking her blood pressure at home but is??typically??in the office less than 120 systolic. ?? She comments that her mom has a heart disease that it is hard and there is no cure for it??and worries that she is going to have a similar??disease??with palpitations. Review of Systems A complete review of systems is negative other than as noted in the history of present illness. Physical Exam Vitals & Measurements HR:??86??(Peripheral)?? BP:??127/80?? SpO2:??98%?? WT:??63??kg?? HEENT: Normocephalic, atraumatic Respirations: Clear to auscultation bilaterally with no wheezes rubs or rhonchi Cardiac: Regular rate and rhythm, normal S1, S2, no murmurs gallops or rubs Abdomen: Nontender nondistended normal active bowel sounds Extremities: 2+ dorsalis pedis pulses bilaterally with no significant edema Medical Decision Making Data Review: 12/29/2022.?? ER at [facility].?? Heart palpitations and chest pain occurring for months but now associated with dizziness.?? ECG with sinus tachycardia at 102 bpm axes and overall is within normal limits,with slight ST elevation of less than 1 mm in lead V1 and V2.?? Chest x-ray shows no acute cardiopulmonary abnormality. 12/31/2022 [facility].?? Heart rate of 64 to 174 bpm, average 88 bpm.?? Predominantly sinus rhythm, rare PACs/PVCs.?? Total of 7 patient triggers correlating with sinus and SVE's. 02/22/2023. ??Labs.?? Calcium,??glucose, kidney function all normal. ??Cholesterol normal. ??Electrolytes in normal range.?? A1c normal. ??CBC normal, anemia normal.?? 03/14/2023: EKG:??Sinus rhythm 82 bpm,??short CT interval at 89 ms, axes and intervals within normal limits. ?? 42-year-old female with tachycardia and GALLEGOS ? Dyspnea on exertion:??She states this shortness of breath has??started to occur within the past year??and??does not know if it is because she is out of shape after being and breaking her leg??or his related to these palpitations.?? She already has a treadmill stress test ordered for April 08, 2023, but with this new onset of dyspnea I am going to order an echocardiogram to look at thestructure and function of her heart. ?? Palpitations:??We went over the results of her ZIO monitor at length today to??help her understand PACs/PVCs. ??I explained that these are normal rhythm??that are more annoying than anything else andthat we do not like to treat them unless symptoms are completely unmanageable.?? What we would do is discontinue her nifedipine and put her on a rate control calcium channel chuck like Cardizem.?? She states that??she would rather not take anything and would prefer no meds. ??Her goal is to not have to take any blood pressure medicine??at all. ??She states that the palpitations happen so infrequ ently??that she thinks she can manage the symptoms at this time.?? She states that she is more concerned with the lightheadedness??as of yet??which we will work-up.?? She again??was glad for the reassurance that??this was a normal rhythm??and does not??increase her odds of a heart attack or a stroke. ??She is not going to change her medication at this point but knows that if she does increase thesymptoms of her palpitations we can always switch to Cardizem 120 mg.?? I encouraged her to monitorher blood pressure at home so we can look at the averages at her next appointment.?? I would like to see her??after her treadmill stress test and her echocardiogram is completed, she would like to get the surgery??as soon as possible to remove the??screws and rods from her leg??so I am hoping for it to be in April.? Preoperative:??At this time she is reporting dyspnea on exertion as well as some chest tightnessthat is 5 out of 10??occurring??that we would like to rule out for cardiac etiology. ??We have ordered a stress test as well as an echocardiogram today.?? It would be good to??put for surgery on holduntil we get the results of these tests.?? She??states that she cannot walk up 2 flights of stairs now getting short of breath, but she does not experience chest pain.?? I will see her in 2 months hopefully??if not 3 to go over the results of her stress test and at that point we can reexamine??moving forward with her surgery. ??It was a pleasure to meet Lizy she knows to call in with any questions or concerns in the meantime. Clinic Assessment/Plan Heart palpitations??R00.2 Actions: COMPLETED - 87847 Office/Outpatient Visit - Established Patient, Level 4 (30-39 min)., 03/14/23 12:18:00 EDT, Heart palpitations FUTURE - Follow-Up Appointment Request RUDDY, *Est. 04/22/23 +/- 14 days, Future Order, In [facility], [facility] ?? Additional Actions: FUTURE - Echocardiogram Complete, 03/14/23, Other, Please Specify, Order for future visit, Dizziness Problem List/Past Medical History Ongoing ADHD Anxiety Heart palpitations Hypertension Obesity Pre-diabetes Historical No qualifying data Procedure/Surgical History ???Umbilical Herniorrhaphy with Prolene Mesh (11/15/2010)???Laparoscopic ablation of pelvic endometriosis (01/18/2000) Medications What How Much When Instructions Unchanged multivitamin (multivitamin adult, oral tablet) 1 tab Oral (given by mouth) Every day Unchanged NIFEdipine (NIFEdipine (Eqv-Adalat CC) 30 mg oral tablet, extended release) 1 tab Oral (given by mouth) Every day Allergies sulfamethoxazole-trimethoprim??(Urticaria) LATEX Social History Alcohol Past Electronic Cigarette/Vaping Electronic Cigarette Use: Never. Employment/School Employed Home/Environment Lives with Alone. Nutrition/Health Diet: Regular. Caffeine intake amount: Minamal. Substance Use Never Tobacco Never tobacco user Tobacco Use:. Family History Anxiety: Daughter. Depressive disorder: Daughter. Hypertensive disorder: Father. OCD - Obsessive-compulsive disorder: Daughter. Oppositional defiant disorder: Daughter. Osteoporosis: Mother. Postmenopausal state: Mother. Immunizations Vaccine Date Status influenza, unspecified formulation - Not Given Comments : Patient Refuses Patient declined - 04/29/2020 SARS-CoV-2 (COVID-19) mRNA-1273 vaccine 10/04/2020 Recorded SARS-CoV-2 (COVID-19) mRNA-1273 vaccine 09/09/2020 Recorded tetanus/diphth/pertuss (Tdap) adult/adol 11/20/2018 Recorded tetanus/diphth/pertuss (Tdap) adult/adol 07/08/2008 Recorded tetanus-diphth toxoids (Td) adult/adol 05/20/1998 Recorded Electronically Signed on 03/14/23 01:18 PM Carmela Overton MOTOR VEHICLE TECHNICIAN Patient Care team information Care Team Personnel Name: Fito Harris NP Position: Physician Member Role: Primary Care Physician Address: Address: [address] [address]- Care Team Related Persons Name: TIMOTHY ZEPEDA Name: LEXIS GALEANA Name: ROBERTO CARLOS GALEANA Address: Home
--- OUTSIDE RECORDS SUMMARY | 2023-04-29 14:24 | XMS_ITS | Continuity of Care Document ---
Author Name Unknown Organization [facility] Address [address] [place] [address] Care Team Providers Care Cafeteria Monitor Name Role Phone Fito Harris Primary Care Physician Encounter [facility] Date(s): 04/08/23 - 04/08/[address] [address] Discharge Disposition: Home or Self Care Attending Physician: Carmela Overton NP Admitting Physician: Carmela Overton NP Referring Physician: Carmela Overton BILLING CLERK Allergies, Adverse Reactions, Alerts Substance Reaction Severity Status LATEX Unknown Active sulfamethoxazole-trimethoprim Urticaria Moderate Active Assessment and Plan Future Appointments Future Scheduled Tests Laboratory* Basic Metabolic Panel 11/19/22 * Lipid Panel 11/19/22 * Hemoglobin A1c 12/26/22 Radiology* MG Mammo Screening Bilateral w/ Leonard 03/26/23 Immunizations Given and Recorded Vaccine Date Status [...] # 90 tab, 1 Refill(s), [facility] Start Date: 02/12/23 Status: Ordered Problem List Condition Confirmation Course Effective Dates Status Health St [facility] Informant Anxiety Confirmed Active ADHD Confirmed Active Hypertension Confirmed Active Obesity Confirmed Active Heart palpitations Confirmed Active Pre-diabetes Confirmed Active Procedures Procedure Date Related Diagnosis Body Site Status Umbilical Herniorrhaphy with Prolene Mesh 11/14/10 Completed Laparoscopic ablation of pel kasie endometriosis 01/17/00 Completed Social History Social History Type Response Tobacco Never tobacco user T obacco Use:. Sex Female Patient Care team information Care Team Personnel Name: Fito Harris NP Position: Physician Member Role: Primary Care Physician Address: Address: [address] Care Team Related Persons Name: TIMOTHY ZEPEDA Name: LEXIS GALEANA Name: ROBERTO CARLOS GALEANA
--- OUTSIDE RECORDS SUMMARY | 2023-04-29 14:24 | XMS_ITS | Continuity of Care Document ---
Author Name Unknown Organization [facility] Address [address] [place] [address] Care Team Providers Care Emergency Service Worker Name Role Phone Fito Harris Primary Care Physician [facility] Date(s): 03/14/23 - 03/14/23 [facility] [address] [place] [address] Discharge Disposition: Home Allergies, Adverse Reactions, Alerts Substance Reaction Severity [...] Daily, # 90 tab, 1 Refill(s), [facility]acy[facility] Start Date: 02/12/23 Status: Ordered [...] information Care Team Personnel Name: Fito Harris TERRESTRIAL ECOLOGIST Position: Physician Member Role: Primary Care Physician Address: Address: [address] Care Team Related Persons Name: TIMOTHY ZEPEDA Name: LEXIS GALEANA Name: ROBERTO CARLOS GALEANA Address: Home
--- OUTSIDE RECORDS SUMMARY | 2023-04-29 14:24 | XMS_ITS | Continuity of Care Document ---
Author Name Unknown Organization [facility] Address [address] [place] [address] Care Team Providers Care Silver Chaser Name Role Phone HarrisUbaldomira Tafoya Primary Care Physician Encounter [facility] Date(s): 04/22/23 - 04/22/23 [facility] [address] [place] [address] Encounter Diagnosis Palpitations(Discharge Diagnosis) - 04/22/23 Dyspnea(Discharge Diagnosis) - 04/22/23 Discharge Disposition: Home or Self Care Attending Physician: Carmela Overton HYDRAULIC PLUMBER Allergies, Adverse Reactions, Alerts Substance Reaction Severity Status LATEX Unknown Active sulfamethoxazole-trimethoprim Urticaria Moderate Active Assessment and Plan Future Scheduled Tests Laboratory* Basic Metabolic Panel [...] # 90 tab, 1 Refill(s), [facility]acy: [facility] Start Date: 02/12/23 Status: Ordered [...] Pulse Rate [60-100 bpm] 86 bp m (04/22/23 10:56 AM) Blood Pressure [90-140/60-90 mmHg] 127/8 7mmHg (04/22/23 10:56 AM) Mean Arterial Pressure, Cuff [70-110 mmH g] 100 mmHg (04/22/23 10:56 AM) Weight 61.78 kg (04/22/23 10:56 AM) Weight Measured (lbs) 136.201 lb (04/22/23 10:56 AM) Weight Dosing 61.780 kg (04/22/23 10:56 AM) Height 162.56 cm (04/22/23 10:56 AM) Height/Length Measured (inches) 64 inch (04/22/23 10:56 AM) BSA Measured 1.67 m2 (04/22/23 10:56 AM) Body Mass Index 23.38 kg/m2 (04/22/23 10:56 AM) Social History Social History Type Response Tobacco Never tobacco user T obacco Use:. Sex Female Physician Outpatient Note * Carmela Overton HYDRAULIC PLUMBER: PERFORM Event Display: Office Clinic Note Physician Authored Date: [id number] LIZY GALEANA :1980 Age:42 years Sex:Female Visit Date:04/22/2023 Primary Care Physician: Fito Harris NP History of Present Illness Cardiac Problems: 1.Palpitations 2.Hypertension-nifedipine 30mg 3.Obesity 4.Prediabetes ?? This is a 42-year-old female that I last saw in the office on 03/14/2023??for tachycardia, palpitations and hypertension.?? She had noted that her heart rate did spike??past 100 bpm??lasting about10 minutes??while she was at physical therapy and it was recommended by her PT??provider to have a stress test done.?? Her Holter monitor??was reassuring.?? She??did have a history of??gestational diabetes and preeclampsia while ??and was started on nifedipine.?? She reported a heaviness and tightness in her chest??once a month which coincides with fluttering, her heart rate will jump??to180 to 190 bpm.?? She was reporting??lightheadedness more frequently in the shower for the past??week prior to our up??appointment.?? She broke her leg when she was 36 weeks ??and she would like to get the pins and rods removed??but required a surgical evaluation by cardiology due??to her reported palpitations.?? She states that she does get short of breath with going up 2 flights of stairs currently but did not know if that was??cardiac related or from??deconditioning.?? She had a??treadmill stress??test ordered for April 08, 2023??and I also ordered an echocardiogram to look at the structure and function of her heart.?? We went over her Zio results??to help her understand PACs/PVCs, we could always??discontinue her nifedipine and switch her to Cardizem??but she said they happen so infrequently??that she is just going to manage his symptoms at this time.?? Stress test and echocardiogram showed:Ambulated for 9 minutes, achieved 100% of max potential heart rate, 10.10 METS, [address] changes.?? ETT positive for ischemia with [address] depression at peak exercise, good exercise tolerance with no chest pain, may be false positive and EF of 60 to 65% with normal wallmotion, no significant valve disease, PAP normal at 23 mmHg.?? Reassuring echocardiogram. ?? She states she has been??fine lately, she denies chest pain,??palpitations, syncope, dyspnea, orthopnea, PND, and??edema.?? She states she recently stopped the nifedipine??for her blood pressure at home and has been taking her blood pressure daily. ??She is averaging??around 110 systolic??daily.?? She is still attending physical therapy at least 3 times a week??minimum.?? She is doing??treadmill work??and calisthenics??as well as exercise with PT??and denies chest pains during this time??butdoes have mild shortness of breath??with strenuous activity??such as box jumping.?? She does this exercise and for greater than 30 minutes at a time when she does this. Review of Systems A complete review of systems is negative other than as noted in the history of present illness. Physical Exam Vitals & Measurements HR:??86??(Peripheral)?? BP:??127/87?? SpO2:??99%?? HT:??162.56??cm?? WT:??61.78??kg?? BMI:??23.38?? BSA:??1.67?? HEENT: Normocephalic, atraumatic Respirations: Clear to auscultation bilaterally with no wheezes rubs or rhonchi Cardiac: Regular rate and rhythm, normal S1, S2, no murmurs gallops or rubs Abdomen: Nontender nondistended normal active bowel sounds Extremities: 2+ dorsalis pedis pulses bilaterally with no significant edema Medical Decision Making Data Review: 12/29/2022.?? ER at [facility].?? Heart palpitations and chest pain occurring for [...] anemia normal.?? 03/14/2023: EKG:??Sinus rhythm 82 bpm,??short WI interval at 89 ms, axes and intervals within normal limits. 04/08/2023: Treadmill stress test:Ambulated for 9 minutes, achieved 100% of max potential heart rate, 10.10 METS, [address] changes.?? ETT positive for ischemia with [address] depression at peak exercise, good exercise tolerance with no chest pain, may be false positive. 04/08/2023: Echocardiogram:EF of 60 to 65% with normal wall motion, no significant valve disease, PAP normal at 23 mmHg.?? Reassuring echocardiogram. 04/22/2023: EKG:EF 45 to 50%, primarily affecting the anterior wall and adjacent segments.?? Sinus rhythm at 93 bpm, axes and intervals within normal limits, WI interval 75 ms. ?? 42-year-old female with tachycardia and GALLEGOS ?? Dyspnea on exertion:??She has mild dyspnea on exertion with??intense??exercise at physical therapy such as box jumping, but is asymptomatic??otherwise.?? She had a reassuring echocardiogram??but did have a positive treadmill stress test that showed [address] changes??at peak exercise. ??We discussed this test today??at length. ??There is a possibility that this is a??false??positive??given that shehad??good exercise tolerance with no chest pain??as well as??ambulated for 9 minutes??and [id number]% max potential heart rate.?? We discussed that we would like to get??more??information, depending on timing,??a stress with imaging would be useful here, also a coronary calcium score??as well.??She does not have to do a coronary calcium score??if??the stress echocardiogram??is??within normal limits.?? She agrees to a, she knows to call in with any questions or concerns in the meantime??at [facility]. ??We will set that up??today. ? Palpitations:??She is currently asymptomatic at this time and we have gone over her??heart monitor??in the previous visit.?? No change to this at this time. ?? Preoperative: At this time??we are ordering a stress echocardiogram??as well as coronary calciumscore at [facility]??to determine if??the positive??treadmill stress test is a false positive given her good exercise tolerance and ambulating for 9 minutes achieving 100% of her max potential heart rate.?? Her echocardiogram??was very reassuring.?? At this time??we will have to push back her surgery??and Lizy is aware of this.?? Will see her again in 3 months to discuss??her stress echocardiogram, and a coronary artery calcium score.?? She knows to call in with any questions or concerns in the meantime. ??It was a pleasure to see Lizy. Clinic Assessment/Plan Dyspnea??R06.00 Actions: FUTURE - Echocardiogram Stress, 04/22/23, Order for future visit, Dyspnea ORDERED - Outside Rad Request, 04/22/23 11:41:00 EST, Stop date 04/22/23 11:41:00 EST, [facility] for Coronary calcium score LISSY., Dyspnea ?? Palpitations??R00.2 Actions: COMPLETED - 16841 Office/Outpatient Visit - Established Patient, Level 3 (20-29 min)., 04/22/23 10:53:00 EST, Palpitations FUTURE - Follow-Up Appointment Request [facility], *Est. 07/22/23 +/- 21 days, Future Order, In Approximately, [facility] COMPLETED - Follow-Up Appointment Request [facility], 04/22/23 11:20:00 EST, In [facility], [facility], 04/22/23 11:20:00 EST ?? Problem List/Past Medical History Ongoing ADHD Anxiety [...] (Td) adult/adol 05/20/1998 Recorded Electronically Signed on 04/22/23 11:43 AM Carmela Overton HYDRAULIC PLUMBER Patient Care team information Care Team Personnel Name: Fito Harris NP Position: Physician Member Role: Primary Care Physician Address: Address: [place] [address]- Care Team Related Persons Name: TIMOTHY ZEPEDA Name: LEXIS GALEANA Name: ROBERTO CARLOS GALEANA Address: Home
--- OUTSIDE RECORDS SUMMARY | 2023-04-29 14:24 | XMS_ITS | Continuity of Care Document ---
Author Name Unknown Organization [facility] Address [address] [place] [address] Care Team Providers Care Gambreler Helper Name Role Phone Fito Harris Primary Care Physician [id number] Date(s): 03/26/23 - 03/26/[address] [address] Discharge Disposition: Home Allergies, Adverse Reactions, Alerts [...] # 90 tab, 1 Refill(s), [facility]acy: [facility] Start Date: 02/12/23 Status: Ordered [...] information Care Team Personnel Name: Fito Harris CHANNEL OPENER Position: Physician Member Role: Primary Care Physician Address: Address: [address] Care Team Related Persons Name: TIMOTHY ZEPEDA Name: LEXIS GALEANA Name: ROBERTO CARLOS GALEANA Address: Home
--- OUTSIDE RECORDS SUMMARY | 2023-04-29 14:24 | XMS_ITS | Continuity of Care Document ---
Author Name Unknown Address [address] [place] [address] Phone [facility] Address [address] [place] [address] Phone Care Team Providers Care Material Hauler Name Role Phone KENTRELL Harris Primary Care Provider UNKNOWN Attending Provider Unavailable Radha Mazariegos Attending Provider Unavailable TONE Kimbrough Attending Provider Care Teams Patient Care Team Team Status: Active Member Role Status Dates Fito Harris APRN Primary Care Provider Active Patient Care Team Team Status: Active Member Role Status Dates Fito Harris APRN Primary Care Provider Active Start: March 28, 2023 UNKNOWN Attending Provider Active Start: No [id number] Patient Care Team Team Status: Active Member Role Status Dates Fito Harris APRN Primary Care Provider Active Start: March 29, 2023 Radha Mazariegos Attending Provider Active Start: March 29, 2023 Patient Care Team Team Status: Inactive Member Role Status Dates Fito Harris APRN Primary Care Provide r, Referring Provider Active Start: April 17, 2023 End: April 17, 2023 TONE Laguerre Attending Provider Active Start: April 17, 2023 End: April 17, 2023 Chief Complaint and Reason for Visit Chief Complaint Amb Documentation skin check Allergies, Adverse Reactions, Alerts Allergen Type Severity Reaction Last Updated Verified Status latex Allergy Unknown Unknown April 17, 2023 10:27am Yes Active sulfamethoxazole Allergy Unknown Urticaria April 17, 2023 10:27am Yes Active trimethoprim Allergy Unknown Urticaria March 10:27am Yes Active Social History Smoking Status Status Start Date End Date Date of Observa tion Unknown if ever smoked Novem 2022 12:57pm Additional Data Assigned Sex Female Family History Relationship Condition Age at Onset Recorded Date/T debbie mother Osteoporosis Unknown child Depression Unknown Anxiety Unknown Obsessive-compulsive disorder Unknown Oppositional defiant disorder Unknown father Hypertension Unknown Problems Active Problems Medical Problem Onset Date Status Family history of malignant neoplasm of other or marcelino or systems Active Folliculitis Active Neoplasm of uncertain behavior A ctive Benign nevus Active Inactive/Resolved Problems Medical Problem Onset Date Status Leg pain Resolved SOB (shortness of breath) Resolv ed Heart palpitations Resolved Well-controlled hypertension Res olved Anxiety Resolved History of endometrial ablation Resolved Umbilical hernia Resolved Hyperkeratosis Resolved Tachycardia Resolved Prediabetes Resolved Acid reflux Resolved Obesity Resolved Ingrown hair Resolved Medications Medication Status Dose Units Route Directions Qty Days Start Elmer e End Date Instructions Multivitamin Active 1 TAB PO daily Elizabet phillips 2022 12:00am Immunizations Immunization Event Date Not Given Reason Dose Number Sourcing Coordinator Lot Number Vaccine Information Statement (VIS) Detail Tdap (Boostrix, Adacel) November 20, 2018 *COVID-19 Vaccine *Unspecified Formulation October 04, 2020 *COVID-19 Vaccine *Unspecified Formulation September 09, 2020 Vital Signs Vital Reading Result Reference Range Collection Date/Time Height 64 [in_i] April 17, 2023 10:27am Weight 135.00 [lb_av] March 10:27am Body Temperature 98.9 [degF] 97.6-99.6 April 172022 10:27am Heart Rate 72 /min 60-100 April 17, 2023 10:27am Respiratory rate 16 /min 12-18 April 172022 10:27am Oxygen saturation by Pulse oximetry 99 % 92-100 April 17, 2023 10:27am BP Systolic 120 mm[Hg] 90-130 April 17, 2023 10:27am BP Diastolic 73 mm[Hg] 70-80 April 17, 2023 10:27am BMI (Body Mass Index) 23.1 kg/m2 [facility] 2022 10:27am Insurance Providers Guarantor Connor DELA CRUZ Address [address] [place] [id number] Contact Info. Home Phone: Payer Policy Id Coverage Id Subscriber's Name Subscriber Id Effective Date Expiration Date [facility] [id number] Connor DELA CRUZ [id number] [facility] [id number] Connor DELA CRUZ [id number] Encounters Encounter Location(s) Arrival/Admit Date Discharge/Depart Date Provider(s) Non-patient / Non-visit [facility] [place] March 28, 2023 11:59pm Unknown Non-patient / Non-visit [facility] Nonvisit March 29, 2023 12:54pm Radha Mazariegos Departed Physician/Prov ider Office Visit [facility] [place] April 17, 2023 10:14am April 17, 2023 10:52am TONE Laguerre
--- OUTSIDE RECORDS SUMMARY | 2023-04-29 14:24 | XMS_ITS | Continuity of Care Document ---
Author Name Unknown Organization [facility] Address [address] [place] [address] Care Team Providers Care Pierogi Maker Name Role Phone Fito Harris Primary Care Physician [phone] Encounter [facility] Date(s): 04/22/23 - 04/22/[address] [address] Discharge Disposition: Home Allergies, Adverse Reactions, Alerts [...] Member Role: Primary Care Physician Address: Address: [address] Care Team Related Persons Name: TIMOTHY ZEPDEA Name: LEXIS GALEANA Name: ROBERTO CARLOS GALEANA Address: Home
--- OUTSIDE RECORDS SUMMARY | 2023-04-29 14:24 | XMS_ITS | Continuity of Care Document ---
Author Name Unknown Organization [facility] Address [address] [place] [address] Care Team Providers Care Sexual Assault Nurse Name Role Phone Fito Harris Primary Care Physician Encounter [facility] Date(s): 04/08/23 - 04/08/[address] [address] Discharge Disposition: Home or Self Care Attending Physician: Fito Harris NP Admitting Physician: Fito Harris NP Referring Physician: Fito Harris COMMISSARY SUPERINTENDENT Allergies, Adverse Reactions, Alerts Substance Reaction Severity [...] tobacco user T obacco Use:. Sex Female Exercise stress test study * Chris Salguero T: PERFORM Percy Carmen MD: MODIFY Event Display: Stress ECG Authored Date: [id number] LISSETTCOLLEEN :1980 Age:42 years Sex:Female Visit Date:04/08/2023 Primary Care Physician: Fito Harris COMMISSARY SUPERINTENDENT Ordering Provider :?Fito Harris??N.P? ETT?Ron Protocol Indication:??Tachycardia, HTN MPHR:??178 85% MPHR:??151 ?Stage ??Speed ??Incline ??Heart rate ??Blood Pressure ??Comments ??1 ??2.7 km/hr ??10% ?144 142??/78 ?spo2 98 ??2 ??4.02 km/hr ??12% ?157 ??160/84 ?98 ??3 ??5.47 km/hr ??14% ?176 154??/88 ?99 ??4 ??6.76 km/hr ??16% ?176 ??/ ?5 ??8.05 km/hr ??18% ?/ ?6 ??8.85 km/hr ??20% ?/ ?7 ??9.65 km/hr ??22% ?/ ?8 ??10.46 km/hr ??24% ?/ ?Recovery ?/ ?2:00 ?/ ?4:00 ?/ ? Total Time:??9:01 Max Heart Rate:??179 % of MPHR achieved:??100 Functional Capacity: 10.10??Good?? METS 10.10 Peak BP:??160/84 Chest Pain: ??None? Reason Test Terminated:??100% Target HR, Leg pain ST Changes: ??2??mm Direction, leads:?? Arrhythmias:??NSR Heart rate and BP Response:??appropriate [place] Treadmill Score:?-1?MODERATE RISK, with predicted 5-year survival >90%.? Summary Impression:??ETT positive for??ischemia??with 2mm??horizontal ST depression at peak exercise.??Good exercise tolerance with no chest pain; may be false positive. Electronically Signed on 04/08/23 03:46 PM Chris Salguero Electronically Signed on 04/08/23 04:32 PM Percy Carmen MD Reviewed by: Chris Salguero Steven D MD Patient Care team information Care Team Personnel Name: Fito Harris NP Position: Physician Member Role: Primary Care Physician Address: Address: [address] [address]- [place] Care Team Related Persons Name: TIMOTHY ZEPEDA Name: LEXIS GALEANA Name: ROBERTO CARLOS GALEANA
== END 2023-04-29 14:23 | disposition home or self-care (01) ==
LOC: LBN 14:22
PROVIDERS: PCP Nurse Practitioner Family; Visit Provider Internal Medicine Gastroenterology
DX: R19.7 Diarrhea, unspecified (principal)
CPT/HCPCS: 87329; 83630; 87177

== ENCOUNTER 2023-05-19 08:02 | Emergency (ER) | payer BC, SELFPAY ==
[2023-05-19 08:06] VITALS: BP 127/70; PULSE 113; RESP 18; TEMP 37.5; O2SAT 99
--- OUTSIDE RECORDS SUMMARY | 2023-05-19 08:17 | XMS_ITS | Continuity of Care Document ---
Author Name Unknown Organization [facility] Address [address] [place] [address] Care Team Providers Care Medical Services Coordinator Name Role Phone Fito Harris Primary Care Physician [id number] Date(s): 05/09/23 - 05/09/[address] [address] Discharge Disposition: Home or Self Care Attending Physician: Carmela Overton NP Admitting Physician: Carmela Overton NP Referring Physician: Carmela Overton TACKING MACHINE OPERATOR Allergies, Adverse Reactions, Alerts Substance Reaction Severity [...] tobacco user T obacco Use:. Sex Female Cardiac stress echo study * Event Display: Echocardiogram Stress Authored Date: Exercise stress test study * Nancy Augustine RN: PERFORM Percy Carmen MD: MODIFY Event Display: Stress ECG Authored Date: [id number] COLLEEN GALEANA :1980 Age:42 years Sex:Female Visit Date:05/09/2023 Primary Care Physician: Fito Harris TACKING MACHINE OPERATOR Ordering Provider : ??Carmela Overton TACKING MACHINE OPERATOR? ETT?Ron Protocol Indication:??dyspnea MPHR:??178 85% MPHR:??151 ?Stage ??Speed ??Incline ??Heart rate ??Blood Pressure ??Comments ??1 ??2.7 km/hr ??10% ?134 136??/58 ?O2 SAT 98% ??2 ??4.02 km/hr ??12% ?151 ??142/64 ?98% ??3 ??5.47 km/hr ??14% ?176 130??/54 ?98% ??4 ??6.76 km/hr ??16% ?/ ?5 ??8.05 km/hr ??18% ?/ ?6 ??8.85 km/hr ??20% ?/ ?7 ??9.65 km/hr ??22% ?/ ?8 ??10.46 km/hr ??24% ?/ ?Recovery ?/ ?2:00 ?/ ?4:00 ?/ ? Total Time:??7:41 Max Heart Rate:??179 % of MPHR achieved:??100% METS:10:10 ?? Functional Capacity: ??Good?? Peak BP:??148/76 Chest Pain: ??Present, but not limiting? Reason Test Terminated:?? target heart rate achieved ST Changes: ??1??mm Direction, leads:?? Arrhythmias:??NSR Heart rate and BP Response:??Appropriate [place] Treadmill Score: ?? -2?MODERATE RISK, with predicted 5-year survival >90%.? Summary Impression:??Normal ETT with no evidence of ischemia, although chest pain was present. Goodexercise tolerance. Associated echocardiogram reassuring. Normal stress echo.?? Electronically Signed on 05/09/23 02:08 PM Nancy Augustine RN Electronically Signed on 05/09/23 02:39 PM Percy Carmen MD Reviewed by: Nancy Augustine RN Patient Care team information Care Team Personnel Name: Fito Harris TACKING MACHINE OPERATOR Position: Physician Member Role: Primary Care Physician Address: Address: [address] [address]- Care Team Related Persons Name: TIMOTHY ZEPEDA Name: LEXIS GALEANA Name: ROBERTO CARLOS GALEANA
--- NOTE | 2023-05-19 08:25 | ED.GENADUL_ITS ---
Discharge Plan Disposition Patient Disposition: Home Condition: Stable Discharge Details Clinical Impression: COVID, Sinusitis Primary Care Provider: Fito Harris ED Provider: Ajay Harp Home Meds and New Rx's Prescriptions: New amoxicillin-pot clavulanate 875-125 mg tablet 1 tab PO BID Qty: 20 0RF Continued escitalopram oxalate 10 mg tablet 10 mg PO DAILY PRN ParaGard T 380A 380 square mm intrauterine device 1 device intrauterine ONCE Rx Instructions: as a single dose acetaminophen 500 mg Tablet 1,000 mg PO Q6H PRN PRNQty: 0 0RF ibuprofen 600 mg Tablet 600 mg PO Q6H PRN PRNQty: 60 0RF Discharge Instructions Instructions: Sinusitis (ED) Additional Instructions: If not better in a week follow up with your primary care provider If you feel more ill, have difficulty breathing or persistent vomiting return to the emergency department Medical Decision Making 43 yo female who denies chronic medical problems comes in with cc of 2 days of sinus congestion and dry cough, states she tested for positive for covid. Denies fevers,chills, chest pain, dyspnea, abdominal pain. She is caox4 and appears well speaking in full sentences. She has clear rhinorrhea, normal tm's, normal posterior pharynx with midline uvula, no pain over the hyoid or restricted neck movements, and clear lungs. Discussed with pt this is likely due to having covid and antibiotics likely won't help. She states she gets sinusitis requiring antibiotics usually once a year. Discussed risks of having antibiotics when they are not needed and she still would like to proceed with oral antibiotics. Will start her on augmentin and advised to f/u with pcp, return precautions given Differential Diagnosis Differential Diagnosis: covid, flu, sinusitis HPI General Mode of arrival: ambulatory . Date/Time Provider Initiated Documentation: 05/19/23 08:18 . Limitations to Documentation: no limitations . Information obtained by: patient . History of Present Illness 43 year old F presents to the emergency department with the chief complaint of sinus pressure, described as moderate, Quality is described as aching, Patient reports no radiation. Patient started experiencing this day(s) (2) and it has been constant. No relieving factors improve symptom(s), No exacerbating factors reported . Patient notes cough; denies chest pain and fever/chills. Patient did receive the following treatments prior to arrival, none Related Data Home Medications Medication Instructions Recorded Confirmed acetaminophen 500 mg tablet 1,000 mg (2 x 500 mg) PO Q6H PRN 07/29/22 05/19/23 PRN #0 tabs ibuprofen 600 mg tablet 600 mg PO Q6H PRN PRN #60 tabs 07/29/22 05/19/23 copper 380 square mm intrauterine 1 device intrauterine ONCE 09/25/22 05/19/23 device (ParaGard T 380A) escitalopram oxalate 10 mg tablet 10 mg PO DAILY PRN 01/02/23 05/19/23 amoxicillin 875 mg-potassium 1 tab PO BID #20 tabs 05/19/23 clavulanate 125 mg tablet Previous Rx's Medication Instructions Recorded acetaminophen 500 mg tablet 1,000 mg (2 x 500 mg) PO Q6H PRN 07/29/22 PRN #0 tabs ibuprofen 600 mg tablet 600 mg PO Q6H PRN PRN #60 tabs 07/29/22 amoxicillin 875 mg-potassium 1 tab PO BID #20 tabs 05/19/23 clavulanate 125 mg tablet Allergies Allergy/AdvReac Type Severity Reaction Status Date / Time Sulfa (Sulfonamide Allergy Intermediate Itching Unverified 05/19/23 08:09 Antibiotics) General Stated Complaint: RespSymp CHE: 4 Review of Systems All systems reviewed & are unremarkable except as noted in HPI and below Constitutional Constitutional: Denies chills, Denies fever(s) and Denies weakness ENT Ears, Nose, Mouth, and Throat: Denies change in voice Cardiovascular Cardiovascular: Denies chest pain and Denies dyspnea Respiratory Respiratory: Denies dyspnea Gastrointestinal Gastrointestinal: Denies abdominal pain, Denies nausea and Denies vomiting Genitourinary Genitourinary: Denies dysuria Integumentary/Breasts Skin/Breast: Denies rash Neurologic Neurologic: Denies weakness PFSH All Active Problems (Updated 05/19/23 @ 08:29 by jAay Harp MD) Sinusitis (Acute) COVID (Acute) Hypertension (Chronic) Perineal pain (Acute) Anxiety (Chronic) SUSSY (stress urinary incontinence, female) (Acute) Swelling of left foot (Acute) Closed fracture of right tibia and fibula (Acute 07/12/22) Fracture of posterior malleolus of right tibia (Acute 07/12/22) care following vaginal delivery (Acute) Medical History Family history of thyroid disease in mother Gestational diabetes mellitus (GDM) affecting 3 hour test F96, 1 h 187, 2h 150, 3h 99 Pre-eclampsia Surgical History Repair of umbilical hernia 2011 [facility] S/P laparoscopy Family History Father Diabetes Hypertension Mother Thyroid disorder Osteoporosis Social History Smoking/Tobacco Use Status: Never Smoking risk assessment performed?: Yes Alcohol Intake: never Drug use: Never Substance use type: does not use 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 Date GA/Weeks # Preg Succ Route Wgt Sex Labor Lgth Anesth esia Location [facility] 01/12/05 39 No Yes vaginal 2948.35 g Female 6hr [place], [place] 07/25/22 38 No Yes vaginal 3390.008 g Male AOC Delivery Date: 01/12/05 Last Updated by: Ashlyn Blake CNM SROM X 12 hours then augmentation with delivery 6 hours later. Exam Const General: no acute distress Orientation: alert HENMT Head: normal to inspection Ears: external ears normal and TM's normal bilaterally General nose exam: external nose normal Mouth: oropharynx normal, moist mucous membranes and no drooling Eyes General: appearance normal, both eyes and all related structures Neck Neck: normal visual inspection Resp Effort & Inspection: normal respiratory effort and able to speak in complete sentences Auscultation: clear to auscultation bilaterally Cardio Jugular venous pressure: no JVD Rate: regular rate Heart Sounds: no murmurs GI Palpation: soft and nontender Skin General skin exam: no rashes or lesions noted Neuro General: patient alert and patient oriented x3 Extrem General: normal to inspection Psych Mental Status: mental status grossly normal Course Vital Signs Vital signs: Vital Signs Temperature 37.5 C 05/19/23 08:06 Pulse 113 H 05/19/23 08:06 Respiratory Rate 18 05/19/23 08:06 Blood Pressure 127/70 05/19/23 08:06 Pulse Oximetry 99 05/19/23 08:06 Temperature 37.5 C 05/19/23 08:06 Temperature Source Oral 05/19/23 08:06 Pulse 113 H 05/19/23 08:06 Respiratory Rate 18 05/19/23 08:06 Respiratory Effort Normal, Non-Labored 05/19/23 08:10 Respiratory Depth Normal 05/19/23 08:10 Blood Pressure 127/70 05/19/23 08:06 Blood Pressure Position Sitting 05/19/23 08:06 Pulse Oximetry 99 05/19/23 08:06 Oxygen Delivery Method Room Air 05/19/23 08:06 Oxygen Flow Rate 0 05/19/23 08:06 Pain Level 8 05/19/23 08:06
== END 2023-05-19 08:37 | disposition home or self-care (01) ==
PROVIDERS: Emergency Provider Emergency Medicine; PCP Nurse Practitioner Family
DX: U07.1 COVID-19 (principal); J01.90 Acute sinusitis, unspecified
CPT/HCPCS: 99283; 99284

== ENCOUNTER 2023-06-25 14:31 | Outpatient (CLI) | payer BC, SELFPAY ==
--- NOTE | 2023-06-25 13:00 | DI.RAD_ITS ---
Exam(s) XR TIB/FIB RT EXAM: XR TIB/FIB RT INDICATION: F/U FRACTURE. COMPARISON: CR XR TIB/FIB RT from 07/24/2022 CR XR TIB/FIB RT from 03/06/2023 TECHNIQUE: 2D digital imaging was performed. Two views. FINDINGS: An intramedullary sammy is again noted through the tibia. The proximal fibular fracture mid tibial fra ctures have healed with minimal residual deformity. The knee and ankle are unremarkable as visualize d. DATA REPOSITORY: RADIATION DOSE DELIVERED:
--- OUTSIDE RECORDS SUMMARY | 2023-06-25 14:33 | XMS_ITS | Continuity of Care Document ---
Author Name Unknown Address [address] [place] [address] Phone [facility] Practices Address [address] [place] [address] Phone Care Team Providers Care Shipping Receiving Manager Name Role Phone KENTRELL Harris Primary Care Provider TNOE Kimbrough Attending Provider [phone] Care Teams Patient Care Team Team Status: Active Member Role Status Dates Fito Harris APRN Primary Care Provider Active Visit Care Team Team Status: Inactive Member Role Status Dates Fito Harris APRN Primary Care Provide r, Referring Provider Active Start: June 17, 2023 End: June 17, 2023 TONE Laguerre Attending Provider Active Start: June 17, 2023 End: June 17, 2023 Visit Care Team Team Status: Active Member Role Status Dates Fito Harris APRN Primary Care Provider Active Start: June 17, 2023 TONE Laguerre Attending Provider Active Start: June 17, 2023 Chief Complaint and Reason for Visit Chief Complaint Biopsy of spot on le g Reason for Visit Benign nevus Neoplasm of uncertain behavior Allergies, Adverse Reactions, Alerts Allergen Type Severity Reaction Last Updated Verified Status latex Allergy Unknown Unknown June 17, 2023 1:32pm Yes Active sulfamethoxazole Allergy Unknown Urticaria June 17, 2023 1: 32pm Yes Active trimethoprim Allergy Unknown Urticaria June 17, 2023 1:32pm Yes Active Social History Smoking Status Status [...] Event Date Not Given Reason Dose Number [employer] Lot Number Vaccine Information Statement (VIS) Detail Tdap (Boostrix, Adacel) November 20, 2018 *COVID-19 Vaccine *Unspecified Formulation October 04, 2020 *COVID-19 Vaccine *Unspecified Formulation September 09, 2020 Relevant Diagnostic Tests and/or Laboratory Data Diagnostic Imaging Reports Author Melissa Kimbrough [facility] Practices June 17, 2023 1:52pm Report Date/Time June 17, 2023 1 :43pm [address] Dermatology Visit Note 06/17/23 Patient Name: COLLEEN GALEANA Date of : 1980 Age: 43 F Record #: [id number] Acct: [id number] Loc: W.DERM.LPO Visit Provider: TONE Laguerre Assessment and Plan (1) 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 Informed consent was obtained and aftercare instructions were given to patient along with handout prior to departure. Additional treatment pending pathology. (2) Benign nevus: D22.9 - Melanocytic nevi, unspecified Discussed favored benign nature of the lesion and likelihood to return with ln2.Pt. encouraged to trial hydrocortisone prn for occasional pruritus; but if s/s become more consistent or if she would like to have it biopsied to rtc for biopsy of the lesion. Otherwise, no other treatment needed at this time. Orders 2 Pathology Specimen Today D48.9 - Neoplasm of uncertain behavior, unspecified HPI Patient presents for a biopsy of the right lower leg anterior, and follow up on folliculitis of b/l legs. At last visit on 04/16/2023, patient agreed to trial OTC benzoyl peroxide wash. Patient states that she has not been using the benzoyl peroxide wash on her b/l legs. Patient states that the folliculitis has been getting better. Intake Visit reasons: Biopsy of spot on leg Patient type: Established 2 No Data to Display Allergies/Adverse Reactions latex Allergy (Verified 06/17/23 13:32) Unknown sulfamethoxazole [From Sulfamethoxazole-Trimethoprim] Allergy (Verified 06/17/2412:32) Urticaria trimethoprim [From Sulfamethoxazole-Trimethoprim] Allergy (Verified 06/17/23 13:32) Urticaria Home Medications multivitamin 1 tab PO DAILY 03/29/23 [History Confirmed 06/17/23] Vital Signs 3 06/17/23 13:32 Height 5 ft 4 in Weight 134 lb Body Mass Index (BMI) 23.0 Temperature 97.6 F Temp Source forehead Pulse 87 Pulse Assessment regular Pulse Source automatic machine Blood Pressure 118/77 BP Position Sitting BP Location lt brachial Pulse Oximetry (%) 100 Oxygen Delivery Method room air Provider Reviewed Vital Signs? Yes BMI Screening normal limits Past Patient History Active Problems (Updated 04/17/23 @ 10:52 by TONE Laguerre) Folliculitis Benign nevus Neoplasm of uncertain behavior Family history of malignant neoplasm of other organs or systems (Acute) Medical History (Updated 04/17/23 @ 10:52 by TONE Laguerre) Hyperkeratosis Ingrown hair Acid reflux SOB (shortness of breath) Leg pain Tachycardia Heart palpitations Prediabetes Well-controlled hypertension Anxiety Obesity Surgical History (Updated 03/29/23 @ 12:54 by Radha Mazariegos) History of endometrial ablation 01/18/00 Umbilical hernia 11/15/10: umbilical herniorrhaphy with prolene mesh Family History (Updated 03/29/23 @ 12:58 by Radha Mazariegos) Mother Osteoporosis Child Depression Anxiety OCD (obsessive compulsive disorder) Oppositional defiant disorder Father Hypertension Social History (Updated 03/29/23 @ 12:57 by Radha Mazariegos) Tobacco Use: never Review of Systems Constitutional DENIES: chills, fever(s) and weight loss Cardiovascular DENIES: chest pain and palpitations Respiratory DENIES: cough Integumentary DENIES: pruritus and rash Physical Examination Constitutional A&Ox3, well developed, age appropriate. Skin NUB A.) Revillo papule on right lower leg anterior 4mm x 5mm R/O dermo vs BCC, SH color variegated papule left side - benign nevus Office Procedures Biopsy/Repair Shave/scoop/curette skin biopsy, single lesion: Yes Procedure Informed consent given: Yes Consent signed: Yes Details: NUB A.) Revillo papule on right lower leg anterior 4mm x 5mm R/O dermo vs BCC, SH Type of biopsy: shave Preparation: alcohol Anesthesia: 1% lidocaine with epinephrine Amount of lidocaine applied (mL): .5 Type: unknown Sent to pathology: Yes Hemostasis: aluminum chloride Origin: skin Depth: skin (epidermis or dermis) Wound closure: secondary intention Patient tolerated procedure: well Complications: No Estimated blood loss: scant Biopsy/Repair Data Reviewed Laboratory 2 No Data to Display Coding Level of Care Code OV, EST. TIME BASED, 10-19 min Total minutes spent (including non [id number] time) on DOS: 15 Diagnoses Neoplasm of uncertain behavior D48.9 Benign nevus D22.9 CPT Codes Charges - Shave/scoop/curette skin biopsy: Yes (38751) Recorded by: TONE Laguerre <Electronically signed by Melissa WAYNE> 06/17/23 1352 CC: Fito Harris APRN ~ Vital Signs Vital Reading Result Reference Range Collection Date/Time Height 64 [in_i] June 17, 2 024 1:32pm Weight 134.00 [lb_av] June 17, 2023 1:32pm Body Temperature 97.6 [degF] 97.6-99.6 May 1:32pm Heart Rate 87 /min 60-100 June 17 024 1:32pm Oxygen saturation by Pulse oximetry 100 % 92-100 June 17, 2023 1 :32pm BP Systolic 118 mm[Hg] 90-130 June 17 024 1:32pm BP Diastolic 77 mm[Hg] 70-80 June 17 024 1:32pm BMI (Body Mass Index) 23.0 kg/m2 Ifeanyi meyers 2023 1:32pm Insurance Providers Guarantor Connor DELA CRUZ Address [address] [place] [address] Contact Info. Home Phone: Payer Policy Id Coverage Id Subscriber's Name Subscriber Id Effective Date Expiration Date [facility] [id number] Connor DELA CRUZ [id number] [facility] [id number] Connor DELA CRUZ [id number] Encounters Encounter Location(s) Arrival/Admit Date Discharge/Depart Date Provider(s) Departed Physician/Provi radha Office Visit [facility] Dermatology [place] June 17, 2023 1:19pm June 17, 2023 1:55pm TONE Laguerre Registered Referred [facility] June 17, 2023 1:43pm TONE Laguerre Recent Diagnosis Onset Date Benign nevus Neoplasm of uncertain behavior Assessments Diagnosis Onset Date Resolution Status Benign nevus noneactive Neoplasm of uncertain behavior noneactive Plan of Treatment Author Melissa Kimbrough [facility] Authored June 17, 2023 1 :52pm Biopsies completed today. In formed consent was obtained and aftercare instructions were given to patient along with handout prior to departure. Additional treatment pending pathology. Discussed favored benign nature of the lesion and likelihood to return with ln2. Pt. encouraged to trial hydrocortisone prn for occasional pruritus; but if s/s become more consistent or if she would like to have it biopsied to rtc for biopsy of the lesion. Otherwise, no other treatment needed at this time. Future Tests Future scheduled test information is unavailable Pending Tests Test Name Ordered Date Scheduled Date N/A June 17, 2023 1:43pm Future Visits Future appointment information is unavailable Referrals to Other Providers Referral information is unavailable Future Procedures Procedure Name Ordered Date Scheduled Date Pathology Specimen June 17, 2023 1:43pm Geoff jaime 2023 1:43pm Future Medications Future medication information is unavailable Patient Instructions Patient instructions are unavailable
--- OUTSIDE RECORDS SUMMARY | 2023-06-25 14:33 | XMS_ITS | Continuity of Care Document ---
Author Name Unknown Address [address] [place] [address] Phone [facility] Address [address] [place] [address] Phone Care Team Providers Care Associate Chemist Name Role Phone KENTRELL Harris Primary Care Provider TONE Kimbrough Attending Provider [phone] Care Teams Patient Care Team Team Status: [...] 17, 2023 Visit Care Team Team Status: Inactive Member Role Status Dates Fito Harris APRN Primary Care Provider Active Start: June 17, 2023 End: June 17, 2023 TONE Laguerre Attending Provider Active Start: June 17, 2023 End: June 17, 2023 Chief Complaint and Reason [...] Resolved Hyperkeratosis Resolved Tachycardia Resolved Prediabetes Resolved History of biopsy Resolved Acid reflux Resolved Obesity Resolved Ingrown hair Resolved Medications Medication Status Dose Units Route Directions Qty Days Start Elmer e End Date Instructions Multivitamin Active 1 TAB PO daily Elizabet phillips 2022 12:00am Immunizations Immunization Event Date Not Given Reason Dose Number [employer] Lot Number Vaccine Information Statement (VIS) Detail Tdap (Boostrix, Adacel) November 20, 2018 *COVID-19 Vaccine *Unspecified Formulation October 04, 2020 *COVID-19 Vaccine *Unspecified Formulation September 09, 2020 Vital Signs Vital Reading Result Reference Range Collection Date/Time Height 64 [in_i] June 17 1:32pm Weight 134.00 [lb_av] June 17, 2023 1:32pm Body Temperature 97.6 [degF] 97.6-99.6 May 1:32pm Heart Rate 87 /min 60-100 June 17 1:32pm Oxygen saturation by Pulse oximetry 100 % 92-100 June 17, 2023 1 :32pm BP Systolic 118 mm[Hg] 90-130 June 17 1:32pm BP Diastolic 77 mm[Hg] 70-80 June 17 1:32pm BMI (Body Mass Index) 23.0 kg/m2 Mayua y 2023 1:32pm Insurance Providers Guarantor Connor DELA CRUZ Address [address] [facility] [address] Contact Info. Home Phone: Payer Policy Id Coverage Id Subscriber's Name Subscriber Id Effective Date Expiration Date [facility] [id number] Connor DELA CRUZ [id number] [place] [facility] [facility] [id number] Connor DELA CRUZ [id number] Encounters Encounter Location(s) Arrival/Admit Date Discharge/Depart Date Provider(s) Departed Physician/Prov ider Office Visit [facility] Practices-[facility] Dermatology [place] June 17, 2023 1:19pm June 17, 2023 1:55pm TONE Laguerre Departed Referred [facility] June 17, 2023 1:43pm June 17, 2023 1:44pm TONE Laguerre Recent Diagnosis Onset Date Benign nevus Neoplasm of uncertain behavior Assessments Diagnosis Onset Date Resolution Status Benign nevus noneactive Neoplasm of uncertain behavior noneactive Plan of Treatment Author Melissa Kimbrough [facility] Authored June 17, 2023 1 :52pm Biopsies [...] Date Scheduled Date N/A June 17, 2023 10:45am Future Visits Future appointment information is unavailable Referrals to Other Providers Referral information is unavailable Future Procedures Procedure Name Ordered Date Scheduled Date Pathology Specimen June 17, 2023 1:43pm Geoff jaime 2023 10:45am Future Medications Future medication information is unavailable Patient Instructions Patient instructions are unavailable
--- OUTSIDE RECORDS SUMMARY | 2023-06-25 14:34 | XMS_ITS | Continuity of Care Document ---
Author Name Unknown Organization [facility] Address [address] [address] Care Team Providers Care Research Epidemiologist Name Role Phone HarrisUbaldomira Tafoya Primary Care Physician Encounter [facility] Date(s): 06/06/23 - 06/06/23 [facility] [address] [place] [address] Encounter Diagnosis Hypertension(Discharge Diagnosis) - 06/05/23 Palpitations(Discharge Diagnosis) - 06/06/23 Discharge Disposition: Home or Self Care Attending Physician: Carmela Overton [employer] [facility]AN Allergies, Adverse Reactions, Alerts Substance Reaction Severity [...] # 90 tab, 1 Refill(s), Pharmacy: [facility] Start Date: 02/12/23 Status: Ordered [...] Range]: 1 Peripheral Pulse Rate [60-100 bpm] 80 bp m (06/06/23 11:14 AM) Blood Pressure [90-140/60-90 mmHg] 115/8 4mmHg (06/06/23 11:14 AM) Mean Arterial Pressure, Cuff [70-110 mmH g] 94 mmHg (06/06/23 11:14 AM) Weight 60.78 kg (06/06/23 11:14 AM) Weight Measured (lbs) 133.997 lb (06/06/23 11:14 AM) Weight Dosing 60.780 kg (06/06/23 11:14 AM) Height 162.56 cm (06/06/23 11:14 AM) Height/Length Measured (inches) 64 inch (06/06/23 11:14 AM) BSA Measured 1.66 m2 (06/06/23 11:14 AM) Body Mass Index 23 kg/m2 (06/06/23 11:14 AM) Social History Social History Type Response Tobacco Never tobacco user T obacco Use:. Sex Female Physician Outpatient Note * Carmela Overton [employer] [facility]AN: PERFORM Event Display: Office Clinic Note Physician Authored Date: [id number] LIZY GALEANA :1980 Age:43 years Sex:Female Visit Date:06/06/2023 Primary Care Physician: Fito Harris NP History of Present Illness Cardiac Problems: 1.Palpitations 2.Hypertension-nifedipine 30mg 3.Obesity 4.Prediabetes ?? This is a 43-year-old female that I last saw in the office on April 22, 2023??for dyspnea on exertion, tachycardia,??palpitations, hypertension, and preoperative visit.?? She originally noted that her heart rate spiked up to 100 bpm for about 10 minutes while at physical therapy??and was recommended by her PT to have a stress test done.?? She had a reassuring Holter monitor.?? She reported that she does get short of breath going up 2 flights of stairs??at her last appointment.?? Her Zio??was reassuring??with rare PACs/PVCs,??and she said that??palpitations happen so infrequently that shedid not want to go??start Cardizem.?? She ambulated for 9 minutes achieving 100% of her max potential heart rate??with 2 mm horizontal??ST??depression changes positive for ischemia??at peak exercise??with good exercise tolerance and no chest pain.?? Her echo showed EF of 60 to 65% with normal wall motion, no significant valve disease??and was reassuring.?? We wanted to make sure??that the stress test??was not a false positive??so we ordered a stress echocardiogram??as well as a coronary calciumscore at [facility] to determine??this.?? She was asymptomatic??with her palpitations??with mild dyspnea on exertion with intense exercise at physical therapy.?? She is here today to follow-up. Stress echocardiogram showed Reassuring stress test, blood flow to the heart under stress seems to be normal.?? Normal augmentation of overall left ventricular contractility, as well as segmental contractility, peak exercise, associated EKG reassuring, normal stress echo.?? Ambulated 7 minutes and 41 seconds, achieved 100% of max potential heart rate, normal ETT with no evidence of ischemia although chest pain was present, good exercise tolerance. ??She had her coronary calcium score done at [facility] 05/02/2023 which showed a coronary calcium score of 0. ?? She states that she has been??happy lately, she had gone on vacation to [place] to see her family??but when she got back??she came down with COVID??and has been dealing with her sick?? as well.?? She states that she is feeling better??now??and feels healthier. ??She denies any chest pain, palpitations, syncope, orthopnea, PND, and edema. ??She stated that she did have some shortness of breath??after having COVID??but this is improved.?? She denies any of the palpitations that she has??reporting??previously, we had discussed these??as rare PACs and PVCs??and she still did not see the purpose of starting??Cardizem. ?? She is not doing much for exercise currently, she states he is scared of breaking her leg that she has pins in if she walks outside, but she is walking her dogs couple times a day for them to urinate.?? She will occasionally go to physical therapy and do the bike/rowing/walking machine but she has not been in a while.?? She states that she does have some shortness of breath with this activity butno chest pain. ?? She was taking her blood pressure at home routinely, but has not done this in a couple of weeks.??She was on average getting??averages of??1 teens??for the systolic. Review of Systems A complete review of systems is negative other than as noted in the history of present illness. Physical Exam Vitals & Measurements HR:??80??(Peripheral)?? BP:??115/84?? SpO2:??99%?? HT:??162.56??cm?? WT:??60.78??kg?? BMI:??23?? BSA:??1.66?? HEENT: Normocephalic, atraumatic Respirations: Clear to auscultation bilaterally with no wheezes rubs or rhonchi Cardiac: Regular rate and rhythm, normal S1, S2, no murmurs gallops or rubs Abdomen: Nontender nondistended normal active bowel sounds Extremities: 2+ dorsalis pedis pulses bilaterally with no significant edema Medical Decision Making Data Review: 12/29/2022.?? ER at [facility].?? Heart palpitations and chest pain occurring for months but now associated with dizziness.?? ECG with sinus tachycardia at 102 bpm axes and overall is within normal limits, with slight ST elevation of less than 1 [...] anemia normal.?? 03/14/2023: EKG:??Sinus rhythm 82 bpm,??short IA interval at 89 ms, axes and intervals [...] bpm, axes and intervals within normal limits, IA interval 75 ms. 05/02/2023 [facility].?? CT for coronary calcium score, coronary calcium score of 0. 05/09/2023.?? Stress echocardiogram.?? Reassuring stress test, blood flow to the heart under stressseems to be normal.?? Normal augmentation of overall left ventricular contractility, as well as segmental contractility, peak exercise, associated EKG reassuring, normal stress echo.?? Ambulated 7 minutes and 41 seconds, achieved 100% of max potential heart rate, normal ETT with no evidence of ischemia although chest pain was present, good exercise tolerance. 06/06/2023: EKG:Sinus rhythm at 79 bpm, IA interval of 81 ms ?? 42-year-old female with tachycardia and GALLEGOS ?? Dyspnea:??She reports that her breathing is typically pretty good, if she does??exercise such as??physical therapy and she will get mild dyspnea.?? She had a??reassuring echocardiogram in March2023??and a reassuring stress echocardiogram, after a positive??treadmill stress test,??which shows??normal blood flow under stress and normal augmentation??of overall left ventricular contractility and it was a reassuring??stress echo with no evidence of ischemia.?? She also??had??a coronary calcium score done at [facility] which was 0. ??We discussed both of these tests today,??and I emphasized that these were reassuring tests??and that her risk??of a coronary event??was low.?? At this time there is no cardiac??contraindication??to surgery.?? I did encourage her to increase her exercise??to 30 minutes of uninterrupted exercise a day??when she has??the pins in her??leg removed and start to??exercise more. ? Palpitations:??She is asymptomatic at this time and reports not having palpitations.?? She still??feels that she does not need Cardizem at this time to help control the PVCs, we will??monitor this atthis time. ??No changes at this time. ? Preoperative: Stress echocardiogram and coronary calcium score were??reassuring. She has a normal cardiac work up and there is no contraindication for surgery. The risk is reasonable for surgery based upon the work up.?? We will send our note to Dr. Toth in endoscopy in [facility], as well as Dr. Holloway in [place]??for??her upcoming surgery. ?? Overall she is doing well??and has had a reassuring tests.?? I felt comfortable to see her in??2years to check in on how she is doing. ??Lizy would like to see how she feels??and will call in with any??questions or concerns.?? I did emphasize??to be seen in the emergency room for any chest pain or worsening symptoms??and to call in with any questions or concerns. ??It was a pleasure to seeLizy. Clinic Assessment/Plan Hypertension??I10 ?? Palpitations??R00.2 Actions: COMPLETED - 87876 Office/Outpatient Visit - Established Patient, Level 3 (20-29 min)., 06/06/23 10:53:00 EST, Palpitations COMPLETED - Follow-Up Appointment Request [facility], 06/06/23 11:20:00 EST, In Approximately, [facility], 06/06/23 11:20:00 EST ?? Problem List/Past Medical History [...] (Td) adult/adol 05/20/1998 Recorded Electronically Signed on 06/06/23 11:47 AM Carmela Overton [employer] [facility]AN Patient Care team information Care Team Personnel Name: Fito Harris NP Position: Physician Member Role: Primary Care Physician Address: Address: [facility] Primary [address] Care Team Related Persons Name: TIMOTHY ZEPEDA Name: LEXIS GALEANA Name: ROBERTO CARLOS GALEANA
== END 2023-06-25 14:32 | disposition home or self-care (01) ==
LOC: DIORS 14:31
PROVIDERS: PCP Nurse Practitioner Family; Visit Provider Student in an Organized Health Care Education/Training Program
DX: S82.391D Other fracture of lower end of right tibia, subsequent encounter for closed fracture with routine healing; X58.XXXD Exposure to other specified factors, subsequent encounter
CPT/HCPCS: 73590

== ENCOUNTER 2023-07-18 08:50 | Day surgery (SDC) | payer BC, SELFPAY ==
[2023-07-18] VITALS (8 sets, daily range): BP systolic 93–126; BP diastolic 47–77; PULSE 70–89; RESP 12–18; TEMP 36.5–36.7; O2SAT 70–100; BMI 22.9
--- NOTE | 2023-07-18 07:13 | W.PM.DSUDISC ---
Date of service: 07/18/23 Time of Service: 14:00 Discharge Plan Disposition Patient Disposition: Home Condition: Stable Discharge Details Attending Provider: Tejas Muller Primary Care Provider: Fito Harris Home Meds and New Rx's Prescriptions: New aspirin 81 mg tablet,delayed release (DR/EC) 81 mg PO DAILY 7 Days Qty: 7 0RF Rx Instructions: Start tomorrow naproxen 250 mg tablet 250 - 500 mg PO BID PRN (Reason: Moderate pain) Qty: 40 0RF oxycodone 5 mg tablet 5 - 10 mg PO Q4H PRN (Reason: Moderate to severe pain) Qty: 7 0RF Continued escitalopram oxalate 10 mg tablet 10 mg PO DAILY PRN ParaGard T 380A 380 square mm intrauterine device 1 device intrauterine ONCE Rx Instructions: as a single dose quercetin 500 mg capsule 500 mg PO DAILY multivitamin Tablet 1 tab PO DAILY omega-3 fatty acids 1,250 mg capsule 2,500 mg PO DAILY Cosamin ASU (with AKBA) 500 mg-116.7 mg-133.3 mg capsule 3 cap PO DAILY calcium citrate 250 mg calcium tablet 250 mg PO DAILY cholecalciferol (vitamin D3) 125 mcg (5,000 unit) capsule 125 mcg PO DAILY Probiotic (B. coagulans) 10 billion cell capsule,delayed release(DR/EC) 10 cell PO DAILY ascorbate calcium (vitamin C) 500 mg tablet 500 mg PO DAILY acetaminophen 500 mg Tablet 1,000 mg PO Q6H PRN PRNQty: 0 0RF ibuprofen 600 mg Tablet 600 mg PO Q6H PRN PRNQty: 60 0RF Discharge Instructions Additional Instructions: Surgery: Right tibia removal of hardware (4 screws) Activity: Weightbearing as tolerated. Recommend ice and elevation to minimize swelling and discomfort. Encourage increasing knee foot and ankle range of motion. Increase activities over the next few weeks and start physical therapy when ready. Ankle pumps to increase circulation. Stop taking aspirin and NSAIDs if GI discomfort occurs. Prescriptions: Aspirin 81 mg take 1 daily to prevent a blood clot for 7 days, starting tomorrow morning Naproxen 250 mg take 1-2 every 12 hours with a meal as needed for moderate pain Oxycodone 5 mg take 1-2 every 4-6 hours as needed for severe pain You may use [id number] Tylenol (acetaminophen) as needed for mild pain. These pain medications may be taken all at once or in different combinations as needed. Also, recommend Colace (docusate) as a stool softener as surgery and pain medicine cause constipation. You may try [id number] diphenhydramine (Benadryl) 25-50 mg nightly as a sleep aid Dressings: Leave Band-Aids in place for 3-5 days. May then remove and leave open to air or cover incisions with Band-Aids. May shower after 5 days. Follow-up: 10-[address] Muller You may take off the leg compression stockings this evening at home. You may also leave them on a few days longer if you have a history of leg swelling or edema. Let us know right away if you develop any redness, drainage, fevers, chest pain, or trouble breathing. Do not drink alcohol or drive for at least 24 hours after anesthesia. Please call the office during business hours with any questions or concerns. Discharge Orders Discharge Orders: Discharge Order (Routine); Ordered 07/18/23 Ordered By: Lj Noel DS: Diagnosis Discharge Diagnosis (1) Painful orthopaedic hardware: Status: Acute
--- NOTE | 2023-07-18 07:38 | W.PM.OP ---
Date of service: 07/18/23 Time of Service: 12:00 Operative Note Operative Note DATE OF PROCEDURE: 07/18/23 PRE-OP DIAGNOSIS: Right tibia painful hardware POST-OP DIAGNOSIS: same PROCEDURE: Right tibia removal of deep hardware, CPT #66161: 4 static screws SURGEON: Tejas Muller TIRE BUILDER OPERATOR: None None ANESTHESIA TYPE: Local By Surgeon and General LMA/ETT Refer to Anesthesia Record ESTIMATED BLOOD LOSS: 5 COMPLICATIONS: None Patient was transported to: PACU Patient's condition: stable Indications: Please see complete medical record for details. Procedure Description: In the operating room, general anesthesia was induced. The patient was positioned supine on the operating room table. All bony prominences were well-padded. Preoperative antibiotics were administered. The right leg was prepped and draped in the usual sterile fashion. The correct patient, procedure, and side of the procedure were all verified prior to incision. The 4 screw head surgical sites were preinjected with 0.25% bupivacaine containing epinephrine. Fluoroscopic assistance was used to open each small incision and expose the screw heads. Each screw was then removed without difficulty and in entirety. Screw paths were abraded. Hemostasis was appropriate. Wounds were irrigated and then closed using 3-0 Monocryl buried interrupted. Skin glue applied over each followed by Mepilex Band-Aids proximally and distally. The patient awoke from anesthesia without complication and was transferred to the recovery room in a stable condition.
[2023-07-18] MEDS: Lactated Ringers 1,000 ML 30 ML IV (09:38)
[2023-07-18] MEDS: ceFAZolin 2 GM/50 ML BAG IVPB (12:07)
--- NOTE | 2023-07-18 12:24 | W.ANESPRE ---
General Info Date of Service Date Performed: 07/18/23 Height: 5 ft 4 in Weight: 60.6 kg Body Mass Index (BMI): 22.9 Surgical Procedure: Operation Date: 07/18/23 11:25 Proposed Procedure Side Surgeon p Hardware Removal Rt Leg Right Tejas Muller MD Meds Allergies and Home Medications Allergies Allergy/AdvReac Type Severity Reaction Status Date / Time Sulfa (Sulfonamide Allergy Intermediate Itching Verified 07/18/23 09:29 Antibiotics) Home Medication Medication Instructions Recorded acetaminophen 500 mg tablet 1,000 mg (2 x 500 mg) PO Q6H PRN 07/29/22 PRN #0 tabs ibuprofen 600 mg tablet 600 mg PO Q6H PRN PRN #60 tabs 07/29/22 copper 380 square mm intrauterine 1 device intrauterine ONCE 09/25/22 device (ParaGard T 380A) escitalopram oxalate 10 mg tablet 10 mg PO DAILY PRN 01/02/23 Bacillus coagulans 10 billion cell 10 cell PO DAILY 07/02/23 capsule,delayed release (Probiotic (B. coagulans)) ascorbate calcium (vitamin C) 500 500 mg PO DAILY 07/02/23 mg tablet calcium citrate 250 mg PO DAILY 07/02/23 cholecalciferol (vitamin D3) 125 125 mcg PO DAILY 07/02/23 mcg (5,000 unit) capsule glucosamine 500 mg-chondroitin 3 cap PO DAILY 07/02/23 116.7 mg-herbal no.270 133.3 mg capsule (Cosamin ASU (with AKBA)) multivitamin 1 tab PO DAILY 07/02/23 omega-3 fatty acids 1,250 mg 2,500 mg PO DAILY 07/02/23 capsule quercetin 500 mg capsule 500 mg PO DAILY 07/02/23 aspirin 81 mg tablet,delayed 81 mg PO DAILY Prevent blood clot 07/18/23 release 7 days #7 tabs naproxen 250 mg tablet 250 - 500 mg (1 - 2 x 250 mg) PO 07/18/23 BID PRN Moderate pain #40 tabs oxycodone 5 mg tablet 5 - 10 mg (1 - 2 x 5 mg) PO Q4H 07/18/23 PRN Moderate to severe pain #7 tabs Current Visit Medications: Current Medications Generic Name Dose Route Start Last Admin Trade Name Freq PRN Reason Stop Dose Admin Ringer's Solution 1,000 mls @ 30 mls/hr 07/18/23 06:00 07/18/23 09:38 IV 08/16/23 23:59 30 mls/hr INFUSION BELL Administration Cefazolin Sodium/Dextrose 2 gm in 50 mls @ 100 mls/hr 07/18/23 06:00 Ancef Duplex IVPB 07/18/23 16:00 PREOP BELL IV Miscellaneous Supplies 1 each 07/18/23 06:00 Iv Access IV 08/16/23 23:59 DIRECTED BELL Oxycodone HCl 0 mg 07/18/23 07:12 Oxycodone 5 Mg Tab PO 08/17/23 07:11 Q3H PRN PRN Pain Sodium Chloride 0 ml 07/18/23 06:00 Normal Saline Flush 10 Ml Syr IV 08/16/23 23:59 PRN PRN Sodium Chloride 0 ml 07/18/23 06:00 Normal Saline 10 Ml Vial IJ 08/16/23 23:59 DIRECTED PRN Sterile Water 0 ml 07/18/23 06:00 Water,Injection,Sterile 10 Ml Vial IJ 08/16/23 23:59 DIRECTED PRN PFSH Active Problems Active Problems: Problem Status Onset Code COVID U07.1 Hypertension I10 Perineal pain R10.2 Anxiety SUSSY (stress urinary incontinence, female) N39.3 Swelling of left foot M79.89 Closed fracture of right tibia and fibula 07/12/22 S82.201A, S82.401A Fracture of posterior malleolus of right tibia 07/12/22 S82.391A care following vaginal delivery Z39.2 Medical History Medical History Family history of thyroid disease in mother Gestational diabetes mellitus (GDM) affecting 3 hour test F96, 1 h 187, 2h 150, 3h 99 Pre-eclampsia Surgical History Surgical History Repair of umbilical hernia 2011 [facility] S/P laparoscopy Tobacco Smoking/Tobacco Use Status: Never Alcohol Alcohol Intake: never Substance Use Substance use: Never Substance use type: does not use Prental History History 2 Para 3 Hx # Term Pregnancies 2 Multiple births 0 Hx # Pregnancies 0 Ectopic pregnancies 0 AB induced 0 Hx Number of Living Children 2 AB spontaneous 0 Past Pregnancies Del. Date GA/Weeks # Preg Succ Route Wgt Sex Labor Lgth Anesthesia Location Prov [facility] 01/12/05 39 No Yes vaginal 2948.35 g Female 6hr [facility] 07/25/22 38 No Yes vaginal 3390.008 g Male AOC Delivery Date: 01/12/05 Last Updated by: Ashlyn Blake CNM SROM X 12 hours then augmentation with delivery 6 hours later. Vital Signs and Lab Results Vital Signs Most Recent Vital Signs in EMR: Most Recent Vital Signs Temp Pulse Resp BP Pulse Ox 36.7 C 89 16 126/77 100 07/18/23 09:32 07/18/23 09:32 07/18/23 09:32 07/18/23 09:32 07/18/23 09:32 Point of Care Results Point of Care Results: POC- Test(urine) Negative 07/18/23 09:42 Lab Results Blood Type / Crossmatch: No Data to Display Complete Blood Count: No Data to Display Complete Metabolic Panel: No Data to Display Liver Function Panel: No Data to Display Coagulation Panel: No Data to Display Cardiac Panel: No Data to Display Arterial Blood Gas: No Data to Display Venous Blood Gas: No Data to Display Pancreas Panel: No Data to Display Thyroid Panel: No Data to Display Infectious Disease: No Data to Display Blood Cultures: No Data to Display Toxicology Panel: No Data to Display Panel: No Data to Display Anesthesia Assessment and Plan Anesthesia History Personal History: No History of Anesthesia Complications Family History: No Family History of Anesthesia Complications Exercise Tolerance Exercise Tolerance: Metabolic Equivalents>4 Cardiac & Pulmonary Exam Cardiac Exam: Normal S1/S2 Heart Sounds Pulmonary Exam: Clear Bilateral Breath Sounds Implantable Cardiac Device Does patient have a Pacemaker or an ICD?: No Airway Exam Known Difficult Airway: No Mallampati Class: 2 Mouth Opening: Normal (> 3cm) Thyromental Distance: Greater than 3 cm Neck Range of Motion: Full ROM Neck Circumference: Normal Teeth Condition: Normal Dentition ASA Classification ASA Score: ASA 2 Emergency Case?: No NPO Status NPO Status: NPO Clears >2 hours, Solids >8 hours Status Status: Not Relevant due to Medical History Anesthesia Plan Resuscitation Status: Full Code Anesthesia Technique: General Anesthesia Airway Planned: LMA Monitors Used: Standard Monitors
--- NOTE | 2023-07-18 12:50 | DI.RAD_ITS ---
Exam(s) XR TIB/FIB RT EXAM: XR TIB/FIB RT CLINICAL HISTORY: removal of hardware TECHNIQUE: 2D and realtime digital imaging was performed. CONTRAST MATERIAL: Refer to procedure report. COMPARISON: CR XR TIB/FIB RT from 06/25/2023 FINDINGS: Fluoroscopy was provided for Dr. Muller during the performance of a hardware removal. Please refer t o the procedure report for complete details. Ka,r=0.26 mGy IMPRESSION: RADIATION DOSE DELIVERED: 0.0 91.2 0
--- NOTE | 2023-07-18 14:13 | W.ANESPOSTOP ---
Postoperative Evaluation Date, Time and Location Date Performed: 07/18/23 Time Performed: 14:13 Patient Location: Day Surgery Unit Vital Signs Most Recent Imported Vital Signs: Most Recent Vital Signs Temp Pulse Resp BP Pulse Ox 36.5 C 77 16 120/75 100 07/18/23 13:38 07/18/23 13:38 07/18/23 13:38 07/18/23 13:38 07/18/23 13:38 Pain Score Most Recent Pain Score: Most Recent Pain Score Pain Level 2 07/18/23 13:38 Assessment Mental Status: Awake (Alert & Oriented to Patient Baseline) Airway and Respiratory Function: Patent airway with normal (patient baseline) respiratory exam Cardiovascular Function: Hemodynamically Stable Hydration Status: Adequately Hydrated Nausea & Vomiting: No Nausea or Vomiting Pain: Pt. Denies Any Pain Peripheral Nerve Block: Patient did not receive a nerve block
== END 2023-07-18 14:30 | disposition home or self-care (01) ==
LOC: SUR 08:51
PROVIDERS: PCP Nurse Practitioner Family; Visit Provider Student in an Organized Health Care Education/Training Program
PROC: (CPT 20680; principal; 2023-07-18 11:15)
DX: T84.84XA Pain due to internal orthopedic prosthetic devices, implants and grafts, initial encounter (principal); I10 Essential (primary) hypertension
CPT/HCPCS: 20680; 76000; 81025; 73590; J0131; J0690; J1100; J1885; J2001; J2250; J2405; J2704; J3010

== ENCOUNTER 2025-03-02 10:21 | Outpatient (CLI) | payer BC, SELFPAY ==
--- NOTE | 2025-03-02 09:15 | DI.RAD_ITS ---
Exam(s) XR TIB/FIB RT EXAM: XR TIB/FIB RT CLINICAL HISTORY: PAINFUL ORTHOPEDIC HARDWARE. TECHNIQUE: 2D digital imaging was performed. Two views. COMPARISON: CR XR TIB/FIB RT from 06/25/2023 XA XR TIB/FIB RT from 07/18/2023 FINDINGS: BONES: Intramedullary sammy is again noted through the tibia. The upper and lower screws have been removed. The fractures have healed. No acute fracture is present. No bony destructive lesion is seen. Visualized portion of knee and ankle joints are unremarkable. SOFT TISSUE: Normal. IMPRESSION: No acute abnormality. DATA REPOSITORY: RADIATION DOSE DELIVERED:
== END 2025-03-02 10:22 | disposition home or self-care (01) ==
LOC: DIORS 10:21
PROVIDERS: PCP Nurse Practitioner Family; Visit Provider Student in an Organized Health Care Education/Training Program
DX: T84.84XA Pain due to internal orthopedic prosthetic devices, implants and grafts, initial encounter (principal); S82.201A Unspecified fracture of shaft of right tibia, initial encounter for closed fracture; S82.401A Unspecified fracture of shaft of right fibula, initial encounter for closed fracture
CPT/HCPCS: 73590

== ENCOUNTER 2025-04-08 07:10 | Day surgery (SDC) | payer BC, SELFPAY ==
[2025-04-08] VITALS (28 sets, daily range): BP systolic 110–132; BP diastolic 54–82; PULSE 58–92; RESP 9–18; TEMP 36.2–36.4; O2SAT 99–100; BMI 21.2
--- NOTE | 2025-04-08 07:11 | PDOC.DSDIS_ITS ---
Date of service: 04/08/25 Discharge Plan Disposition Patient Disposition: Home Condition: Stable Discharge Details Attending Provider: Tejas Muller Primary Care Provider: ,Local Home Meds and New Rx's Prescriptions: New naproxen 250 mg tablet 250 - 500 mg PO BID PRN (Reason: Moderate pain) Qty: 40 0RF aspirin 81 mg tablet,delayed release (DR/EC) 81 mg PO DAILY 14 Days Qty: 14 0RF oxycodone 5 mg tablet 5 - 10 mg PO Q4H PRN (Reason: Moderate to severe pain) Qty: 18 0RF Continued progesterone micronized 200 mg capsule 200 mg PO QHS naltrexone 1.5 mg capsule 4 mg PO DAILY quercetin 500 mg capsule 500 mg PO DAILY multivitamin Tablet 1 tab PO DAILY omega-3 fatty acids 1,250 mg capsule 2,500 mg PO BID Cosamin ASU (with AKBA) 500 mg-116.7 mg-133.3 mg capsule 3 cap PO DAILY calcium citrate 250 mg calcium tablet 250 mg PO DAILY cholecalciferol (vitamin D3) 125 mcg (5,000 unit) capsule 125 mcg PO DAILY Probiotic (B. coagulans) 10 billion cell capsule,delayed release(DR/EC) 10 cell PO DAILY ascorbate calcium (vitamin C) 500 mg tablet 500 mg PO DAILY thyroid (pork) [Adthyza] 15 mg tablet 15 mg PO DAILY pantoprazole 40 mg tablet,delayed release (DR/EC) 40 mg PO DAILY Patient Comments: TAKE 1 TABLET BY MOUTH EVERY DAY ON EMPTY STOMACH WITH WATER AT LEAST 30-60 MINUTES BEFORE EATING Gentle Iron 28 mg iron-60mg -400 mcg-8 mcg capsule 2 cap PO DAILY Patient Comments: pt currently taking 2 tabs daily Rx Instructions: pt goes from 2-4 a day, depending. digestive enzymes Capsule 3 cap PO DAILY Rx Instructions: administer with food; swallow whole; do not crush/chew/dissolve/break/cut magnesium K-hvqtepici-okl C-D3 43.3 mg-20 mg- 3.3 mcg capsule 3 cap PO QHS lrytunhr-lzftjnvg-dmeir acids Capsule 1 cap PO BID acetaminophen 500 mg Tablet 1,000 mg PO Q6H PRN PRNQty: 0 0RF Discontinued ibuprofen 600 mg Tablet 600 mg PO Q6H PRN PRNQty: 60 0RF Discharge Instructions Additional Instructions: Surgery: Right leg removal of tibial nail 04/08/2025 Activity: Weightbearing as tolerated. Recommend elevation to minimize swelling discomfort. Encourage wiggling toes and ankle pumps to improve circulation and prevent stiffness. Gently increase knee range of motion. Quadriceps isometrics. Avoid any high-impact activities for about 6 weeks. Prescriptions: Aspirin 81 mg take 1 daily for 2 weeks to help prevent blood clot Naproxen 250 mg take 1-2 every 12 hours with a meal as needed for moderate pain Oxycodone 5 mg take 1-2 every 4-6 hours as needed for severe pain You may use obym-fmi-erqazxm Tylenol (acetaminophen) as needed for mild pain. These pain medications may be taken all at once or in different combinations as needed. Also, recommend Colace (docusate) as a stool softener as surgery and pain medicine cause constipation. You may try glbm-itj-kneolgd diphenhydramine (Benadryl) 25-50 mg nightly as a sleep aid Dressings: Leave dressing in place for 5 days. May then remove gauze and Xeroform, but keep Steri-Strips on until they start to fall off about 1-2 weeks. You may cover the incisions with wide Band-Aid. May shower after 7 days. Follow-up: 10-[address] Muller You may take off the leg compression stockings this evening at home. You may also leave them on a few days longer if you have a history of leg swelling or edema. Let us know right away if you develop any redness, drainage, fevers, chest pain, or trouble breathing. Do not drink alcohol or drive for at least 24 hours after anesthesia. Please call the office during business hours with any questions or concerns. Stand Alone Forms: Anesthesia Discharge Inst., Crutch Training Instructions, Salty Kohli (DSU), Portal Information Referrals: Tejas Muller MD [ [facility] STAFF PHYSICIAN, Orthopaedic Surgical] - 04/20/25 10:00 am Discharge Orders Discharge Orders: Discharge Order (Routine); Ordered 04/08/25 Ordered By: Lj Noel DS: Diagnosis Discharge Diagnosis (1) Painful orthopaedic hardware: Status: Acute
--- NOTE | 2025-04-08 07:17 | ROE_ITS ---
Operative Note Operative Note PRE-OP DIAGNOSIS: Right tibia painful hardware POST-OP DIAGNOSIS: same PROCEDURE: Right tibia removal intramedullary nail, CPT #11860 SURGEON: Tejas Muller ASSISTING SURGEON: Ronnell Lee PRIMER AND POWDER CANNING LEADER: Lj Noel ANESTHESIA TYPE: Local By Surgeon and General LMA/ETT Refer to Anesthesia Record ESTIMATED BLOOD LOSS: 10 COMPLICATIONS: None Patient was transported to: PACU Patient's condition: stable Indications: Please see complete medical record for details. Procedure Description: In the operating room, general anesthesia was induced. The patient was positioned supine on the operating room table. All bony prominences were well- padded. Preoperative antibiotics were administered. The right leg was prepped and draped in the usual sterile fashion. The correct patient, procedure, and side of the procedure were all verified prior to incision. The lateral patellar site was preinjected with 0.25% bupivacaine containing epinephrine and the previous incision was opened, lateral retinaculum was split, and the proximal*point exposed including the top of the nail. Bone was removed with curette. Fluoroscopic assistance was used to place the extraction bolt, but the threads were poor and it had poor grab in the nail. The other extraction bolt was then tried and would thread but not securely enough for extraction. Bone was ensured to be removed from within the top of the nail, ball-tipped guidewire was sent down through the nail up to the ankle to clear bone from the locking nail sites breaking free some bone especially distally. A second ball-tipped guidewire was attempted in order to incarcerate them together and help remove the nail, but the nail could not accommodate 2 ball-tipped gu idewires. Broken screw removal instruments were then obtained as well as the tibial insertion instruments and various threading and reverse threading devices were attempted to insert into the proximal part of the nail with impacting and vice eye specialist used to assist. Despite engaging multiple removal tools, the nail would not budge. The incision was extended slightly distally, the patellar tendon was reflected slightly anteriorly, curettes and Jules's were used to remove bone definitively around the proximal portion of the nail. Vice end worker needle-nose was placed around the start and used to vigorously loosen the nail. Dr. Lee was available and then helped engage one of the extractor bolts, which was able to steadily deliver the nail from the leg with backslapping. Final x-rays confirmed complete removal and no fractures proximally distally. The wound was copiously irrigated with normal saline. There was metal debris from all the removal attempts that was meticulously removed with rongeur's and pickups. The deep wound was copiously irrigated again. The lateral retinaculum is closed with 2-0 Monocryl interrupted. Subcutaneous tissue was irrigated and similar middle degree removed for was irrigated again. Subcutaneous tissue was then closed in 2-0 Monocryl buried interrupted followed by 3-0 Monocryl running. Steri-Strips applied across the incision followed by Xeroform, 4 x 4's, and the knee gently wrapped in Brant bandage. The patient awoke from anesthesia without complication and was transferred to the recovery room in a stable condition. Date of Procedure: 04/08/25
[2025-04-08] MEDS: Lactated Ringers 1,000 ML 30 ML IV (08:26)
--- NOTE | 2025-04-08 08:29 | W.ANESPRE ---
General Info Date of Service Date Performed: 04/08/25 Height: 5 ft 4 in Weight: 56 kg Body Mass Index (BMI): 21.2 Surgical Procedure: Operation Date: 04/08/25 08:55 Proposed Procedure Side Surgeon p Removal of Tibial Nail Right Tejas Muller MD Actual Procedure Side Surgeon p Removal of Tibial Nail Right Tejas Muller MD Pre-Op Diagnosis Post-Op Diagnosis (1) Painful orthopaedic hardware: (2) Closed fracture of right tibia and fibula: Meds Allergies and Home Medications Allergies Allergy/AdvReac Type Severity Reaction Status Date / Time Sulfa (Sulfonamide Allergy Intermediate Itching Verified 04/08/25 07:40 Antibiotics) Home Medication Medication Instructions Recorded acetaminophen 500 mg tablet 1,000 mg (2 x 500 mg) PO Q6H PRN 07/29/22 PRN #0 tabs ibuprofen 600 mg tablet 600 mg PO Q6H PRN PRN #60 tabs 07/29/22 Bacillus coagulans 10 billion cell 10 cell PO DAILY 07/02/23 capsule,delayed release (Probiotic (B. coagulans)) ascorbate calcium (vitamin C) 500 500 mg PO DAILY 07/02/23 mg tablet Held on 04/07/25. Instructions: Pt Stopped/Never Started calcium citrate 250 mg PO DAILY 07/02/23 Held on 04/07/25. Instructions: Pt Stopped/Never Started cholecalciferol (vitamin D3) 125 125 mcg PO DAILY 07/02/23 mcg (5,000 unit) capsule Held on 04/07/25. Instructions: Pt Stopped/Never Started glucosamine 500 mg-chondroitin 3 cap PO DAILY 07/02/23 116.7 mg-herbal no.270 133.3 mg capsule (Cosamin ASU (with AKBA)) Held on 04/07/25. Instructions: Pt Stopped/Never Started multivitamin 1 tab PO DAILY 07/02/23 Held on 04/07/25. Instructions: Pt Stopped/Never Started omega-3 fatty acids 1,250 mg 2,500 mg PO BID 07/02/23 capsule quercetin 500 mg capsule 500 mg PO DAILY 07/02/23 naltrexone 1.5 mg capsule 4 mg PO DAILY 03/02/25 progesterone micronized 200 mg 200 mg PO QHS 03/02/25 capsule digestive enzymes 3 cap PO DAILY 04/07/25 iron bis glycinate claudia 28 mg 2 cap PO DAILY 04/07/25 iron-vit C 60 mg-FA 400 mcg-B12 8mcg cap (Gentle Iron) magnesium L-threonate 43.3 3 cap PO QHS 04/07/25 mg-vitamin C 20 mg-vit D3 3.3 mcg capsule zbayajzb-qgqvbojo-zqzqv acids 1 cap PO BID 04/07/25 capsule pantoprazole 40 mg tablet,delayed 40 mg PO DAILY 04/07/25 release thyroid (pork) 15 mg tablet 15 mg PO DAILY 04/07/25 (Adthyza) Current Visit Medications: Current Medications Generic Name Dose Route Start Last Admin Trade Name Freq PRN Reason Stop Dose Admin Ringer's Solution 1,000 mls @ 30 mls/hr 04/08/25 06:00 04/08/25 08:26 IV 04/08/25 23:59 30 mls/hr INFUSION BELL Administration Cefazolin Sodium/Dextrose 2 gm in 50 mls @ 100 mls/hr 04/08/25 06:00 Ancef Duplex IVPB 04/08/25 23:59 PREOP BELL Tranexamic Acid/Sodium Chloride 1,000 mg in 100 mls @ 600 mls/hr 04/08/25 06:00 IVPB 04/08/25 23:59 PREOP BELL IV Miscellaneous Supplies 1 each 04/08/25 06:00 Iv Access IV 04/08/25 23:59 DIRECTED BELL Oxycodone HCl 0 mg 04/08/25 07:09 Oxycodone 5 Mg Tab PO 05/08/25 07:08 Q3H PRN PRN Pain Sodium Chloride 0 ml 04/08/25 06:00 Normal Saline Flush 10 Ml Syr IV 04/08/25 23:59 PRN PRN Sodium Chloride 0 ml 04/08/25 06:00 Normal Saline 10 Ml Vial IJ 04/08/25 23:59 DIRECTED PRN Sterile Water 0 ml 04/08/25 06:00 Water,Injection,Sterile 10 Ml Vial IJ 04/08/25 23:59 DIRECTED PRN PFSH Active Problems Active Problems: Problem Status Onset Code Fatigue Acute R53.83 Painful orthopaedic hardware Acute T84.84XA COVID Acute U07.1 Hypertension Chronic I10 Perineal pain Acute R10.2 Fracture of posterior malleolus of right tibia Acute 07/12/22 S82.391A Closed fracture of right tibia and fibula Acute 07/12/22 S82.201A, S82.401A Swelling of left foot Acute M79.89 SUSSY (stress urinary incontinence, female) Acute N39.3 Anxiety Chronic Medical History Medical History Pre-eclampsia Gestational diabetes mellitus (GDM) affecting 3 hour test F96, 1 h 187, 2h 150, 3h 99 Family history of thyroid disease in mother Surgical History Surgical History S/P hardware removal S/P laparoscopy Repair of umbilical hernia 2011 [facility] Tobacco Smoking/Tobacco Use Status: Never Alcohol Alcohol Intake: current Alcohol intake frequency: holidays/special occasions only Substance Use Substance use: Never Substance use type: does not use Prental History History 2 Para 3 Hx # Term Pregnancies 2 Multiple births 0 Hx # Pregnancies 0 Ectopic pregnancies 0 AB induced 0 Hx Number of Living Children 2 AB spontaneous 0 Past Pregnancies Del. Date GA/Weeks # Preg Succ Route Wgt Sex Labor Lgth Anesthesia Location Prov [facility] 01/12/05 39 No Yes vaginal 2948.35 g Female [facility] [place], [place] 07/25/22 38 No Yes vaginal 3390.008 g Male AOC Delivery Date: 01/12/05 Last Updated by: Ashlyn Blake CNM SROM X 12 hours then augmentation with delivery 6 hours later. Vital Signs and Lab Results Vital Signs Most Recent Vital Signs in EMR: Most Recent Vital Signs Temp Pulse Resp BP Pulse Ox 36.3 C L 92 H 18 131/82 100 04/08/25 07:32 04/08/25 07:32 04/08/25 07:32 04/08/25 07:32 04/08/25 07:32 Point of Care Results Point of Care Results: POC- Test(urine) Negative 04/08/25 07:51 Imaging and Studies Imaging and Studies Study information below may be from another EMR and interpreted by another provider. Please see original notes in EMR for more complete details. EKG Summary: EKG PATIENT NAME: Lizy Nice UNIT #: [id number] ORDERING PROVIDER: Melisa Shea M.D. PRIMARY CARE PROVIDER: Fito Harris DATE/TIME OF SERVICE: 12/29/222356 : 1980 PERFORMING LOCATION: ER APPROVED REPORT Exam: Resting ECG Reason for Exam: heart feels funny Patient Location: E HR:[id number] bpm ECG Measurements Heart Rate [id number] AXIS [place] [id number] P [id number] QRSd [id number] QRS [id number] QT [id number] QTc 0 Conclusion Not a interpretable ECG <Electronically signed by Melisa Shea M.D. in [place]> E-Sign Date: 01/02/23 E-Sign Time: 2313 ADDENDUM APPROVED REPORT Exam: Resting ECG Reason for Exam: heart feels funny Patient Location: E HR:[id number] bpm ECG Measurements Heart Rate [id number] AXIS NH [id number] P [id number] QRSd [id number] QRS [id number] QT [id number] QTc 0 Conclusion Not a interpretable ECG I have reviewed and I agree with the emergency room physician's ECG interpretation. Electronically signed by: <Electronically signed by Cora Claros M.D. in [place]> 01/03/23 0807 Cosigned by: Anesthesia Assessment and Plan Anesthesia History Personal History: Delayed Emergence Family History: No Family History of Anesthesia Complications Exercise Tolerance Exercise Tolerance: Metabolic Equivalents>4 Pertinent Negatives Pertinent Negatives: No Major Cardiovascular Symptoms or Complaints, No Major Pulmonary Symptoms or Complaints and No History of CVA/TIA Cardiac & Pulmonary Exam Cardiac Exam: Normal S1/S2 Heart Sounds Pulmonary Exam: Clear Bilateral Breath Sounds Implantable Cardiac Device Does patient have a Pacemaker or an ICD?: No Airway Exam Known Difficult Airway: No Mallampati Class: 2 Mouth Opening: Normal (> 3cm) Thyromental Distance: Greater than 3 cm Neck Range of Motion: Full ROM Neck Circumference: Normal Teeth Condition: Normal Dentition Tooth Numbering:  1. Recent non-permanent crown. ASA Classification ASA Score: ASA 2 Emergency Case?: No NPO Status NPO Status: NPO Clears >2 hours, Solids >8 hours Status Status: Negative HCG Anesthesia Plan Resuscitation Status: Full Code Anesthesia Technique: General Anesthesia Airway Planned: Endotracheal Tube Pain Management: Surgeon and patient request nerve block Monitors Used: Standard Monitors Preoperative Comments:: Patient interested in a rescue block. She felt that what she had last time worked well, on review she had a popliteal/adductor last visit.
[2025-04-08] MEDS: ceFAZolin 2 GM/50 ML BAG IVPB (09:22)
[2025-04-08] MEDS: TRANEXAMIC ACID/SOD. CHL. 1,000 MG/100 ML BAG 600 MG IVPB (09:30)
[2025-04-08] MEDS: Bupivacaine 0.25% Pres-Free W/EPI 30 ML VIAL (09:51)
--- NOTE | 2025-04-08 12:10 | DI.RAD_ITS ---
Exam(s) XR TIB/FIB RT EXAM: XR TIB/FIB RT CLINICAL HISTORY: (1) Painful orthopaedic hardware. TECHNIQUE: 2D digital imaging was performed. COMPARISON: No exams were available for comparison FINDINGS: Fluoroscopy provided during hardware removal performed orthopedic surgeon. See procedure report for details IMPRESSION: Radiation exposure index/cumulative dose:janette Donnelly= 2.36mGy DATA REPOSITORY: RADIATION DOSE DELIVERED:
[2025-04-08] MEDS: Ketorolac 15 MG/ML VIAL IVP (12:50)
[2025-04-08] MEDS: fentaNYL 100 MCG/2 ML VIAL IVP ×2 (12:58→13:10)
[2025-04-08] MEDS: oxyCODONE 5 MG TAB PO (14:02)
--- NOTE | 2025-04-08 14:03 | W.ANESPOSTOP ---
Postoperative Evaluation Date, Time and Location Date Performed: 04/08/25 Time Performed: 14:03 Patient Location: Day Surgery Unit Vital Signs Most Recent Imported Vital Signs: Most Recent Vital Signs Temp Pulse Resp BP Pulse Ox 36.4 C L 81 14 125/66 100 04/08/25 13:57 04/08/25 13:57 04/08/25 13:57 04/08/25 13:57 04/08/25 13:57 Pain Score Most Recent Pain Score: Most Recent Pain Score Pain Level 5 04/08/25 13:57 Assessment Mental Status: Awake (Alert & Oriented to Patient Baseline) Airway and Respiratory Function: Patent airway with normal (patient baseline) respiratory exam Cardiovascular Function: Hemodynamically Stable Hydration Status: Adequately Hydrated Nausea & Vomiting: No Nausea or Vomiting Pain: Pain is tolerable per patient Peripheral Nerve Block: Patient did not receive a nerve block
== END 2025-04-08 15:05 | disposition home or self-care (01) ==
LOC: SUR 07:11
PROVIDERS: Visit Provider Student in an Organized Health Care Education/Training Program
PROC: (CPT 20680; principal; 2025-04-08 08:45)
DX: T84.84XA Pain due to internal orthopedic prosthetic devices, implants and grafts, initial encounter (principal)
CPT/HCPCS: 20680; 76000; 81025; 73590; J0131; J0690; J1100; J1885; J2003; J2250; J2371; J2405; J2704; J3010